=== PATIENT | male | born 1950 | race Hispanic/Latino ===

== ENCOUNTER 2018-07-25 07:42 | Emergency (ER) | payer OTHER ==
[2018-07-25 08:33] LABS: Absolute Lymphocytes (CBC) 1.2 K/uL (0.7-4.9); Absolute Monocytes 0.4 K/uL (0.1-1.3); Absolute Neutrophil 3.1 K/uL (1.8-8.0); Basophils % 0.5 % (0-1.3); Eosinophils % 3.6 % (0-4.4); Lymphocytes % 23.5 % (15.3-44.8); MCH 30.1 pg (27.0-35.0); MCV 87.8 fL (80-100); Monocytes % 8.3 % (3.3-12.3); RBC Red Blood Cell Count 4.32 M/uL (4.33-5.43)
[2018-07-25] MEDS ORDERED: PANTOPRAZOLE 40 MG INJ ONE (08:42)
[2018-07-25 08:51] LABS: Albumin 3.9 g/dL (3.4-5.0); Bilirubin Total 0.4 mg/dL (0.2-1.0); Potassium 4.1 mmol/L (3.5-5.1); Protein, Total 7.5 g/dL (6.4-8.2)
--- NOTE | 2018-07-25 09:10 | RAD REPORT ---
EXAM DESCRIPTION: US - Extrem Venous W Compress Jorge - 07/25/2018 8:57 am CLINICAL HISTORY: Leg pain and swelling COMPARISON: Right leg DVT study November 2017 TECHNIQUE: Real-time sonographic evaluation of the bilateral lower extremity common femoral, superfi cial femoral, popliteal and posterior tibial veins was performed. FINDINGS: Normal compressibility, flow augmentation, phasic flow and spontaneous flow are identified in the left and right lower extremity common femoral, superficial femoral, popliteal and posterior t ibial veins. No intraluminal filling defects seen. IMPRESSION: No DVT in either lower extremity.
--- NOTE | 2018-07-25 09:35 | RAD REPORT ---
EXAM DESCRIPTION: CT - Abdomen Pelvis W/Wo Contrast - 07/25/2018 9:11 am CLINICAL HISTORY: Abdominal pain, GI bleed, left leg pain COMPARISON: None. TECHNIQUE: Biphasic, helical CT imaging of the abdomen and pelvis was performed following 100 ml non -ionic IV contrast. Precontrast images of the abdomen were obtained. No oral contrast administered. All CT scans are performed using dose optimization technique as appropriate and may include automated exposure control or mA/KV adjustment according to patient size. FINDINGS: Patchy alveolar opacities are present in the medial right lung base. Patient has some comp onent of lung base scarring and prominent fatty tissues secondary to Bochdalek's type hernias in each medial hemidiaphragm. A small hiatal hernia is present with approximately 15% of the stomach intrath oracic. No pericardial thickening or effusion. No pleural effusion. Liver shows a diffuse fatty infiltration pattern. Left lobe is prominent. No capsular nodularity or f ocal liver parenchymal lesions seen. No splenomegaly or suspicious splenic finding. Pancreas and beto pancreatic tissues without significant finding. Gallbladder and biliary tree are also without suspici ous finding. Symmetric renal function is seen with no hydronephrosis or suspicious renal mass. No pyelonephritis o r acute renal parenchymal mass. Contracted urinary bladder shows no suspicious finding. Prostate glan d and seminal vesicles within normal limits. No gastric wall thickening or suspicious gastric mass identifiable. Only a small amount of content pr esent within the lumen. No dilated small bowel or bowel wall thickening present. No appendicitis find ings. There is a moderate volume of stool throughout the colon. Sigmoid is tortuous with minimal dive rticulosis. No diverticulitis. No colon wall thickening or mass identifiable. No abnormality on this examination to explain GI bleed. No appendicitis findings. No free air, free fluid or inflammatory st randing. No mass or bulky lymphadenopathy. Patient has a very small umbilical hernia. Small bilatera l fat filled inguinal hernias are present. No adrenal abnormality. No suspicious bony findings. Bony degenerative changes are present. L5 pars interarticularis defects are present with grade 1 spondylolisthesis. Prominent L5-S1 degenerative disc disease present. IMPRESSION: Redundant sigmoid colon with mild diverticulosis. No diverticulitis. There is moderate stool volume throughout the colon. No acute colon finding identifiable. No acute GI process seen and no abnormality to explain GI bleed. Hiatal hernia with approximately 15% of the stomach intrathoracic. No specific finding for gastritis or gastric mass. Fatty infiltration of the liver. Hiatal hernia and bilateral Bochdalek's type hernias in each medial hemidiaphragm. Patient has very m inimal umbilical fat hernia and small bilateral inguinal hernias. No acute components. Minimal medial right base lung parenchymal opacification that is probably atelectasis rather than ear ly pneumonia.
--- NOTE | 2018-07-25 10:25 | EDPHYS ---
Physician Documentation [facility] Name: Anthony Rooney Age: 67 yrs Sex: Male : 1950 Arrival Date: 07/25/2018 Time: 07:46 Bed 19 Private MD: KVNG LUZ ED Physician Timothy Albert HPI: 07/25 08:12 This 67 yrs old Male presents to ER via Ambulatory with complaints of ps1 Abdominal Pain, Leg Pain, Bloody Stools. 08:12 patient describing epigastric pain and associated hematochezia. Streaking on toilet ps1 paper. Onset was 3 days ago. Remote history of the same in which he had cauterization of epigastric ulcer. Pain rated as mild. 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 No remitting or exacerbating factors. Additionally patient has left leg pain extending from the groin to the calf. No hx of DVT. . Historical: - Allergies: 07:59 NKA; tw2 - PMHx: 07:59 Hypertension; Diabetes - IDDM; tw2 - PSHx: 07:59 None; tw2 - Immunization history:: Adult Immunizations. - Social history:: Patient uses alcohol, on a daily basis. Smoking status: Patient/guardian denies using tobacco. - Ebola Screening: : Patient denies travel to an Ebola-affected area in the 21 days before illness onset. ROS: 08:12 Constitutional: Negative for fever, chills, and weight loss, Eyes: Negative for injury, ps1 pain, redness, and discharge, Cardiovascular: Negative for chest pain, palpitations, and edema, Respiratory: Negative for shortness of breath, cough, wheezing, and pleuritic chest pain, Back: Negative for injury and pain, Skin: Negative for injury, rash, and discoloration, Neuro: Negative for headache, weakness, numbness, tingling, and seizure. 08:12 Abdomen/GI: Positive for abdominal pain, black/tarry stool, rectal bleeding. 08:12 MS/extremity: Positive for pain. Exam: 08:12 Constitutional: This is a well developed, well nourished patient who is awake, alert, ps1 and in no acute distress. Head/Face: Normocephalic, atraumatic. Chest/axilla: Normal chest wall appearance and motion. Nontender with no deformity. No lesions are appreciated. Cardiovascular: Regular rate and rhythm. No gallops, murmurs, or rubs. Normal PMI, no JVD. No pulse deficits. Respiratory: Lungs have equal breath sounds bilaterally, clear to auscultation and percussion. No rales, rhonchi or wheezes noted. No increased work of breathing, no retractions or nasal flaring. Abdomen/GI: Soft, non-tender, with normal bowel sounds. No distension or tympany. No guarding or rebound. No evidence of tenderness throughout. Neuro: Awake and alert, GCS 15, oriented to person, place, time, and situation. Cranial nerves II-XII grossly intact. Sensory grossly intact. Psych: Awake, alert, with orientation to person, place and time. Behavior, mood, and affect are within normal limits. 08:12 Musculoskeletal/extremity: Extremities: grossly normal except: noted in the left leg: tenderness. Vital Signs: 07:59 BP 200 / 99; Pulse 93; Resp 16; Temp 97.9(TE); Pulse Ox 99% on R/A; Weight 99.79 kg; ss Height 5 ft. 9 in. (175.26 cm); Pain 2/10; 08:56 BP 165 / 88; Pulse 74; Resp 17; Pulse Ox 97% on R/A; tw2 09:52 BP 179 / 83; Pulse 80; Resp 17; Pulse Ox 100% on R/A; tw2 10:35 BP 181 / 98; Pulse 75; Resp 17; Pulse Ox 97% on R/A; tw2 07:59 Body Mass Index 32.49 (99.79 kg, 175.26 cm) MDM: 08:07 Patient medically screened. ps1 10:22 Data reviewed: vital signs, nurses notes, lab test result(s), radiologic studies, CT ps1 scan, and as a result, I will discharge patient. 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 ED course: hgb stable. No new episodes of christo blood. Protonix given. Home with the same. Precautions given. Stable for discharge. 07/25 08:05 Order name: CBC with Diff; Complete Time: 08:38 ps1 07/25 08:05 Order name: Creatinine for Radiology; Complete Time: 08:52 ps1 07/25 08:05 Order name: Lipase; Complete Time: 08:52 ps1 07/25 08:05 Order name: CMP; Complete Time: 08:52 ps1 07/25 08:05 Order name: CT Abd/Pelvis- W/WO Contrast; Complete Time: 10:18 ps1 07/25 10:01 Order name: Urine Dipstick--Ancillary (enter results) bd 07/25 08:05 Order name: IV Saline Lock; Complete Time: 08:28 ps1 07/25 08:05 Order name: Labs collected and sent; Complete Time: 08:28 ps1 07/25 08:05 Order name: Urine Dipstick-Ancillary (obtain specimen); Complete Time: 10:05 [facility] 07/25 08:17 Order name: Extrem Venous W Compression Jorge US; Complete Time: 09:18 ps1 Administered Medications: 08:38 Drug: ProTONIX 80 mg Route: IVP; Site: left antecubital; tw2 09:39 Follow up: Response: No adverse reaction tw2 Disposition: 07/25/18 10:25 Discharged to Home. Impression: GI bleed, Uncontrolled Hypertension, Fatty liver. - Condition is Stable. - Discharge Instructions: Rectal Bleeding. - Prescriptions for Protonix 40 mg Oral Tablet - take 1 tablet by ORAL route once daily; 30 tablet. - Medication Reconciliation Form, Thank You Letter, Antibiotic Education, Prescription Opioid Use form. - Follow up: KVNG LUZ; When: As needed; Reason: Further diagnostic work-up, Recheck today's complaints, Continuance of care, Re-evaluation by your physician. Follow up: Thiago Velasquez MD; When: 48 Hours; Reason: Further diagnostic work-up, Recheck today's complaints, Continuance of care, Re-evaluation by your physician. - Problem is new. - Symptoms have improved. Signatures: Dispatcher [employer] Nicole Gomez, RN RN tw2 Timothy Albert MD MD ps1 Corrections: (The following items were deleted from the chart) 10:36 10:25 07/25/2018 10:25 Discharged to Home. Impression: GI bleed; Uncontrolled tw2 Hypertension; Fatty liver. Condition is Stable. Forms are Medication Reconciliation Form, Thank You Letter, Antibiotic Education, Prescription Opioid Use. Follow up: KVNG LUZ; When: As needed; Reason: Further diagnostic work-up, Recheck today's complaints, Continuance of care, Re-evaluation by your physician. Follow up: Thiago Velasquez; When: 48 Hours; Reason: Further diagnostic work-up, Recheck today's complaints, Continuance of care, Re-evaluation by your physician. Problem is new. Symptoms have improved. ps1
--- NOTE | 2018-07-25 10:25 | ER ---
Nurse's Notes [facility] Name: Anthony Rooney Age: 67 yrs Sex: Male : 1950 Arrival Date: 07/25/2018 Time: 07:46 Bed 19 Private MD: KVNG LUZ Diagnosis: GI bleed;Uncontrolled Hypertension;Fatty liver Presentation: 07/25 07:59 Presenting complaint: Patient states: dark red blood in stool that began 3 days ago ss with epigastric burning and nausea. Pt also c/o pain to L leg and is concerned because he believes he has poor circulation. Transition of care: patient was not received from another setting of care. Onset of symptoms was July 22, 2018. Risk Assessment: Do you want to hurt yourself or someone else? Patient reports no desire to harm self or others. Initial Sepsis Screen: Does the patient meet any 2 criteria? No. Patient's initial sepsis screen is negative. Does the patient have a suspected source of infection? No. Patient's initial sepsis screen is negative. Care prior to arrival: None. 07:59 Method Of Arrival: Ambulatory ss 07:59 Acuity: NAE 3 ss 08:00 Onset of symptoms was July 22, 2018. Risk Assessment: Do you want to hurt yourself tw2 or someone else? Patient reports no desire to harm self or others. Initial Sepsis Screen: Does the patient meet any 2 criteria? No. Patient's initial sepsis screen is negative. Does the patient have a suspected source of infection? No. Patient's initial sepsis screen is negative. Care prior to arrival: None. Historical: - Allergies: 07:59 NKA; tw2 - PMHx: 07:59 Hypertension; Diabetes - IDDM; tw2 - PSHx: 07:59 None; tw2 - Immunization history:: Adult Immunizations. - Social history:: Patient uses alcohol, on a daily basis. Smoking status: Patient/guardian denies using tobacco. - Ebola Screening: : Patient denies travel to an Ebola-affected area in the 21 days before illness onset. Screenin:58 Abuse screen: Denies threats or abuse. Nutritional screening: No deficits noted. tw2 Tuberculosis screening: No symptoms or risk factors identified. Fall Risk None identified. Assessment: 07:57 General: Appears in no apparent distress. well groomed, Behavior is calm, cooperative, tw2 appropriate for age. Pain: Complains of pain in epigastric area. Neuro: Level of Consciousness is awake, alert, obeys commands, Oriented to person, place, time, situation. Cardiovascular: Denies chest pain, shortness of breath, Heart tones S1 S2 Patient's skin is warm and dry. Respiratory: Airway is patent Respiratory effort is even, unlabored, Respiratory pattern is regular, symmetrical, Breath sounds are clear bilaterally. GI: Abdomen is round non-distended, Bowel sounds present X 4 quads. Abd is soft X 4 quads Reports bloody stool, nausea, since 3days. : No signs and/or symptoms were reported regarding the genitourinary system. EENT: No signs and/or symptoms were reported regarding the EENT system. Derm: No signs and/or symptoms reported regarding the dermatologic system. Musculoskeletal: Range of motion: intact in all extremities. 08:56 Reassessment: Patient appears in no apparent distress at this time. No changes from tw2 previously documented assessment. Patient and/or family updated on plan of care and expected duration. Pain level reassessed. Patient is alert, oriented x 3, equal unlabored respirations, skin warm/dry/pink. 10:00 Reassessment: Patient appears in no apparent distress at this time. No changes from tw2 previously documented assessment. Patient and/or family updated on plan of care and expected duration. Pain level reassessed. Patient is alert, oriented x 3, equal unlabored respirations, skin warm/dry/pink. 10:35 Reassessment: Patient appears in no apparent distress at this time. No changes from tw2 previously documented assessment. Patient and/or family updated on plan of care and expected duration. Pain level reassessed. Patient is alert, oriented x 3, equal unlabored respirations, skin warm/dry/pink. Vital Signs: 07:59 BP 200 / 99; Pulse 93; Resp 16; Temp 97.9(TE); Pulse Ox 99% on R/A; Weight 99.79 kg; ss Height 5 ft. 9 in. (175.26 cm); Pain 10/23; 08:56 BP 165 / 88; Pulse 74; Resp 17; Pulse Ox 97% on R/A; tw2 09:52 BP 179 / 83; Pulse 80; Resp 17; Pulse Ox 100% on R/A; tw2 10:35 BP 181 / 98; Pulse 75; Resp 17; Pulse Ox 97% on R/A; tw2 07:59 Body Mass Index 32.49 (99.79 kg, 175.26 cm) ED Course: 07:46 Patient arrived in ED. sb2 07:47 KVNG LUZ is Private Physician. sb2 07:52 Timothy Albert MD is Attending Physician. ps1 07:54 Nicole Perez RN is Primary Nurse. tw2 07:54 Arm band placed on. tw2 07:54 Placed in gown. Bed in low position. Adult w/ patient. Pulse ox on. NIBP on. Warm tw2 blanket given. 08:01 Triage completed. ss 08:10 Inserted saline lock: 22 gauge in left antecubital area, using aseptic technique. Blood tw2 collected. Missed attempt(s): 22 gauge in left forearm. Bleeding controlled, band aid applied, catheter tip intact. 08:56 Extrem Venous W Compression Jorge US In Process Unspecified. EDMS 09:11 CT Abd/Pelvis- W/WO Contrast In Process Unspecified. EDMS 10:24 KVNG LUZ is Referral Physician. ps1 10:24 Thiago Velasquez MD is Referral Physician. ps1 10:35 No provider procedures requiring assistance completed. IV discontinued, intact, tw2 bleeding controlled, No redness/swelling at site. Pressure dressing applied. Administered Medications: 08:38 Drug: ProTONIX 80 mg Route: IVP; Site: left antecubital; tw2 09:39 Follow up: Response: No adverse reaction tw2 Outcome: 10:25 Discharge ordered by . ps1 10:36 Discharged to home ambulatory. tw2 10:36 Condition: stable 10:36 Discharge instructions given to patient, Instructed on discharge instructions, follow up and referral plans. medication usage, Demonstrated understanding of instructions, follow-up care, medications, Prescriptions given X 1. 10:36 Patient left the ED. tw2 Signatures: Dispatcher [employer] EDLisbeth Lowe RN RN Nicole Perez RN RN tw2 Timothy Albert MD MD ps1 Shazia Mcmanus sb2
[2018-07-25 10:40] LABS: Urine Blood NEGATIVE (NEG); Urine Glucose 2+ (NEG); Urine Protein 1+ (NEG); Urine Specific Gravity 1.015 (1.005-1.030); Urine pH 7.5 (5.0-7.0)
[2018-07-25 10:49] VITALS: TEMP 97.9
[2018-07-25 10:53] VITALS: BP 181/98; O2SAT 97
== END 2018-07-25 10:36 | disposition home or self-care (01) ==
LOC: ER 07:42
DX: I10 Essential (primary) hypertension (principal); K76.0 Fatty (change of) liver, not elsewhere classified
CPT/HCPCS: 36415; 74178; 80053; 81003; 83690; 85025; 93970; 96374; 99284; C9113; Q9967

== ENCOUNTER 2018-08-03 08:58 | Emergency (ER) | payer OTHER ==
[2018-08-03] MEDS ORDERED: NA CHLORIDE 0.9% 1,000 ML ONE (09:31)
[2018-08-03 09:38] LABS: Absolute Lymphocytes (CBC) 1.4 K/uL (0.7-4.9); Absolute Monocytes 0.4 K/uL (0.1-1.3); Absolute Neutrophil 3.2 K/uL (1.8-8.0); Eosinophils % 2.5 % (0-4.4); Hematocrit 30.6 % (39.6-49.0); Lymphocytes % 26.9 % (15.3-44.8); MCH 30.8 pg (27.0-35.0); MPV 6.7 fL (7.6-11.3); Monocytes % 7.7 % (3.3-12.3); RBC Red Blood Cell Count 3.48 M/uL (4.33-5.43)
[2018-08-03 09:51] LABS: Protime INR 1.2
[2018-08-03 09:55] LABS: ALT/SGPT 35 U/L (12-78); AST/SGOT 22 U/L (15-37); Albumin 3.8 g/dL (3.4-5.0); Alkaline Phosphatase 79 U/L (45-117); BUN Blood Urea Nitrogen 24 mg/dL (7-18); Bicarbonate 29 mmol/L (21-32); Bilirubin Direct 0.1 mg/dL (0-0.2); Bilirubin Total 0.4 mg/dL (0.2-1.0); Glucose Level 211 mg/dL (74-106); Lipase 119 U/L (73-393); Magnesium 3.1 mg/dL (1.8-2.4); NT PRO-BNP 206 pg/mL (<125); Potassium 3.5 mmol/L (3.5-5.1); Sodium Level 140 mmol/L (136-145); Troponin (Emerg Dept Use Only) < 0.02 ng/mL (0.0-0.045)
--- NOTE | 2018-08-03 10:27 | EKG ---
Test Date: 2018-08-03 Test Time: 10:02:02 Brick Catcher: MARION MEASUREMENT RESULTS: Intervals: Rate: 65 IA: 172 QRSD: 98 QT: 448 QTc: 465 [place]: P: 3 IA: 172 QRS: 0 T: 74 INTERPRETIVE STATEMENTS: Normal sinus rhythm Minimal voltage criteria for LVH, may be normal variant Prolonged QT Abnormal ECG Compared to ECG 02/08/2017 06:43:50 Left ventricular hypertrophy now present Prolonged QT interval now present Electronically Signed On 08-03-18 10:26:43 RECEPTION AGENT by Chay Contreras
--- NOTE | 2018-08-03 10:55 | RAD REPORT ---
EXAM DESCRIPTION: RAD - Chest Single View - 08/03/2018 10:37 am CLINICAL HISTORY: COUGH Chest pain. COMPARISON: Chest Single View dated 02/07/2017 FINDINGS: Portable technique limits examination quality. The lungs are grossly clear. The heart is normal in size. No displaced fractures. IMPRESSION: No acute intrathoracic process suspected.
[2018-08-03 10:59] LABS: Urine Blood NEGATIVE (NEG); Urine Glucose NEGATIVE (NEG); Urine Protein 1+ (NEG); Urine Specific Gravity >1.030 (1.005-1.030)
--- NOTE | 2018-08-03 14:17 | RAD REPORT ---
EXAM DESCRIPTION: NM - GI Blood Loss Imaging - 08/03/2018 2:09 pm CLINICAL HISTORY: rectal bleed Abdominal pain COMPARISON: Abdomen Pelvis W/Wo Contrast dated 07/25/2018 FINDINGS: The patient was administered 26 millicuries technetium RBCs. Increased radiopharmaceutical accumulation is seen in the region of the hepatic flexure of the colon demonstrating some movement with time. This is most compatible with active GI bleeding. IMPRESSION: Active GI bleeding is suspected in the hepatic flexure of the colon.
[2018-08-03] MEDS ORDERED: CIPROFLOXACIN 400mg IV 400 MG/200 ML BAG IV ONE (14:43)
[2018-08-03] MEDS ORDERED: FAMOTIDINE 20 MG/2 ML VIAL IV ONE (14:43)
[2018-08-03] MEDS ORDERED: LABETALOL 20 MG/4ML SYRINGE IV ONE ×3 (14:43→22:22)
[2018-08-03] MEDS ORDERED: METRONIDAZOLE 500mg IVPB 500 MG/100 ML BAG IV ONE (14:43)
--- NOTE | 2018-08-03 14:49 | EDPHYS ---
Physician Documentation [facility] Name: Anthony Rooney Age: 67 yrs Sex: Male : 1950 Arrival Date: 08/03/2018 Time: 09:02 Bed 16 Private MD: Justice Moulton H ED Physician Eduar Smith HPI: 08/03 13:06 This 67 yrs old Male presents to ER via Ambulatory with complaints of Rectal fabrice Bleeding. 13:06 The patient presents to the emergency department with bleeding from the rectum/anus, fabrice that is moderate. Onset: The symptoms/episode began/occurred 2 day(s) ago. Context: the patient has no known special context relating to the rectal area complaint(s). Modifying factors: The symptoms are alleviated by nothing, The symptoms are aggravated by nothing. Associate signs and symptoms: The patient has no apparent associated signs or symptoms. The patient has not experienced similar symptoms in the past. Historical: - Allergies: 09:15 NKA; ss - Home Meds: 09:15 unknown cholesterol medicaiton [Active]; Victoza 1.8 units BID [Active]; metformin ss 1,000 mg Oral tab 1 tab 2 times per day [Active]; Lisinopril 20 mg BID [Active]; 09:30 diclofenac sodium 75 mg tablet, delayed release PRN [Active]; omeprazole 20 mg Oral ss cpDR 1 cap once daily [Active]; Reglan 10 mg Oral tab 3 tabs "use as directed by your colonoscopy packet instructions" [Active]; - PMHx: 09:15 Diabetes - IDDM; Hypertension; High Cholesterol; ss - Immunization history:: Adult Immunizations unknown, Flu vaccine is not up to date. - Social history:: Smoking status: Patient/guardian denies using tobacco. - Ebola Screening: : Patient denies exposure to infectious person Patient denies travel to an Ebola-affected area in the 21 days before illness onset. - Family history:: not pertinent. ROS: 13:06 Constitutional: Negative for fever, chills, and weight loss, Eyes: Negative for injury, fabrice pain, redness, and discharge, ENT: Negative for injury, pain, and discharge, Neck: Negative for injury, pain, and swelling, Cardiovascular: Negative for chest pain, palpitations, and edema, Respiratory: Negative for shortness of breath, cough, wheezing, and pleuritic chest pain, Back: Negative for injury and pain, : Negative for injury, bleeding, discharge, and swelling, MS/Extremity: Negative for injury and deformity, Skin: Negative for injury, rash, and discoloration, Neuro: Negative for headache, weakness, numbness, tingling, and seizure, Psych: Negative for depression, anxiety, suicide ideation, homicidal ideation, and hallucinations, Allergy/Immunology: Negative for hives, rash, and allergies, Endocrine: Negative for neck swelling, polydipsia, polyuria, polyphagia, and marked weight changes, Hematologic/Lymphatic: Negative for swollen nodes, abnormal bleeding, and unusual bruising. 13:06 Abdomen/GI: Positive for abdominal pain, of the right lower quadrant and left lower quadrant. Exam: 13:06 Constitutional: This is a well developed, well nourished patient who is awake, alert, fabrice and in no acute distress. Head/Face: Normocephalic, atraumatic. Eyes: Pupils equal round and reactive to light, extra-ocular motions intact. Lids and lashes normal. Conjunctiva and sclera are non-icteric and not injected. Cornea within normal limits. Periorbital areas with no swelling, redness, or edema. ENT: Nares patent. No nasal discharge, no septal abnormalities noted. Tympanic membranes are normal and external auditory canals are clear. Oropharynx with no redness, swelling, or masses, exudates, or evidence of obstruction, uvula midline. Mucous membranes moist. Neck: Trachea midline, no thyromegaly or masses palpated, and no cervical lymphadenopathy. Supple, full range of motion without nuchal rigidity, or vertebral point tenderness. No Meningismus. Chest/axilla: Normal chest wall appearance and motion. Nontender with no deformity. No lesions are appreciated. Cardiovascular: Regular rate and rhythm with a normal S1 and S2. No gallops, murmurs, or rubs. Normal PMI, no JVD. No pulse deficits. Respiratory: Lungs have equal breath sounds bilaterally, clear to auscultation and percussion. No rales, rhonchi or wheezes noted. No increased work of breathing, no retractions or nasal flaring. Abdomen/GI: Soft, non-tender, with normal bowel sounds. No distension or tympany. No guarding or rebound. No evidence of tenderness throughout. Back: No spinal tenderness. No costovertebral tenderness. Full range of motion. Male : Normal genitalia with no discharge or lesions. Skin: Warm, dry with normal turgor. Normal color with no rashes, no lesions, and no evidence of cellulitis. MS/ Extremity: Pulses equal, no cyanosis. Neurovascular intact. Full, normal range of motion. Neuro: Awake and alert, GCS 15, oriented to person, place, time, and situation. Cranial nerves II-XII grossly intact. Motor strength 5/5 in all extremities. Sensory grossly intact. Cerebellar exam normal. Normal gait. Psych: Awake, alert, with orientation to person, place and time. Behavior, mood, and affect are within normal limits. Vital Signs: 09:15 Resp 16; Weight 99.79 kg; Height 5 ft. 9 in. (175.26 cm); Pain 6/10; ss 09:32 BP 165 / 78; Pulse 67; Resp 16; Pulse Ox 98% on R/A; la1 10:36 BP 170 / 70; Pulse 65; Resp 18; Pulse Ox 100% on R/A; la1 10:44 Temp 97.3(TE); ss 11:55 BP 177 / 77; Pulse 63; Resp 16; Pulse Ox 97% on R/A; ss 12:13 BP 188 / 64; Pulse 64; Resp 16; Pulse Ox 98% on R/A; la1 14:28 Pulse 64; Resp 16; Temp 97.5; Pulse Ox 98% on R/A; la1 15:18 BP 187 / 74; Pulse 74; Resp 16; Pulse Ox 98% on R/A; la1 15:50 BP 169 / 76; Pulse 62; Resp 16; Pulse Ox 98% on R/A; la1 16:58 BP 165 / 81; Pulse 61; Resp 16; Pulse Ox 98% on R/A; la1 18:16 BP 180 / 70; Pulse 65; Resp 16; Pulse Ox 98% on R/A; la1 18:44 BP 189 / 89; Pulse 62; Resp 16; Pulse Ox 97% on R/A; la1 19:54 BP 176 / 70; Pulse 60; Resp 16; Pulse Ox 96% on R/A; jb4 20:54 BP 165 / 72; Pulse 64; Resp 16; Pulse Ox 98% on R/A; jb4 21:30 BP 154 / 87; Pulse 67; Resp 16; Pulse Ox 100% on R/A; jb4 09:15 Body Mass Index 32.49 (99.79 kg, 175.26 cm) ss MDM: 09:12 Patient medically screened. [facility] 13:07 Data reviewed: vital signs, nurses notes, lab test result(s), EKG, radiologic studies, [facility] plain films, nuclear scan,rbc. 08/03 09:12 Order name: Basic Metabolic Panel [facility] 08/03 09:12 Order name: CBC with Diff [facility] 08/03 09:12 Order name: LFT's [facility] 08/03 09:12 Order name: Magnesium [facility] 08/03 09:12 Order name: NT PRO-BNP; Complete Time: 12:16 [facility] 08/03 09:12 Order name: PT-INR; Complete Time: 12:16 [facility] 08/03 09:12 Order name: Troponin (emerg Dept Use Only); Complete Time: 12:16 [facility] 08/03 09:12 Order name: Lipase; Complete Time: 12:16 [facility] 08/03 09:12 Order name: Type And Screen; Complete Time: 12:16 [facility] 08/03 09:12 Order name: Urine Culture [facility] 08/03 09:13 Order name: Basic Metabolic Panel; Complete Time: 12:16 EDCT 08/03 09:13 Order name: CBC with Automated Diff; Complete Time: 12:16 [facility] 08/03 09:13 Order name: Liver (Hepatic) Function; Complete Time: 12:16 [facility] 08/03 09:13 Order name: Magnesium; Complete Time: 12:16 [facility] 08/03 09:12 Order name: XRAY Chest (1 view); Complete Time: 12:16 [facility] 08/03 09:12 Order name: EKG; Complete Time: 09:15 [facility] 08/03 09:15 Order name: GI Blood Loss Imaging; Complete Time: 14:23 EDCT 08/03 10:09 Order name: ABO/RH no charge; Complete Time: 12:16 [facility] 08/03 10:55 Order name: Urine Dipstick--Ancillary (enter results) 08/03 13:56 Order name: Glucose, Ancillary Testing; Complete Time: 14:23 EDCT 08/03 14:29 Order name: CBC with Diff; Complete Time: 19:50 [facility] 08/03 09:12 Order name: Cardiac monitoring; Complete Time: : [facility] 08/03 09:12 Order name: EKG - Nurse/Tech; Complete Time: : [facility] 08/03 09:12 Order name: IV Saline Lock; Complete Time: : [facility] 08/03 09:12 Order name: Labs collected and sent; Complete Time: : [facility] 08/03 09:12 Order name: O2 Per Protocol; Complete Time: : [facility] 08/03 09:12 Order name: O2 Sat Monitoring; Complete Time: : [facility] 08/03 09:12 Order name: Urine Dipstick-Ancillary (obtain specimen); Complete Time: 10:44 [facility] 08/03 14:24 Order name: NPO; Complete Time: 14:27 [facility] Administered Medications: 09:27 Drug: NS 0.9% 1000 ml Route: IV; Rate: 125 ml/hr; Site: right antecubital; la1 18:17 Follow up: IV Status: Completed infusion la1 14:54 Drug: Cipro 400 mg Volume: 200 ml; Route: IVPB; Infused Over: 60 mins; Site: right la1 antecubital; 16:19 Follow up: IV Status: Completed infusion la1 14:54 Drug: Trandate 20 mg Route: IVP; Site: right antecubital; la1 16:18 Follow up: Response: No adverse reaction; Blood pressure is lowered la1 15:00 Drug: Pepcid 20 mg Route: IVP; Site: right antecubital; la1 16:19 Follow up: Response: No adverse reaction la1 15:18 Drug: Flagyl 500 mg Volume: 100 ml; Route: IVPB; Rate: 200 ml/hr; Infused Over: 30 la1 mins; Site: right antecubital; 16:19 Follow up: IV Status: Completed infusion la1 18:52 Drug: Labetalol 10 mg Route: IVP; Infused Over: 2 mins; Site: right antecubital; la1 20:56 Follow up: Response: No adverse reaction; Blood pressure is lowered jb4 19:00 Drug: Zofran 4 mg Route: IVP; Site: right antecubital; la1 19:53 Follow up: Response: No adverse reaction; Nausea is decreased jb4 19:01 Drug: fentaNYL (PF) 50 mcg Route: IVP; Site: right antecubital; la1 19:53 Follow up: Response: No adverse reaction; Pain is decreased jb4 22:21 Drug: Labetalol 10 mg Route: IVP; Infused Over: 2 mins; Site: right antecubital; jb4 22:25 Follow up: Response: No adverse reaction jb4 Point of Care Testing: Blood Glucose: 09:32 Blood Glucose: 198 mg/dL; la1 Ranges: Critical Glucose Levels:Adult <50 mg/dl or >400 mg/dl <40 mg/dl or >180 mg/dl Disposition: 08/03/18 14:49 Transfer ordered to [facility]. Diagnosis are Gastrointestinal hemorrhage, unspecified - lower gi, hepatic flexure, Essential (primary) hypertension, Anemia, unspecified. - Reason for transfer: Higher level of care. - Accepting physician is to [facility]. - Condition is Fair. - Problem is new. - Symptoms have improved. Signatures: Dispatcher [employer] EDMS Eduar Smith MD MD cha Smirch, Shelby, RN RN Hilario Alonzo RN RN la1 Ty Scott RN RN jb4 Corrections: (The following items were deleted from the chart) 22: 14:49 08/03/2018 14:49 Transfer ordered to [facility]. Diagnosis is jb4 Gastrointestinal hemorrhage, unspecified - lower gi, hepatic flexure; Essential (primary) hypertension; Anemia, unspecified. Reason for transfer: Higher level of care. Accepting physician is to [facility]. Condition is Fair. Problem is new. Symptoms have improved. fabrice
--- NOTE | 2018-08-03 14:49 | ER ---
Nurse's Notes [facility] Name: Anthony Rooney Age: 67 yrs Sex: Male : 1950 Arrival Date: 08/03/2018 Time: 09:02 Bed 16 Private MD: Justice Moulton H Diagnosis: Gastrointestinal hemorrhage, unspecified-lower gi, hepatic flexure;Essential (primary) hypertension;Anemia, unspecified Presentation: 08/03 09:10 Presenting complaint: Patient states: small amount of bright red bleeding from rectum ss after colonoscopy this AM. Dr. Rivers sent patient over for abd CT. Transition of care: GI center/ Dr. Moulton. Onset of symptoms was August 03, 2018. Risk Assessment: Do you want to hurt yourself or someone else? Patient reports no desire to harm self or others. Initial Sepsis Screen: Does the patient have a suspected source of infection? No. Patient's initial sepsis screen is negative. Care prior to arrival: IV initiated. 22 GA, in the right antecubital area. 09:10 Method Of Arrival: Ambulatory ss 09:10 Acuity: NAE 3 ss 09:30 Initial Sepsis Screen: Does the patient meet any 2 criteria? No. Patient's initial la1 sepsis screen is negative. Historical: - Allergies: 09:15 NKA; ss - Home Meds: 09:15 unknown cholesterol medicaiton [Active]; Victoza 1.8 units BID [Active]; metformin ss 1,000 mg Oral tab 1 tab 2 times per day [Active]; Lisinopril 20 mg BID [Active]; 09:30 diclofenac sodium 75 mg tablet, delayed release PRN [Active]; omeprazole 20 mg Oral ss cpDR 1 cap once daily [Active]; Reglan 10 mg Oral tab 3 tabs "use as directed by your colonoscopy packet instructions" [Active]; - PMHx: 09:15 Diabetes - IDDM; Hypertension; High Cholesterol; ss - Immunization history:: Adult Immunizations unknown, Flu vaccine is not up to date. - Social history:: Smoking status: Patient/guardian denies using tobacco. - Ebola Screening: : Patient denies exposure to infectious person Patient denies travel to an Ebola-affected area in the 21 days before illness onset. - Family history:: not pertinent. Screenin:28 Abuse screen: Denies threats or abuse. Nutritional screening: No deficits noted. la1 Tuberculosis screening: No symptoms or risk factors identified. Fall Risk None identified. Assessment: 09:29 General: Appears comfortable, Behavior is calm, cooperative. Pain: Denies pain. Neuro: la1 Level of Consciousness is awake, alert, obeys commands, Oriented to person, place, time, situation. Cardiovascular: Heart tones S1 S2 present Capillary refill < 3 seconds Patient's skin is warm and dry. Respiratory: Airway is patent Respiratory effort is even, unlabored, Respiratory pattern is regular, symmetrical, Breath sounds are clear bilaterally. GI: Abdomen is non-distended, Bowel sounds present X 4 quads. Abd is soft and non tender X 4 quads. Reports small amount of bright red blood in stool. : No signs and/or symptoms were reported regarding the genitourinary system. 10:35 Reassessment: Patient appears in no apparent distress at this time. No changes from la1 previously documented assessment. Patient and/or family updated on plan of care and expected duration. Pain level reassessed. Patient is alert, oriented x 3, equal unlabored respirations, skin warm/dry/pink. 12:04 Reassessment: Patient appears in no apparent distress at this time. No changes from la1 previously documented assessment. Patient and/or family updated on plan of care and expected duration. Pain level reassessed. Patient is alert, oriented x 3, equal unlabored respirations, skin warm/dry/pink. 12:22 Reassessment: nuclear med at bedside collecting specimen for test. la1 13:50 Reassessment: pt in nuclear med for exam since 1240. la1 14:13 Reassessment: Pt back from nuclear medicine. la1 14:14 Reassessment: Patient appears in no apparent distress at this time. No changes from la1 previously documented assessment. Patient and/or family updated on plan of care and expected duration. Pain level reassessed. Patient is alert, oriented x 3, equal unlabored respirations, skin warm/dry/pink. 15:19 GI: Abdomen is round non-distended, Bowel sounds present X 4 quads. Abd is soft and non la1 tender X 4 quads. Reports upper abdominal pain, nausea. 16:57 Reassessment: Patient appears in no apparent distress at this time. No changes from la1 previously documented assessment. Patient and/or family updated on plan of care and expected duration. Pain level reassessed. Patient is alert, oriented x 3, equal unlabored respirations, skin warm/dry/pink. awaiting transport to [facility]. No ambulances currently available. 18:16 Reassessment: Patient appears in no apparent distress at this time. No changes from la1 previously documented assessment. Patient and/or family updated on plan of care and expected duration. Pain level reassessed. Patient is alert, oriented x 3, equal unlabored respirations, skin warm/dry/pink. still awaiting ground EMS transport to [facility]. 19:54 Reassessment: Patient appears in no apparent distress at this time. Patient and/or jb4 family updated on plan of care and expected duration. Pain level reassessed. Patient is alert, oriented x 3, equal unlabored respirations, skin warm/dry/pink. Pt reports that after having the fentanyl his pain is now 0/10 Patient denies pain at this time. Patient states feeling better. Cardiovascular: Patient's skin is warm and dry. Respiratory: Airway is patent Respiratory effort is even, unlabored, Respiratory pattern is regular, symmetrical. 20:54 Reassessment: Patient appears in no apparent distress at this time. Patient and/or jb4 family updated on plan of care and expected duration. Pain level reassessed. Patient is alert, oriented x 3, equal unlabored respirations, skin warm/dry/pink. Patient denies pain at this time. Patient states feeling better. 22:15 Reassessment: Patient appears in no apparent distress at this time. Patient and/or jb4 family updated on plan of care and expected duration. Pain level reassessed. Patient is alert, oriented x 3, equal unlabored respirations, skin warm/dry/pink. EMS at the bedside. EMS BP reading 202/95. Administered Labetalol as ordered. Vital Signs: 09:15 Resp 16; Weight 99.79 kg; Height 5 ft. 9 in. (175.26 cm); Pain 6/10; ss 09:32 BP 165 / 78; Pulse 67; Resp 16; Pulse Ox 98% on R/A; la1 10:36 BP 170 / 70; Pulse 65; Resp 18; Pulse Ox 100% on R/A; la1 10:44 Temp 97.3(TE); ss 11:55 BP 177 / 77; Pulse 63; Resp 16; Pulse Ox 97% on R/A; ss 12:13 BP 188 / 64; Pulse 64; Resp 16; Pulse Ox 98% on R/A; la1 14:28 Pulse 64; Resp 16; Temp 97.5; Pulse Ox 98% on R/A; la1 15:18 BP 187 / 74; Pulse 74; Resp 16; Pulse Ox 98% on R/A; la1 15:50 BP 169 / 76; Pulse 62; Resp 16; Pulse Ox 98% on R/A; la1 16:58 BP 165 / 81; Pulse 61; Resp 16; Pulse Ox 98% on R/A; la1 18:16 BP 180 / 70; Pulse 65; Resp 16; Pulse Ox 98% on R/A; la1 18:44 BP 189 / 89; Pulse 62; Resp 16; Pulse Ox 97% on R/A; la1 19:54 BP 176 / 70; Pulse 60; Resp 16; Pulse Ox 96% on R/A; jb4 20:54 BP 165 / 72; Pulse 64; Resp 16; Pulse Ox 98% on R/A; jb4 21:30 BP 154 / 87; Pulse 67; Resp 16; Pulse Ox 100% on R/A; jb4 09:15 Body Mass Index 32.49 (99.79 kg, 175.26 cm) ED Course: 09:02 Patient arrived in ED. sb2 09:03 Justice Moulton MD is Private Physician. sb2 09:05 Eduar Smith MD is Attending Physician. fabrice 09:13 Triage completed. ss 09:15 Arm band placed on right wrist. ss 09:21 Hilario Alonzo, MONIKA is Primary Nurse. la1 09:28 Placed in gown. Bed in low position. Call light in reach. criminal justice professor on. Pulse ox la1 on. NIBP on. 09:28 Inserted saline lock: 22 gauge in right antecubital area, using aseptic technique. la1 Blood collected. 10:05 EKG done, by [employer]vac residential service technician. reviewed by Eduar Smith MD. at1 10:36 X-ray completed. Portable x-ray completed in exam room. Patient tolerated procedure mh1 well. 10:37 XRAY Chest (1 view) In Process Unspecified. EDMS 14:10 GI Blood Loss Imaging In Process Unspecified. EDMS 14:10 Note: GI BLEED COMPLETE, NO CHANGE IN PT STATUS. PT RETURNED TO ED. NURSE NOTIFIED. jb2 REJI RT(N), HOME CHILD CARE PROVIDER. 22:21 Primary Nurse role handed off by Hilario Alonzo, RN jb4 22:21 Ty Scott, RN is Primary Nurse. jb4 22:21 No provider procedures requiring assistance completed. jb4 22:21 Patient transferred, IV remains in place. jb4 Administered Medications: 09:27 Drug: NS 0.9% 1000 ml Route: IV; Rate: 125 ml/hr; Site: right antecubital; la1 18:17 Follow up: IV Status: Completed infusion la1 14:54 Drug: Cipro 400 mg Volume: 200 ml; Route: IVPB; Infused Over: 60 mins; Site: right la1 antecubital; 16:19 Follow up: IV Status: Completed infusion la1 14:54 Drug: Trandate 20 mg Route: IVP; Site: right antecubital; la1 16:18 Follow up: Response: No adverse reaction; Blood pressure is lowered la1 15:00 Drug: Pepcid 20 mg Route: IVP; Site: right antecubital; la1 16:19 Follow up: Response: No adverse reaction la1 15:18 Drug: Flagyl 500 mg Volume: 100 ml; Route: IVPB; Rate: 200 ml/hr; Infused Over: 30 la1 mins; Site: right antecubital; 16:19 Follow up: IV Status: Completed infusion la1 18:52 Drug: Labetalol 10 mg Route: IVP; Infused Over: 2 mins; Site: right antecubital; la1 20:56 Follow up: Response: No adverse reaction; Blood pressure is lowered jb4 19:00 Drug: Zofran 4 mg Route: IVP; Site: right antecubital; la1 19:53 Follow up: Response: No adverse reaction; Nausea is decreased jb4 19:01 Drug: fentaNYL (PF) 50 mcg Route: IVP; Site: right antecubital; la1 19:53 Follow up: Response: No adverse reaction; Pain is decreased jb4 22:21 Drug: Labetalol 10 mg Route: IVP; Infused Over: 2 mins; Site: right antecubital; jb4 22:25 Follow up: Response: No adverse reaction jb4 Point of Care Testing: Blood Glucose: 09:32 Blood Glucose: 198 mg/dL; la1 Ranges: Outcome: 14:49 ER care complete, transfer ordered by . fabrice 22:21 Patient left the ED. sherlyn 22:21 Transferred to [facility]. jb4 22:21 Condition: stable 22:21 Discharge instructions given to patient, Instructed on the need for transfer, Demonstrated understanding of instructions. Signatures: Dispatcher [employer] EDMS Eduar Smith MD MD cha Buechter, Jesse jb2 Irina Ortiz mh1 Lisbeth Eng, MONIKA RN ss Jud Dodd, platen press feeder EKG Tat1 Hilario Alonzo RN RN la1 Ty Scott RN RN jb4 Shazia Mcmanus 2
[2018-08-03 18:34] LABS: Absolute Lymphocytes (CBC) 1.2 K/uL (0.7-4.9); Absolute Monocytes 0.4 K/uL (0.1-1.3); Absolute Neutrophil 2.3 K/uL (1.8-8.0); Basophils % 0.9 % (0-1.3); Eosinophils % 2.8 % (0-4.4); Hematocrit 28.3 % (39.6-49.0); Lymphocytes % 30.8 % (15.3-44.8); MCH 30.3 pg (27.0-35.0); MCV 89.8 fL (80-100); MPV 6.4 fL (7.6-11.3); RBC Red Blood Cell Count 3.15 M/uL (4.33-5.43)
[2018-08-03 23:37] VITALS: TEMP 97.5
[2018-08-03 23:45] VITALS: BP 165/72; O2SAT 98
== END 2018-08-03 22:21 | disposition short-term general hospital (02) ==
LOC: ER 08:58
DX: D64.9 Anemia, unspecified (principal); I10 Essential (primary) hypertension; E78.00 Pure hypercholesterolemia, unspecified; E11.9 Type 2 diabetes mellitus without complications
CPT/HCPCS: 36415; 71045; 78278; 80048; 80076; 81003; 82962; 83690; 83735; 83880; 84484; 85025 ×2; 85610; 86850; 86900; 86901; 87086; 87088; 93005; 96361; 96365; 96375; 99285; A9560; J0744; J7030

== ENCOUNTER 2019-02-26 08:07 | Emergency (ER) | payer OTHER ==
--- OUTSIDE RECORDS SUMMARY | 2019-02-26 08:10 | XMS REPORT ---
:1950 [facility] Address [address] [place] [address] Dr. Brown [address] [place] [id number] Care Team Providers Name Role Phone RORO BETTENCOURT Unavailable Unavailable Problems This patient has no known problems. Allergies, Adverse Reactions, Alerts This patient has no known allergies or adverse reactions. Medications This patient has no known medications. Results Test Description Test Time Test Comments Text Results Atomic Results Result Comments TISSUE EXAM 2018-08-08 15:51:00 Surgical Pathology Report Case: [id number] Authorizing Provider: Paulina Simpson MD Collected: 08/05/2018 1009 Ordering Location: [address] Received: 08/05/2018 1409 Service Pathologist: Claude Chacon MD Specimens: A) - Biopsy, Gastric, Random B) - Polyp, Colon - Cecum, Polyp A. STOMACH, RANDOM, BIOPSY: - CHRONIC INACTIVE GASTRITIS - NEGATIVE FOR H. PYLORI BY WARTHIN STARRY STAINB. COLON, CECUM, POLYPECTOMY: - TUBULAR ADENOMA Signing Pathologist Direct Phone Line: [phone] signed by Claude Chacon MD on 08/08/2018 at 3:51 [id number] X 2 , [id number] bleedA. Random gastric biopsy; B. Cecum colon polypThe specimen is received in two containers of formalin both labeled with the patient's information. Part A labeled "random gastric biopsy" consists of five fragments of peguero tissue ranging from 0.1 to 0.5 cm, submitted entirely A1. Part B labeled "cecum colon polyp" consists of a peguero polyp measuring 0.6 cm. Resection margin is inked blue. The specimen is bisected, submitted entirely B1. CG/pl A-B. Performed.The interpretation of this case included the use of immunohistochemistry or special stains. Immunohistochemistry technical testing was performed at [facility]ology Laboratory where it was developed and its performance characteristics were determined. It has not been cleared or approved by the U.S. Food and Drug Administration. The FDA has determined that such clearance or approval is not necessary. The test is used for clinical purposes. It should not be regarded as investigational or for research. This laboratory is certified under the Clinical Laboratory Improvement Amendments of 1988 (CLIA-88) as qualified to perform high complexity clinical laboratory testing. POCT-GLUCOSE METER 2018-08-05 12:49:00 Test Item Value Reference Range Comments POC-GLUCOSE METER (BEAKER) (test 190 mg/dL 70-110 TESTED AT [facility] [address] [facility] yhvv=6403) [facility] [address] POCT-GLUCOSE [id number] 10:55:00 Test Item Value Reference Range Comments POC-GLUCOSE METER (BEAKER) 196 mg/dL 70-110 TESTED AT [address] (test ylmh=8495) [place] [address] U/S, ABDOMINAL, [id number] 08:36:00Abdomen limited area? Add comment if clarification is needed.->Right upper quadrantReason for exam:->eval for cirrhosisFINAL REPORT TECHNIQUE: Grayscale ultrasound of the right abdomen. INDICATION: Evaluate for cirrhosis. COMPARISON: None. FINDINGS: MIDLINE VASCULATURE: The visualized inferior vena cava is patent. Portal vein is patent. The maximum visualized aortic diameter is 2.5 cm. LIVER: The liver is diffusely hyperechoic with sparing around the gallbladder. The main portal vein measures 1.1 cm. BILIARY:Gallbladder: No gallstones or sludge. No gallbladder wall thickening, pericholecysticfluid, or distention. Negative sonographic Lopez sign.Common bile duct measures 0.5 cm, within normal limits. No intrahepatic biliary ductal dilatation. PANCREAS: Incompletely visualized due to overlying bowel gas. The partially visualized pancreatic neck and body are normal. PERITONEUM: No free fluid. RIGHT KIDNEY: Normal in size. No hydronephrosis. No sonographically evident solid mass lesion. IMPRESSION: Diffuse fatty infiltration of the liver. Signed: Hayden Sahu Verified Date/Time: 08/05/2018 08:36:42 Reading Location: [address] Ultrasound Reading Room 08 :36 [id number] 07:05:00 Test Item Value Reference Range Comments PHOSPHORUS (BEAKER) (test ohks=804) 2.1 mg/dL 2.3-4.7 [id number] 07:05:00 Test Item Value Reference Range Comments MAGNESIUM (BEAKER) (test zkfh=754) 2.2 mg/dL 1.6-2.6 BASIC METABOLIC [id number] 07:05:00 Test Item Value Reference Range Comments SODIUM (BEAKER) (test 138 meq/L 136-145 auuv=094) POTASSIUM (BEAKER) (test 4.5 meq/L 3.5-5.1 axdf=216) CHLORIDE (BEAKER) (test 111 meq/L 98-107 kuem=449) CO2 (BEAKER) (test 20 meq/L 22-29 slen=873) BLOOD UREA NITROGEN 8 mg/dL 7-21 (BEAKER) (test mmwr=381) CREATININE (BEAKER) (test 0.74 mg/dL 0.57-1.25 vshi=662) GLUCOSE RANDOM (BEAKER) 207 mg/dL 70-105 (test phal=781) CALCIUM (BEAKER) (test 8.8 mg/dL 8.4-10.2 oral=423) EGFR (BEAKER) (test 106 mL/min/1.73 sq m ESTIMATED GFR IS NOT stdz=9314) ACCURATE CREATININE CLEARANCE IN PREDICTING GLOMERULAR FILTRATION RATE. ESTIMATED GFR IS NOT APPLICABLE FOR DIALYSIS PATIENTS. HEPATIC FUNCTION [id number] 07:05:00 Test Item Value Reference Range Comments TOTAL PROTEIN (BEAKER) (test shen=034) 5.9 gm/dL 6.0-8.3 ALBUMIN (BEAKER) (test tnxz=0809) 3.5 g/dL 3.5-5.0 BILIRUBIN TOTAL (BEAKER) (test kiio=392) 0.5 mg/dL 0.2-1.2 BILIRUBIN DIRECT (BEAKER) (test ywqt=330) 0.2 mg/dL 0.1-0.5 ALKALINE PHOSPHATASE (BEAKER) (test yggi=977) 55 U/L 40-150 AST (SGOT) (BEAKER) (test dwdl=751) 18 U/L 5-34 ALT (SGPT) (BEAKER) (test narv=222) 17 U/L 6-55 TROPONIN [id number] 07:03:00 Test Item Value Reference Range Comments TROPONIN I (BEAKER) (test fbuc=535) < ng/mL 0.00-0.03 HEMOGLOBIN AND [id number] 06:11:00 Test Item Value Reference Range Comments HEMOGLOBIN (BEAKER) (test tufx=030) 10.1 GM/DL 13.7-17.5 HEMATOCRIT (BEAKER) (test qvvo=780) 31.4 % 40.1-51.0 CBC W/PLT COUNT & AUTO [id number] 06:11:00 Test Item Value Reference Range Comments WHITE BLOOD CELL COUNT (BEAKER) (test skof=238) 5.0 K/ L 3.5-10.5 RED BLOOD CELL COUNT (BEAKER) (test svof=207) 3.47 M/ L 4.63-6.08 HEMOGLOBIN (BEAKER) (test seau=311) 10.1 GM/DL 13.7-17.5 HEMATOCRIT (BEAKER) (test rylf=181) 31.4 % 40.1-51.0 MEAN CORPUSCULAR VOLUME (BEAKER) (test ewwf=139) 90.5 fL 79.0-92.2 MEAN CORPUSCULAR HEMOGLOBIN (BEAKER) (test 29.1 pg 25.7-32.2 nzge=540) MEAN CORPUSCULAR HEMOGLOBIN CONC (BEAKER) (test 32.2 GM/DL 32.3-36.5 gkpj=204) RED CELL DISTRIBUTION WIDTH (BEAKER) (test 14.2 % 11.6-14.4 izic=744) PLATELET COUNT (BEAKER) (test wbco=931) 317 K/CU MM 150-450 MEAN PLATELET VOLUME (BEAKER) (test kwvp=018) 8.5 fL 9.4-12.4 NUCLEATED RED BLOOD CELLS (BEAKER) (test 0 /100 WBC 0-0 luuv=735) NEUTROPHILS RELATIVE PERCENT (BEAKER) (test 67 % gxxy=086) LYMPHOCYTES RELATIVE PERCENT (BEAKER) (test 23 % cwpv=808) MONOCYTES RELATIVE PERCENT (BEAKER) (test 8 % sxkb=114) EOSINOPHILS RELATIVE PERCENT (BEAKER) (test 2 % yqfo=200) BASOPHILS RELATIVE PERCENT (BEAKER) (test 0 % hhwk=898) NEUTROPHILS ABSOLUTE COUNT (BEAKER) (test 3.33 K/ L 1.78-5.38 avwp=851) LYMPHOCYTES ABSOLUTE COUNT (BEAKER) (test 1.14 K/ L 1.32-3.57 yauc=762) MONOCYTES ABSOLUTE COUNT (BEAKER) (test 0.38 K/ L 0.30-0.82 mwjg=398) EOSINOPHILS ABSOLUTE COUNT (BEAKER) (test 0.10 K/ L 0.04-0.54 uvjm=253) BASOPHILS ABSOLUTE COUNT (BEAKER) (test 0.02 K/ L 0.01-0.08 jjsz=689) IMMATURE GRANULOCYTES-RELATIVE PERCENT (BEAKER) 0 % 0-1 (test cpwo=0552) POCT-GLUCOSE [id number] 20:44:00 Test Item Value Reference Range Comments POC-GLUCOSE METER (BEAKER) 149 mg/dL 70-110 TESTED AT [address] (test rhgd=1676) [place] [address] RAD, CHEST, 1 VIEW, NON [id number] 20:38:00Reason for exam:->SOBShould this be performed at the bedside?->YesFINAL REPORT History: Shortness of breath. Comparison: None. Findings: A single view of the chest is submitted. The cardiomediastinal contours are unremarkable. Retrocardiac opacity in the left lung may reflect atelectasis but pneumonitis should be excluded clinically. Thereis no pneumothorax, large pleural effusion , evidence of overt pulmonary edema or acute bony abnormality. Signed: Bubba Juarez MDReport Verified Date/Time: 08/04/2018 20:38:15 Reading Location: [address] Reading Room TROPONIN [id number] 20:02:00 Test Item Value Reference Range Comments TROPONIN I (BEAKER) (test tqjz=882) < ng/mL 0.00-0.03 POCT-GLUCOSE [id number] 19:55:00 Test Item Value Reference Range Comments POC-GLUCOSE METER (BEAKER) 99 mg/dL 70-110 TESTED AT [address] (test ftkg=1429) [place] [address] POCT-GLUCOSE [id number] 19:15:00 Test Item Value Reference Range Comments POC-GLUCOSE METER (BEAKER) 129 mg/dL 70-110 TESTED AT [facility] [address] (test vhbi=3164) [facility] [address] [id number] 18:38:00 Test Item Value Reference Range Comments MAGNESIUM (BEAKER) (test 2.2 mg/dL 1.6-2.6 Specimen slightly hemolyzed lbsm=706) BASIC METABOLIC [id number] 18:38:00 Test Item Value Reference Range Comments SODIUM (BEAKER) (test 139 meq/L 136-145 mzuq=151) POTASSIUM (BEAKER) (test 3.2 meq/L 3.5-5.1 Specimen slightly jddv=566) hemolyzed CHLORIDE (BEAKER) (test 108 meq/L 98-107 nyzb=179) CO2 (BEAKER) (test 24 meq/L 22-29 hwsl=910) BLOOD UREA NITROGEN 14 mg/dL 7-21 (BEAKER) (test wsuq=405) CREATININE (BEAKER) (test 0.79 mg/dL 0.57-1.25 Specimen slightly ooxf=382) hemolyzed GLUCOSE RANDOM (BEAKER) 94 mg/dL 70-105 (test ptea=677) CALCIUM (BEAKER) (test 8.8 mg/dL 8.4-10.2 fptd=347) EGFR (BEAKER) (test 98 mL/min/1.73 sq m ESTIMATED GFR IS NOT shhf=6402) ACCURATE CREATININE CLEARANCE IN PREDICTING GLOMERULAR FILTRATION RATE. ESTIMATED GFR IS NOT APPLICABLE FOR DIALYSIS PATIENTS. PROTHROMBIN [id number] 18:12:00 Test Item Value Reference Range Comments PROTIME (BEAKER) (test dtvc=010) 16.1 seconds 11.7-14.7 INR (BEAKER) (test dkob=020) 1.3 <=5.9 RECOMMENDED COUMADIN/WARFARIN INR THERAPY RANGESSTANDARD DOSE: 2.0 - 3.0 Includes: PROPHYLAXIS forvenous thrombosis, systemic embolization; TREATMENT for venous thrombosis and/or pulmonary embolus.HIGH RISK: Target INR is 2.5-3.5 for patients with mechanical heart valves.HEMOGLOBIN AND [id number] 18 :05:00 Test Item Value Reference Range Comments HEMOGLOBIN (BEAKER) (test majq=686) 9.1 GM/DL 13.7-17.5 HEMATOCRIT (BEAKER) (test hqth=666) 28.1 % 40.1-51.0 POCT-LACTIC ACID, [id number] 17:59:00 Test Item Value Reference Range Comments POC-LACTIC ACID, VENOUS 2.0 mmol/L 0.9-1.7 TESTED AT [place] [address] [facility] (test jcnv=9132) [facility] [address] POCT-GLUCOSE [id number] 17:06:00 Test Item Value Reference Range Comments POC-GLUCOSE METER (BEAKER) 85 mg/dL 70-110 TESTED AT [address] (test tbrh=3087) [facility] [address] CBC W/PLT COUNT & AUTO [id number] 16:06:00 Test Item Value Reference Range Comments WHITE BLOOD CELL COUNT (BEAKER) (test cfmi=709) 3.7 K/ L 3.5-10.5 RED BLOOD CELL COUNT (BEAKER) (test qavw=647) 2.81 M/ L 4.63-6.08 HEMOGLOBIN (BEAKER) (test fzcc=443) 8.2 GM/DL 13.7-17.5 HEMATOCRIT (BEAKER) (test dply=124) 25.5 % 40.1-51.0 MEAN CORPUSCULAR VOLUME (BEAKER) (test gtof=607) 90.7 fL 79.0-92.2 MEAN CORPUSCULAR HEMOGLOBIN (BEAKER) (test 29.2 pg 25.7-32.2 cvac=495) MEAN CORPUSCULAR HEMOGLOBIN CONC (BEAKER) (test 32.2 GM/DL 32.3-36.5 ncwu=559) RED CELL DISTRIBUTION WIDTH (BEAKER) (test 13.3 % 11.6-14.4 hrqg=593) PLATELET COUNT (BEAKER) (test qsnp=958) 263 K/CU MM 150-450 MEAN PLATELET VOLUME (BEAKER) (test rzyw=888) 8.1 fL 9.4-12.4 NUCLEATED RED BLOOD CELLS (BEAKER) (test 0 /100 WBC 0-0 eilb=552) NEUTROPHILS RELATIVE PERCENT (BEAKER) (test 53 % cgnw=027) LYMPHOCYTES RELATIVE PERCENT (BEAKER) (test 32 % duoh=506) MONOCYTES RELATIVE PERCENT (BEAKER) (test 11 % xlqt=812) EOSINOPHILS RELATIVE PERCENT (BEAKER) (test 3 % zsyq=848) BASOPHILS RELATIVE PERCENT (BEAKER) (test 1 % bfqh=588) NEUTROPHILS ABSOLUTE COUNT (BEAKER) (test 1.96 K/ L 1.78-5.38 jptn=147) LYMPHOCYTES ABSOLUTE COUNT (BEAKER) (test 1.20 K/ L 1.32-3.57 bzmv=431) MONOCYTES ABSOLUTE COUNT (BEAKER) (test 0.41 K/ L 0.30-0.82 yfbi=137) EOSINOPHILS ABSOLUTE COUNT (BEAKER) (test 0.12 K/ L 0.04-0.54 phnx=146) BASOPHILS ABSOLUTE COUNT (BEAKER) (test 0.03 K/ L 0.01-0.08 jyzv=366) IMMATURE GRANULOCYTES-RELATIVE PERCENT (BEAKER) 0 % 0-1 (test vxoz=9633) POCT-GLUCOSE [id number] 11:55:00 Test Item Value Reference Range Comments POC-GLUCOSE METER (BEAKER) 350 mg/dL 70-110 Notified MONIKA BELL/TESTED AT [facility] (test rfxv=6760) [facility] [address] [facility] [address] POCT-GLUCOSE [id number] 07:38:00 Test Item Value Reference Range Comments POC-GLUCOSE METER (BEAKER) 221 mg/dL 70-110 TESTED AT [address] (test iqti=8974) [place] [id number] 07:01:00 Test Item Value Reference Range Comments MAGNESIUM (BEAKER) (test 2.2 mg/dL 1.6-2.6 Specimen slightly hemolyzed opmk=475) [id number] 07:01:00 Test Item Value Reference Range Comments PHOSPHORUS (BEAKER) (test 3.4 mg/dL 2.3-4.7 Specimen slightly hemolyzed cwad=774) BASIC METABOLIC [id number] 07:01:00 Test Item Value Reference Range Comments SODIUM (BEAKER) (test 138 meq/L 136-145 pnhj=229) POTASSIUM (BEAKER) (test 4.0 meq/L 3.5-5.1 Specimen slightly zyfl=741) hemolyzed CHLORIDE (BEAKER) (test 106 meq/L 98-107 foeg=448) CO2 (BEAKER) (test 24 meq/L 22-29 okjj=339) BLOOD UREA NITROGEN 20 mg/dL 7-21 (BEAKER) (test nbhw=775) CREATININE (BEAKER) (test 0.83 mg/dL 0.57-1.25 Specimen slightly nxxp=932) hemolyzed GLUCOSE RANDOM (BEAKER) 197 mg/dL 70-105 (test whlg=471) CALCIUM (BEAKER) (test 8.6 mg/dL 8.4-10.2 twsj=447) EGFR (BEAKER) (test 93 mL/min/1.73 sq m ESTIMATED GFR IS NOT leus=9902) ACCURATE CREATININE CLEARANCE IN PREDICTING GLOMERULAR FILTRATION RATE. ESTIMATED GFR IS NOT APPLICABLE FOR DIALYSIS PATIENTS. HEPATIC FUNCTION [id number] 07:01:00 Test Item Value Reference Range Comments TOTAL PROTEIN (BEAKER) (test 6.3 gm/dL 6.0-8.3 Specimen slightly hemolyzed molm=953) ALBUMIN (BEAKER) (test 3.7 g/dL 3.5-5.0 Specimen slightly hemolyzed ehfx=7963) BILIRUBIN TOTAL (BEAKER) (test 0.5 mg/dL 0.2-1.2 Specimen slightly hemolyzed qxby=088) BILIRUBIN DIRECT (BEAKER) (test 0.2 mg/dL 0.1-0.5 Specimen slightly hemolyzed hegd=015) ALKALINE PHOSPHATASE (BEAKER) 61 U/L 40-150 (test pziy=989) AST (SGOT) (BEAKER) (test 23 U/L 5-34 Specimen slightly hemolyzed xdns=881) ALT (SGPT) (BEAKER) (test 21 U/L 6-55 Specimen slightly hemolyzed wzxq=381) HEMOGLOBIN AND [id number] 06:32:00 Test Item Value Reference Range Comments HEMOGLOBIN (BEAKER) (test gbyd=803) 9.2 GM/DL 13.7-17.5 HEMATOCRIT (BEAKER) (test owxh=571) 28.1 % 40.1-51.0 [id number] 02:43:00 Test Item Value Reference Range Comments FERRITIN (BEAKER) (test dlmd=634) 164 ng/mL 5-275 VITAMIN B12 AND [id number] 02:43:00 Test Item Value Reference Range Comments VITAMIN B12 (BEAKER) (test mawh=153) 659 pg/mL 213-816 FOLATE (BEAKER) (test yctr=774) 11.1 ng/mL >=7.0 IRON, TIBC, % SAT. (WITHOUT FERRITIN)2018-08-04 02:08:00 Test Item Value Reference Range Comments IRON (BEAKER) (test turu=525) 56 ug/dL 40-160 TOTAL IRON BINDING CAPACITY (BEAKER) (test 319 ug/dL 250-450 tuxm=164) IRON % SATURATION (2) (BEAKER) (test kuht=8559) 18 % 20-55 COMPREHENSIVE METABOLIC [id number] 00:56:00 Test Item Value Reference Range Comments TOTAL PROTEIN (BEAKER) 6.7 gm/dL 6.0-8.3 (test tgxd=773) ALBUMIN (BEAKER) (test 4.1 g/dL 3.5-5.0 tiew=2976) ALKALINE PHOSPHATASE 67 U/L 40-150 (BEAKER) (test euys=070) BILIRUBIN TOTAL (BEAKER) 0.6 mg/dL 0.2-1.2 (test eize=446) SODIUM (BEAKER) (test 138 meq/L 136-145 kujv=707) POTASSIUM (BEAKER) (test 3.3 meq/L 3.5-5.1 rlqj=736) CHLORIDE (BEAKER) (test 104 meq/L 98-107 cgit=557) CO2 (BEAKER) (test 25 meq/L 22-29 qlum=596) BLOOD UREA NITROGEN 23 mg/dL 7-21 (BEAKER) (test dduj=436) CREATININE (BEAKER) (test 0.92 mg/dL 0.57-1.25 nyvg=629) GLUCOSE RANDOM (BEAKER) 196 mg/dL 70-105 (test hunt=784) CALCIUM (BEAKER) (test 8.8 mg/dL 8.4-10.2 mnxq=906) AST (SGOT) (BEAKER) (test 19 U/L 5-34 xrjh=893) ALT (SGPT) (BEAKER) (test 23 U/L 6-55 ucqy=407) EGFR (BEAKER) (test 82 mL/min/1.73 sq m ESTIMATED GFR IS NOT esry=5773) ACCURATE CREATININE CLEARANCE IN PREDICTING GLOMERULAR FILTRATION RATE. ESTIMATED GFR IS NOT APPLICABLE FOR DIALYSIS PATIENTS. PROTHROMBIN [id number] 00:50:00 Test Item Value Reference Range Comments PROTIME (BEAKER) (test uxkh=879) 15.6 seconds 11.7-14.7 INR (BEAKER) (test jkuv=382) 1.2 <=5.9 RECOMMENDED COUMADIN/WARFARIN INR THERAPY RANGESSTANDARD DOSE: 2.0 - 3.0 Includes: PROPHYLAXIS forvenous thrombosis, systemic embolization; TREATMENT for venous thrombosis and/or pulmonary embolus.HIGH RISK: Target INR is 2.5-3.5 for patients with mechanical heart valves.CBC W/PLT COUNT & AUTO [id number] 00:35:00 Test Item Value Reference Range Comments WHITE BLOOD CELL COUNT (BEAKER) (test pokq=323) 6.1 K/ L 3.5-10.5 RED BLOOD CELL COUNT (BEAKER) (test rnev=685) 3.24 M/ L 4.63-6.08 HEMOGLOBIN (BEAKER) (test ronr=319) 9.3 GM/DL 13.7-17.5 HEMATOCRIT (BEAKER) (test jzbn=242) 29.6 % 40.1-51.0 MEAN CORPUSCULAR VOLUME (BEAKER) (test opiq=582) 91.4 fL 79.0-92.2 MEAN CORPUSCULAR HEMOGLOBIN (BEAKER) (test 28.7 pg 25.7-32.2 csgo=256) MEAN CORPUSCULAR HEMOGLOBIN CONC (BEAKER) (test 31.4 GM/DL 32.3-36.5 cenm=155) RED CELL DISTRIBUTION WIDTH (BEAKER) (test 13.6 % 11.6-14.4 xicq=535) PLATELET COUNT (BEAKER) (test eljm=112) 313 K/CU MM 150-450 MEAN PLATELET VOLUME (BEAKER) (test omrg=521) 8.0 fL 9.4-12.4 NUCLEATED RED BLOOD CELLS (BEAKER) (test 0 /100 WBC 0-0 dkgc=352) NEUTROPHILS RELATIVE PERCENT (BEAKER) (test 69 % rlwi=880) LYMPHOCYTES RELATIVE PERCENT (BEAKER) (test 21 % zypk=215) MONOCYTES RELATIVE PERCENT (BEAKER) (test 7 % anpm=742) EOSINOPHILS RELATIVE PERCENT (BEAKER) (test 3 % eywv=648) BASOPHILS RELATIVE PERCENT (BEAKER) (test 1 % sqan=477) NEUTROPHILS ABSOLUTE COUNT (BEAKER) (test 4.21 K/ L 1.78-5.38 pwca=276) LYMPHOCYTES ABSOLUTE COUNT (BEAKER) (test 1.26 K/ L 1.32-3.57 bfmx=525) MONOCYTES ABSOLUTE COUNT (BEAKER) (test 0.42 K/ L 0.30-0.82 tapp=536) EOSINOPHILS ABSOLUTE COUNT (BEAKER) (test 0.15 K/ L 0.04-0.54 qqam=218) BASOPHILS ABSOLUTE COUNT (BEAKER) (test 0.03 K/ L 0.01-0.08 xsyg=310) IMMATURE GRANULOCYTES-RELATIVE PERCENT (BEAKER) 0 % 0-1 (test fhsd=2287) POCT-GLUCOSE [id number] 23:55:00 Test Item Value Reference Range Comments POC-GLUCOSE METER (BEAKER) 245 mg/dL 70-110 TESTED AT [facility] [address] [facility] (test urfc=9002) [facility] [address]
--- OUTSIDE RECORDS SUMMARY | 2019-02-26 08:10 | XMS REPORT | Clinical Summary ---
:1950 Author Organization [facility] Address [address] [place] [address] Care Team Providers Name Role Phone Justice Moulton Primary Care Provider Allergies No Known Allergies Medications Medication Sig Dispensed Refills Start Date End Date Status VICTOZA 2-YAQUELIN 0.6 Inject 1.2 mg 1 07/05/2018 Active mg/0.1 mL (18 subcutaneously mg/3 mL) PnIj daily. lisinopril Take 20 mg by mouth 1 06/20/2018 Active (PRINIVIL,ZESTRIL every 12 (twelve) ) 20 MG tablet hours. metFORMIN Take 500 mg by 0 Active (GLUCOPHAGE) 500 mouth 2 (two) times MG tablet daily with breakfast and dinner. simvastatin Take 40 mg by mouth 0 Active (ZOCOR) 40 MG nightly. tablet omeprazole Take 20 mg by mouth 3 07/29/2018 08/05/20 Discontinued (PRILOSEC) 20 MG every morning. 18 capsule diclofenac Take 75 mg by mouth 0 08/05/20 Discontinued (VOLTAREN) 75 MG 2 (two) times 18 EC tablet daily. pantoprazole Take 1 tablet (40 60 tablet 2 08/05/2018 09/04/20 (PROTONIX) 40 MG mg total) by mouth 18 tablet 2 (two) times daily for 30 days. Active Problems Problem Noted Date Gastric ulcer 08/05/2018 Sigmoid diverticulosis 08/05/2018 Type 2 diabetes mellitus without complication, without long-term current 08/04 use of insulin Resolved Problems Problem Noted Date Resolved Date Lower GI bleed 08/04/2018 08/05/2018 Encounters Date Type Specialty Care Team Description 08/05/2018 Anesthesia Event Gastroenterology Ken Reynoso MD 08/05/2018 Surgery Gastroenterology Tatiana, COLONOSCOPY,POLYPECTO MD HERIBERTO Smith 08/04/2018 Orders Only General Internal Medicine 08/04/2018 Travel 08/03/2018 Hospital Cardiology [facility], Lower GI bleed (Primary Dx); - Encounter MD Lazaro Type 2 diabetes mellitus without complication, without long-term current use of insulin (HCC); 08/05/2018 Sakina Schofield Gastric ulcer, unspecified chronicity, unspecified whether gastric ulcer hemorrhage or perforation present; Marisol Sigmoid diverticulosis MD Christina Cramer, Alma Rosa Veronica MD after 02/25/2018 Social History Tobacco Use Types Packs/Day Years Used Date Never Smoker Smokeless Tobacco: Never Used Alcohol Use Drinks/Week oz/Week Comments Yes Patient stated he quit drinking a week ago Alcohol Habits Answer Date Recorded How often do you have a drink containing 4 or more times a week 08/04/2018 alcohol? How many drinks containing alcohol do you have 5 or 6 08/04/2018 on a typical day when you are drinking? How often do you have six or more drinks on one Daily or almost daily 2017 occasion? Sex Assigned at Date Recorded Not on file Job Start Date Occupation Industry Not on file Not on file Not on file Travel History Travel Start Travel End No recent travel history available. Last Filed Vital Signs Vital Sign Reading Time Taken Blood Pressure 176/74 08/05/2018 2:32 PM RECORDS MANAGEMENT ASSOCIATE Pulse 104 08/05/2018 2:32 PM RECORDS MANAGEMENT ASSOCIATE Temperature 36.2 C (97.1 F) 08/05/2018 2:32 PM RECORDS MANAGEMENT ASSOCIATE Respiratory Rate 16 08/05/2018 2:32 PM RECORDS MANAGEMENT ASSOCIATE Oxygen Saturation 97% 08/05/2018 2:32 PM RECORDS MANAGEMENT ASSOCIATE Inhaled Oxygen Concentration - - Weight 84.1 kg (185 lb 8 oz) 08/05/2018 5:49 AM RECORDS MANAGEMENT ASSOCIATE Height 175.3 cm (5' 9") 08/03/2018 11:50 PM RECORDS MANAGEMENT ASSOCIATE Body Mass Index 27.39 08/05/2018 5:49 AM RECORDS MANAGEMENT ASSOCIATE Plan of Treatment Not on file Procedures Procedure Name Priority Date/Time Associated Diagnosis Comments REPORT OF PROCEDURE 08/09/2018 10:06 - ENDOSCOPY SCAN AM RECORDS MANAGEMENT ASSOCIATE RHYTHM STRIP - SCAN 08/09/2018 10:05 AM RECORDS MANAGEMENT ASSOCIATE TRANSFUSION SERVICE 08/06/2018 6:01 REPORT - SCAN PM RECORDS MANAGEMENT ASSOCIATE PREPARE Routine 08/05/2018 11:54 Results for this LEUKO-REDUCED RBC PM RECORDS MANAGEMENT ASSOCIATE procedure are in the results section. TRANSFUSION SERVICE 08/05/2018 6:00 REPORT - SCAN PM RECORDS MANAGEMENT ASSOCIATE POCT-GLUCOSE METER Routine 08/05/2018 12:48 Results for this PM RECORDS MANAGEMENT ASSOCIATE procedure are in the results section. REPORT OF PROCEDURE 08/05/2018 11:18 - ENDOSCOPY URL AM RECORDS MANAGEMENT ASSOCIATE POCT-GLUCOSE METER Routine 08/05/2018 10:53 Results for this AM RECORDS MANAGEMENT ASSOCIATE procedure are in the results section. REPORT OF PROCEDURE 08/05/2018 10:26 - ENDOSCOPY URL AM RECORDS MANAGEMENT ASSOCIATE TISSUE EXAM AP Routine 08/05/2018 10:09 Results for this AM RECORDS MANAGEMENT ASSOCIATE procedure are in the results section. UPPER 08/05/2018 9:33 Gastrointestinal ENDOSCOPY,BIOPSY AM RECORDS MANAGEMENT ASSOCIATE hemorrhage, unspecified gastrointestinal hemorrhage type COLONOSCOPY,POLYPEC 08/05/2018 9:33 Gastrointestinal URBAN AM RECORDS MANAGEMENT ASSOCIATE hemorrhage, unspecified gastrointestinal hemorrhage type US ABDOMEN LIMITED Routine 08/05/2018 8:02 Results for this AM RECORDS MANAGEMENT ASSOCIATE procedure are in the results section. CBC W/PLT COUNT & Routine 08/05/2018 5:10 Results for this AUTO DIFFERENTIAL AM RECORDS MANAGEMENT ASSOCIATE procedure are in the results section. CBC W/PLT COUNT & Routine 08/05/2018 5:10 Results for this AUTO DIFFERENTIAL AM RECORDS MANAGEMENT ASSOCIATE procedure are in the results section. PHOSPHORUS Routine 08/05/2018 5:10 Results for this AM RECORDS MANAGEMENT ASSOCIATE procedure are in the results section. HEPATIC FUNCTION Routine 08/05/2018 5:10 Results for this PANEL AM RECORDS MANAGEMENT ASSOCIATE procedure are in the results section. HEMOGLOBIN AND Routine 08/05/2018 5:10 Results for this HEMATOCRIT AM RECORDS MANAGEMENT ASSOCIATE procedure are in the results section. TROPONIN I Routine 08/05/2018 5:10 Results for this AM RECORDS MANAGEMENT ASSOCIATE procedure are in the results section. MAGNESIUM Routine 08/05/2018 5:10 Results for this AM RECORDS MANAGEMENT ASSOCIATE procedure are in the results section. BASIC METABOLIC Routine 08/05/2018 5:10 Results for this PANEL (7) AM RECORDS MANAGEMENT ASSOCIATE procedure are in the results section. TRANSFUSE Routine 08/05/2018 12:12 LEUKO-REDUCED RED AM RECORDS MANAGEMENT ASSOCIATE BLOOD CELLS POCT-GLUCOSE METER Routine 08/04/2018 8:43 Results for this PM RECORDS MANAGEMENT ASSOCIATE procedure are in the results section. XR CHEST 1 VIEW Routine 08/04/2018 8:13 Results for this PORTABLE/BEDSIDE PM RECORDS MANAGEMENT ASSOCIATE procedure are in the results section. POCT-GLUCOSE METER Routine 08/04/2018 7:14 Results for this PM RECORDS MANAGEMENT ASSOCIATE procedure are in the results section. ECG 12-LEAD STAT 08/04/2018 5:58 Results for this PM RECORDS MANAGEMENT ASSOCIATE procedure are in the results section. PROTHROMBIN Routine 08/04/2018 5:58 Results for this TIME/INR PM RECORDS MANAGEMENT ASSOCIATE procedure are in the results section. HEMOGLOBIN AND Routine 08/04/2018 5:58 Results for this HEMATOCRIT PM RECORDS MANAGEMENT ASSOCIATE procedure are in the results section. TROPONIN I STAT 08/04/2018 5:58 Results for this PM RECORDS MANAGEMENT ASSOCIATE procedure are in the results section. MAGNESIUM STAT 08/04/2018 5:58 Results for this PM RECORDS MANAGEMENT ASSOCIATE procedure are in the results section. BASIC METABOLIC STAT 08/04/2018 5:58 Results for this PANEL (7) PM RECORDS MANAGEMENT ASSOCIATE procedure are in the results section. POCT-LACTIC ACID, Routine 08/04/2018 5:53 Results for this VENOUS PM RECORDS MANAGEMENT ASSOCIATE procedure are in the results section. ECG 12-LEAD Routine 08/04/2018 5:39 PM RECORDS MANAGEMENT ASSOCIATE Procedure Note - Interface, External Ris In - 08/04/2018 11:01 PM RECORDS MANAGEMENT ASSOCIATE Ventricular Rate 63 BPM Atrial Rate 48 BPM QRS Duration 98 ms Q-T Interval 398 ms QTC Calculation(Bazett) 407 ms R Vanderpool 12 degrees T Vanderpool 62 degrees Poor data quality, interpretation may be adversely affected Junctional rhythm with occasional Premature ventricular complexes Nonspecific ST and T wave abnormality Abnormal ECG No previous ECGs available POCT-GLUCOSE METER Routine 08/04/2018 5:30 PM RECORDS MANAGEMENT ASSOCIATE POCT-GLUCOSE METER Routine 08/04/2018 5:03 PM RECORDS MANAGEMENT ASSOCIATE CBC W/PLT COUNT & AUTO Routine 08/04/2018 3:52 PM RECORDS MANAGEMENT ASSOCIATE Results for this DIFFERENTIAL procedure are in the results section. CBC W/PLT COUNT & AUTO Routine 08/04/2018 3:52 PM RECORDS MANAGEMENT ASSOCIATE Results for this DIFFERENTIAL procedure are in the results section. POCT-GLUCOSE METER Routine 08/04/2018 11:45 AM RECORDS MANAGEMENT ASSOCIATE POCT-GLUCOSE METER Routine 08/04/2018 7:34 AM RECORDS MANAGEMENT ASSOCIATE HEMOGLOBIN AND HEMATOCRIT STAT 08/04/2018 5:49 AM RECORDS MANAGEMENT ASSOCIATE MAGNESIUM Routine 08/04/2018 5:49 AM RECORDS MANAGEMENT ASSOCIATE PHOSPHORUS Routine 08/04/2018 5:49 AM RECORDS MANAGEMENT ASSOCIATE HEPATIC FUNCTION PANEL Routine 08/04/2018 5:49 AM RECORDS MANAGEMENT ASSOCIATE BASIC METABOLIC PANEL (7) Routine 08/04/2018 5:49 AM RECORDS MANAGEMENT ASSOCIATE TYPE AND SCREEN, AUTOMATED Routine 08/04/2018 12:48 AM RECORDS MANAGEMENT ASSOCIATE CBC W/PLT COUNT & AUTO Routine 08/04/2018 12:21 AM RECORDS MANAGEMENT ASSOCIATE Results for this DIFFERENTIAL procedure are in the results section. PROTHROMBIN TIME/INR Routine 08/04/2018 12:21 AM RECORDS MANAGEMENT ASSOCIATE VITAMIN B12 AND FOLATE Routine 08/04/2018 12:21 AM RECORDS MANAGEMENT ASSOCIATE COMPREHENSIVE METABOLIC Routine 08/04/2018 12:21 AM RECORDS MANAGEMENT ASSOCIATE Results for this PANEL procedure are in the results section. CBC W/PLT COUNT & AUTO Routine 08/04/2018 12:21 AM RECORDS MANAGEMENT ASSOCIATE Results for this DIFFERENTIAL procedure are in the results section. FERRITIN Routine 08/04/2018 12:21 AM RECORDS MANAGEMENT ASSOCIATE IRON, TIBC, % SAT. (WITHOUT Routine 08/04/2018 12:21 AM RECORDS MANAGEMENT ASSOCIATE Results for this FERRITIN) procedure are in the results section. POCT-GLUCOSE METER Routine 08/03/2018 11:53 PM RECORDS MANAGEMENT ASSOCIATE after 02/25/2018 Results EKG-SCANNED (08/09/2018 10:06 AM RECORDS MANAGEMENT ASSOCIATE) Narrative Performed At RHYTHM STRIP - SCAN (08/09/2018 10:05 AM RECORDS MANAGEMENT ASSOCIATE) Narrative Performed At TRANSFUSION SERVICE REPORT - SCAN (08/06/2018 6:01 PM RECORDS MANAGEMENT ASSOCIATE)Only the most recent of2 resultswithin the time period is included. Narrative Performed At Prepare Leuko-Red RBC (08/05/2018 11:54 PM RECORDS MANAGEMENT ASSOCIATE) CROSSMATCH COMPATIBLE SAFETRACE TX Unit ABO O Pos SAFETRACE TX UNIT NUMBER [id number] [facility]AFET[employer]ACE TX Status TRANSFUSED [facility]AFET[employer]ACE TX Blood Bank Product RED BLOOD CELLS [employer]AFET[employer]ACE [place] PRODUCT CODE [id number] [employer] [place] Specimen Other Performing Organization Address City/State/Zipcode Phone Number [employer] [place] POC-Glucose meter (08/05/2018 12:48 PM RECORDS MANAGEMENT ASSOCIATE)Only the most recent of9 resultswithin the time period is included. POC-Glucose Meter 190 (H)Comment: TESTED AT 70 - 110 mg/dL [facility] [address] [facility] [id number] Specimen Blood Performing Organization Address City/State/Zipcode Phone Number [place] [phone] [place], [place] [phone] CENTER REPORT OF PROCEDURE - ENDOSCOPY URL (08/05/2018 11:18 AM RECORDS MANAGEMENT ASSOCIATE) Narrative Performed At REPORT OF PROCEDURE - ENDOSCOPY URL (08/05/2018 10:26 AM RECORDS MANAGEMENT ASSOCIATE) Narrative Performed At Tissue Exam (08/05/2018 10:09 AM RECORDS MANAGEMENT ASSOCIATE) Case Report Surgical Pathology Report Case: [id number] [facility] Authorizing Provider:Paulina Simpson MD Collected: 08/05/2018 1009 [facility] Ordering Location: [address] Received: 08/05/2018 1409 Service Pathologist: Claude Chacon MD Specimens: A) - Biopsy, Gastric, Random B) - Polyp, Colon - Cecum, Polyp DIAGNOSIS A. STOMACH, RANDOM, BIOPSY: [facility] - CHRONIC INACTIVE GASTRITIS [facility] - NEGATIVE FOR H. PYLORI BY WARTHIN STARRY STAIN B. COLON, CECUM, POLYPECTOMY: - TUBULAR ADENOMA Signing Pathologist Direct Phone Line: [phone] CPT Code(s) 28612 X 2 , 29937 [facility] CLINICAL HISTORY GI bleed [facility] SPECIMEN SOURCE A. Random gastric biopsy; B. [facility] Cecum colon polyp [facility] GROSS DESCRIPTION The specimen is received in two containers of formalin both labeled with the patient's information. [facility] Part A labeled "random gastric biopsy" consists of five fragments of peguero tissue ranging from 0.1 to 0.5 cm, submitted entirely A1. Part B labeled "cecum colon polyp" consists of a peguero polyp measuring 0.6 cm. Resection margin is inked blue. The specimen is bisected, submitted entirely B1. CG/pl MICROSCOPIC DESCRIPTION A-B. Performed. [facility] SPECIAL STUDIES The interpretation of this case included the use of immunohistochemistry or special stains. [facility] Immunohistochemistry technical testing was performed at [facility], Pathology Laboratory where it was developed and its performance characteristics were determined. It has not be en cleared or approved by the U.S. Food and Drug Administration. The FDA has determined that such clearance or approval is not necessary. The test is used for clinical purposes. It should not be regarde d as investigational or for research. This laboratory is certified under the Clinical Laboratory Improvement Amendments of 1988 (CLIA-88) as qualified to perform high complexity clinical laboratory testing. Specimen Tissue Tissue - Polyp, Colon - Cecum Performing Organization Address City/State/Zipcode Phone Number [facility] [address] [place] [address] [phone] CENTER abdomen limited (08/05/2018 8:02 AM RECORDS MANAGEMENT ASSOCIATE) Specimen Narrative Performed At FINAL REPORT [employer] TECHNIQUE: Grayscale ultrasound of the right abdomen. INDICATION: Evaluate for cirrhosis. COMPARISON: None. FINDINGS: MIDLINE VASCULATURE: The visualized inferior vena cava is patent. Portal vein is patent. The maximum visualized aortic diameter is 2.5 cm. LIVER: The liver is diffusely hyperechoic with sparing around the gallbladder. The main portal vein measures 1.1 cm. BILIARY: Gallbladder: No gallstones or sludge. No gallbladder wall thickening, pericholecystic fluid, or distention. Negative sonographic Lopez sign. Common bile duct measures 0.5 cm, within normal limits. No intrahepatic biliary ductal dilatation. PANCREAS: Incompletely visualized due to overlying bowel gas. The partially visualized pancreatic neck and body are normal. PERITONEUM: No free fluid. RIGHT KIDNEY: Normal in size. No hydronephrosis. No sonographically evident solid mass lesion. IMPRESSION: Diffuse fatty infiltration of the liver. Signed: Hayden Sahu MD Report Verified Date/Time:08/05/2018 08:36:42 Reading Location: [address] Ultrasound Reading Room Procedure Note Interface, External Ris In - 08/05/2018 8:38 AM RECORDS MANAGEMENT ASSOCIATE FINAL REPORT TECHNIQUE: Grayscale ultrasound of the right abdomen. INDICATION: Evaluate for cirrhosis. COMPARISON: None. FINDINGS: MIDLINE VASCULATURE: The visualized inferior vena cava is patent. Portal vein is patent. The maximum visualized aortic diameter is 2.5 cm. LIVER: The liver is diffusely hyperechoic with sparing around the gallbladder. The main portal vein measures 1.1 cm. BILIARY: Gallbladder: No gallstones or sludge. No gallbladder wall thickening, pericholecystic fluid, or distention. Negative sonographic Lopez sign. Common bile duct measures 0.5 cm, within normal limits. No intrahepatic biliary ductal dilatation. PANCREAS: Incompletely visualized due to overlying bowel gas. The partially visualized pancreatic neck and body are normal. PERITONEUM: No free fluid. RIGHT KIDNEY: Normal in size. No hydronephrosis. No sonographically evident solid mass lesion. IMPRESSION: Diffuse fatty infiltration of the liver. Signed: Hayden Sahu MD Report Verified Date/Time: 08/05/2018 08:36:42 Reading Location: [address] Ultrasound Reading Room Performing Organization Address City/State/Zipcode Phone Number [employer] CBC with platelet count + automated diff (08/05/2018 5:10 AM RECORDS MANAGEMENT ASSOCIATE)Only the most recent of3 resultswithin the time period is included. WBC 5.0 3.5 - 10.5 K/L [facility] RBC 3.47 (L) 4.63 - 6.08 M/L [facility] Hemoglobin 10.1 (L) 13.7 - 17.5 GM/DL [facility] Hematocrit 31.4 (L) 40.1 - 51.0 % [facility] MCV 90.5 79.0 - 92.2 fL [facility] MCH 29.1 25.7 - 32.2 pg [facility] MCHC 32.2 (L) 32.3 - 36.5 GM/DL [facility] RDW 14.2 11.6 - 14.4 % [facility] Platelets 317 150 - 450 K/CU MM [facility] MPV 8.5 (L) 9.4 - 12.4 fL [facility] nRBC 0 0 - 0 /100 WBC [facility] % Neutros 67 % [facility] % Lymphs 23 % [facility] % Monos 8 % [facility] % Eos 2 % [facility] % Baso 0 % [facility] # Neutros 3.33 1.78 - 5.38 K/L [facility] # Lymphs 1.14 (L) 1.32 - 3.57 K/L [facility] # Monos 0.38 0.30 - 0.82 K/L [facility] # Eos 0.10 0.04 - 0.54 K/L [facility] # Baso 0.02 0.01 - 0.08 K/L [facility] Immature Granulocytes-Relative 0 0 - 1 % [facility] Specimen Blood Performing Organization Address City/[facility]/Zipcode Phone Number [address] [address] CENTER Hemoglobin and hematocrit (08/05/2018 5:10 AM RECORDS MANAGEMENT ASSOCIATE)Only the most recent of3 resultswithin the time period is included. Hemoglobin 10.1 (L) 13.7 - 17.5 GM/DL [facility] Hematocrit 31.4 (L) 40.1 - 51.0 % [facility] Specimen Blood Performing Organization Address City/[facility]/Zipcode Phone Number [address] [address] [phone] CENTER Troponin I (08/05/2018 5:10 AM RECORDS MANAGEMENT ASSOCIATE)Only the most recent of2 resultswithin the time period is included. Troponin I <0.01 0.00 - 0.03 ng/mL [facility] Specimen Blood Performing Organization Address City/[facility]/Zipcode Phone Number [address] [address] CENTER Phosphorus (08/05/2018 5:10 AM RECORDS MANAGEMENT ASSOCIATE)Only the most recent of2 resultswithin the time period is included. Phosphorus 2.1 (L) 2.3 - 4.7 mg/dL [facility] Specimen Blood Performing Organization Address [facility] Phone Number [address] [address] CENTER Magnesium (08/05/2018 5:10 AM RECORDS MANAGEMENT ASSOCIATE)Only the most recent of3 resultswithin the time period is included. Magnesium 2.2 1.6 - 2.6 mg/dL [facility] Specimen Blood Performing Organization Address [facility] Phone Number [address] [address] [place] Hepatic function panel (08/05/2018 5:10 AM RECORDS MANAGEMENT ASSOCIATE)Only the most recent of2 resultswithin the time period is included. Protein, Total 5.9 (L) 6.0 - 8.3 gm/dL [facility] Albumin 3.5 3.5 - 5.0 g/dL [facility] Total Bilirubin 0.5 0.2 - 1.2 mg/dL [facility] Bilirubin, Direct 0.2 0.1 - 0.5 mg/dL [facility] Alkaline Phosphatase 55 40 - 150 U/L [facility] AST 18 5 - 34 U/L [facility] ALT 17 6 - 55 U/L [facility] Specimen Blood Performing Organization Address City/[facility]/Zipcode Phone Number [facility] [address] [place] [address] [phone] CENTER Basic Metabolic Panel (08/05/2018 5:10 AM RECORDS MANAGEMENT ASSOCIATE)Only the most recent of3 resultswithin the time period is included. Sodium 138 136 - 145 meq/L [facility] Potassium 4.5 3.5 - 5.1 meq/L [facility] Chloride 111 (H) 98 - 107 meq/L [facility] CO2 20 (L) 22 - 29 meq/L [facility] BUN 8 7 - 21 mg/dL [facility] Creatinine 0.74 0.57 - 1.25 mg/dL [facility] Glucose 207 (H) 70 - 105 mg/dL [facility] Calcium 8.8 8.4 - 10.2 mg/dL [facility] EGFR 106Comment: ESTIMATED GFR IS mL/min/1.73 sq m [facility] NOT ACCURATE CREATININE [facility] CENTER CLEARANCE IN PREDICTING GLOMERULAR FILTRATION RATE. ESTIMATED GFR IS NOT APPLICABLE FOR DIALYSIS PATIENTS. Specimen Blood Performing Organization Address [facility]/Zipcode Phone Number [facility] [address] [place] [address] CENTER Transfuse Leuko-Red RBC (08/05/2018 12:12 AM RECORDS MANAGEMENT ASSOCIATE)Only the most recent of2 resultswithin the time period is included.XR chest 1 view portable / bedside ( 8:13 PM RECORDS MANAGEMENT ASSOCIATE) Specimen Narrative Performed At FINAL REPORT [facility] History: Shortness of breath. Comparison: None. Findings: A single view of the chest is submitted. The cardiomediastinal contours are unremarkable. Retrocardiac opacity in the left lung may reflect atelectasis but pneumonitis should be excluded clinically. There is no pneumothorax, large pleural effusion, evidence of overt pulmonary edema or acute bony abnormality. Signed: Fede Juarez MD Report Verified Date/Time:08/04/2018 20:38:15 Reading Location: [address] Reading Room Procedure Note Interface, External Ris In - 08/04/2018 8:40 PM RECORDS MANAGEMENT ASSOCIATE FINAL REPORT History: Shortness of breath. Comparison: None. Findings: A single view of the chest is submitted. The cardiomediastinal contours are unremarkable. Retrocardiac opacity in the left lung may reflect atelectasis but pneumonitis should be excluded clinically. There is no pneumothorax, large pleural effusion, evidence of overt pulmonary edema or acute bony abnormality. Signed: Fede Juarez MD Report Verified Date/Time: 08/04/2018 20:38:15 Reading Location: [address] Reading Room Performing Organization Address City/State/Zipcode Phone Number GE RIS ECG 12 lead (08/04/2018 5:58 PM RECORDS MANAGEMENT ASSOCIATE) Specimen Narrative Performed At Ventricular Rate 56 BPM GE MUSE Atrial Rate 56 BPM P-R Interval 178 ms QRS Duration 100 ms Q-T Interval 472 ms QTC Calculation(Bazett) 455 ms P Vanderpool 4 degrees R Vanderpool 11 degrees T Vanderpool 64 degrees Sinus bradycardia with occasional Premature ventricular complexes Minimal voltage criteria for LVH, may be normal variant Nonspecific T wave abnormality Abnormal ECG No previous ECGs available Confirmed by MD Edmondson Roberto ([id number]) on 08/06/2018 5:29:18 PM Procedure Note Interface, External Ris In - 08/06/2018 5:29 PM RECORDS MANAGEMENT ASSOCIATE Ventricular Rate 56 BPM Atrial Rate 56 BPM P-R Interval 178 ms QRS Duration 100 ms Q-T Interval 472 ms QTC Calculation(Bazett) 455 ms P Vanderpool 4 degrees R Vanderpool 11 degrees T Vanderpool 64 degrees Sinus bradycardia with occasional Premature ventricular complexes Minimal voltage criteria for LVH, may be normal variant Nonspecific T wave abnormality Abnormal ECG No previous ECGs available Confirmed by MD Edmondson Roberto ([id number]) on 08/06/2018 5:29:18 PM Performing Organization Address City/State/Zipcode Phone Number GE MUSE Prothrombin time/INR (08/04/2018 5:58 PM RECORDS MANAGEMENT ASSOCIATE)Only the most recent of2 resultswithin the time period is included. Protime 16.1 (H) 11.7 - 14.7 seconds [facility] INR 1.3 <=5.9 [facility] Specimen Blood Narrative Performed At RECOMMENDED COUMADIN/WARFARIN INR THERAPY [facility] RANGES STANDARD DOSE: 2.0 - 3.0 Includes: PROPHYLAXIS for venous thrombosis, systemic embolization; TREATMENT for venous thrombosis and/or pulmonary embolus. HIGH RISK: Target INR is 2.5-3.5 for patients with mechanical heart valves. Performing Organization Address [facility] Phone Number [address] [address] CENTER POC-Lactic Acid, Venous (08/04/2018 5:53 PM RECORDS MANAGEMENT ASSOCIATE) POC-Lactic Acid, Venous 2.0 (H)Comment: 0.9 - 1.7 mmol/L [facility] TESTED AT [facility] [address] [place] [id number] Specimen Blood Performing Organization Address [facility] Hospitalcova Phone Number [address] [address] CENTER Type and screen, automated (08/04/2018 12:48 AM RECORDS MANAGEMENT ASSOCIATE) ABO/RH AUTOMATED (BEAKER) O POSITIVE [facility] Ab Scrn NEGATIVE [facility] Specimen Blood Performing Organization Address City/[facility] Hospitalcode Phone Number [address] [address] Vitamin B12 and Folate (08/04/2018 12:21 AM RECORDS MANAGEMENT ASSOCIATE) Vitamin B12 659 213 - 816 pg/mL [facility] Folate 11.1 >=7.0 ng/mL [facility] Specimen Blood Performing Organization Address [facility] Hospitalcode Phone Number [address] [address] CENTER Iron, TIBC, % sat. (without ferritin) (08/04/2018 12:21 AM RECORDS MANAGEMENT ASSOCIATE) Iron 56 40 - 160 ug/dL [facility] TIBC 319 250 - 450 ug/dL [facility] Iron % Saturation 18 (L) 20 - 55 % [facility] Specimen Blood Performing Organization Address City/[facility]/Zipcode Phone Number [address] [address] [place] Ferritin (08/04/2018 12:21 AM RECORDS MANAGEMENT ASSOCIATE) Ferritin 164 5 - 275 ng/mL [facility] Specimen Blood Performing Organization Address City/[facility] Hospitalcode Phone Number [address] [address] [place] Comprehensive metabolic panel (08/04/2018 12:21 AM RECORDS MANAGEMENT ASSOCIATE) Protein, Total 6.7 6.0 - 8.3 gm/dL [facility] Albumin 4.1 3.5 - 5.0 g/dL [facility] Alkaline Phosphatase 67 40 - 150 U/L [facility] Total Bilirubin 0.6 0.2 - 1.2 mg/dL [facility] Sodium 138 136 - 145 meq/L [facility] Potassium 3.3 (L) 3.5 - 5.1 meq/L [facility] Chloride 104 98 - 107 meq/L [facility] CO2 25 22 - 29 meq/L [facility] BUN 23 (H) 7 - 21 mg/dL [facility] Creatinine 0.92 0.57 - 1.25 mg/dL [facility] Glucose 196 (H) 70 - 105 mg/dL [facility] Calcium 8.8 8.4 - 10.2 mg/dL [facility] AST 19 5 - 34 U/L [facility] ALT 23 6 - 55 U/L [facility] EGFR 82Comment: ESTIMATED GFR mL/min/1.[address] [facility] IS NOT ACCURATE [facility] CREATININE CLEARANCE IN PREDICTING GLOMERULAR FILTRATION RATE. ESTIMATED GFR IS NOT APPLICABLE FOR DIALYSIS PATIENTS. Specimen Blood Performing Organization Address City/State/Zipcode Phone Number [facility] [address] [place] [address] CENTER after 02/25/2018 Insurance Payer Benefit Plan / Group Subscriber ID Type Phone Address MEDICARE MEDICARE A B xxxxxxxxxxx Medicare MEDICAID [place]ICAID [place] xxxxxxxxx Medicaid Advance Directives For more information, please contact:[facility] [place] [address] [phone] Code Status Date Activated Date Inactivated Comments Full Code 08/04/2018 12:14 AM This code status was determined by: Patient
[2019-02-26] MEDS ORDERED: ENALAPRILAT 1.25 MG/ML VIAL IV ONE (08:55)
[2019-02-26 09:06] LABS: Potassium 4.2 mmol/L (3.5-5.1)
[2019-02-26 09:16] LABS: Absolute Lymphocytes (CBC) 1.2 K/uL (0.7-4.9); Absolute Monocytes 0.5 K/uL (0.1-1.3); Absolute Neutrophil 2.9 K/uL (1.8-8.0); Basophils % 0.6 % (0-1.3); Eosinophils % 3.7 % (0-4.4); Hematocrit 43.9 % (39.6-49.0); MPV 6.9 fL (7.6-11.3); Monocytes % 9.8 % (3.3-12.3); RBC Red Blood Cell Count 4.91 M/uL (4.33-5.43)
--- NOTE | 2019-02-26 09:23 | EDPHYS ---
Physician Documentation [facility] Name: Anthony Rooney Age: 68 yrs Sex: Male : 1950 Arrival Date: 02/26/2019 Time: 08:11 Bed 7 Private MD: ED Physician Cristi Kang HPI: 02/26 09:18 This 68 yrs old Male presents to ER via Ambulatory with complaints of High gs Blood Sugar, High Blood Pressure. 09:18 Onset: The symptoms/episode began/occurred 1 week(s) ago. Associated signs and gs symptoms: Pertinent negatives: nausea. Current symptoms: In the emergency department the patient's symptoms are unchanged from the initial presentation. The patient has experienced similar episodes in the past, a few times. Historical: - Allergies: : NKA; iw - Home Meds: : Victoza 3-Dieudonne 0.6 mg/0.1 mL (18 mg/3 mL) subcutaneous pnij once daily [Active]; iw pantoprazole 40 mg oral TbEC 1 tab once daily [Active]; lisinopril 20 mg Oral tab 1 tab twice a day [Active]; simvastatin 40 mg Oral tab 1 tab once daily [Active]; - PMHx: 08:29 Diabetes - IDDM; High Cholesterol; Hypertension; Ulcers; iw - PSHx: : None; iw - Immunization history:: Adult Immunizations up to date. - Social history:: Smoking status: Patient/guardian denies using tobacco. - Ebola Screening: : Patient negative for fever greater than or equal to 101.5 degrees Fahrenheit, and additional compatible Ebola Virus Disease symptoms Patient denies exposure to infectious person Patient denies travel to an Ebola-affected area in the 21 days before illness onset No symptoms or risks identified at this time. ROS: 09:18 All other systems are negative. gs Exam: 09:18 Head/Face: Normocephalic, atraumatic. Eyes: Pupils equal round and reactive to light, gs extra-ocular motions intact. Lids and lashes normal. Conjunctiva and sclera are non-icteric and not injected. Cornea within normal limits. Periorbital areas with no swelling, redness, or edema. ENT: Nares patent. No nasal discharge, no septal abnormalities noted. Tympanic membranes are normal and external auditory canals are clear. Oropharynx with no redness, swelling, or masses, exudates, or evidence of obstruction, uvula midline. Mucous membranes moist. Neck: Trachea midline, no thyromegaly or masses palpated, and no cervical lymphadenopathy. Supple, full range of motion without nuchal rigidity, or vertebral point tenderness. No Meningismus. Chest/axilla: Normal chest wall appearance and motion. Nontender with no deformity. No lesions are appreciated. Cardiovascular: Regular rate and rhythm with a normal S1 and S2. No gallops, murmurs, or rubs. Normal PMI, no JVD. No pulse deficits. Respiratory: Lungs have equal breath sounds bilaterally, clear to auscultation and percussion. No rales, rhonchi or wheezes noted. No increased work of breathing, no retractions or nasal flaring. Abdomen/GI: Soft, non-tender, with normal bowel sounds. No distension or tympany. No guarding or rebound. No evidence of tenderness throughout. Back: No spinal tenderness. No costovertebral tenderness. Full range of motion. Skin: Warm, dry with normal turgor. Normal color with no rashes, no lesions, and no evidence of cellulitis. MS/ Extremity: Pulses equal, no cyanosis. Neurovascular intact. Full, normal range of motion. Neuro: Awake and alert, GCS 15, oriented to person, place, time, and situation. Cranial nerves II-XII grossly intact. Motor strength 5/5 in all extremities. Sensory grossly intact. Cerebellar exam normal. Normal gait. 09:18 Constitutional: The patient appears alert, awake. 09:18 ECG was reviewed by the Attending Physician. Vital Signs: 08:30 BP 213 / 98; Pulse 75; Resp 16; Temp 97.8; Pulse Ox 97% on R/A; Weight 86.18 kg; Height iw 5 ft. 9 in. (175.26 cm); Pain 0/10; 09:30 BP 148 / 84; Pulse 75; Resp 15; Pulse Ox 100% on R/A; Pain 0/10; hb 08:30 Body Mass Index 28.06 (86.18 kg, 175.26 cm) iw MDM: 08:33 Patient medically screened. gs 09:18 Differential diagnosis: hyperglycemia. Data reviewed: vital signs, nurses notes, lab gs test result(s), EKG. Counseling: I had a detailed discussion with the patient and/or guardian regarding: the historical points, exam findings, and any diagnostic results supporting the discharge/admit diagnosis, the need for outpatient follow up. Response to treatment: the patient's symptoms have markedly improved after treatment, and as a result, I will discharge patient. 02/26 08:25 Order name: Glucose, Ancillary Testing; Complete Time: 08:34 EDNJ 02/26 08:34 Order name: Basic Metabolic Panel; Complete Time: 09:20 02/26 08:34 Order name: CBC with Diff; Complete Time: 09:20 02/26 08:34 Order name: EKG; Complete Time: 08:37 02/26 08:34 Order name: Cardiac monitoring; Complete Time: 08:54 02/26 08:34 Order name: EKG - Nurse/Tech; Complete Time: 08:55 02/26 08:34 Order name: IV Saline Lock; Complete Time: 08:55 02/26 08:34 Order name: Labs collected and sent; Complete Time: 08:55 02/26 08:34 Order name: O2 Per Protocol; Complete Time: 08:55 02/26 08:34 Order name: O2 Sat Monitoring; Complete Time: 08:55 gs Administered Medications: 08:50 Drug: Enalaprilat 1.25 mg Route: IV; Rate: calculated rate; Site: right antecubital; hb 08:55 Follow up: IV Status: Completed infusion hb 09:22 Follow up: Response: No adverse reaction hb Disposition: 02/26/19 09:22 Discharged to Home. Impression: Hyperglycemia, unspecified, Essential (primary) hypertension. - Condition is Stable. - Discharge Instructions: Hyperglycemia, Hypertension. - Medication Reconciliation Form, Thank You Letter, Antibiotic Education, Prescription Opioid Use form. - Follow up: Private Physician; When: 1 - 2 days; Reason: Re-evaluation by your physician. - Notes: may increase lisinopril to 30mg daily Signatures: Dispatcher [employer] Jessica Heath, MONIKA FRANK Janet Castelan RN RN Cristi Ponce MD MD Corrections: (The following items were deleted from the chart) 09:50 09:22 02/26/2019 09:22 Discharged to Home. Impression: Hyperglycemia, unspecified; hb Essential (primary) hypertension. Condition is Stable. Forms are Medication Reconciliation Form, Thank You Letter, Antibiotic Education, Prescription Opioid Use. Follow up: Private Physician; When: 1 - 2 days; Reason: Re-evaluation by your physician. gs
--- NOTE | 2019-02-26 09:23 | ER ---
Nurse's Notes [facility] Name: Anthony Rooney Age: 68 yrs Sex: Male : 1950 Arrival Date: 02/26/2019 Time: 08:11 Bed 7 Private MD: Diagnosis: Hyperglycemia, unspecified;Essential (primary) hypertension Presentation: 02/26 08:26 Presenting complaint: Patient states: BP and blood sugar has been running high for past iw 4-5 days, BP 189 systolic, BS 300 at home. Transition of care: patient was not received from another setting of care. Onset of symptoms was February 26, 2019. Risk Assessment: Do you want to hurt yourself or someone else? Patient reports no desire to harm self or others. Initial Sepsis Screen: Does the patient meet any 2 criteria? No. Patient's initial sepsis screen is negative. Does the patient have a suspected source of infection? No. Patient's initial sepsis screen is negative. Care prior to arrival: None. 08:26 Method Of Arrival: Ambulatory iw 08:26 Acuity: NAE 3 iw Historical: - Allergies: 08:29 NKA; iw - Home Meds: 08:29 Victoza 3-Dieudonne 0.6 mg/0.1 mL (18 mg/3 mL) subcutaneous pnij once daily [Active]; iw pantoprazole 40 mg oral TbEC 1 tab once daily [Active]; lisinopril 20 mg Oral tab 1 tab twice a day [Active]; simvastatin 40 mg Oral tab 1 tab once daily [Active]; - PMHx: 08:29 Diabetes - IDDM; High Cholesterol; Hypertension; Ulcers; iw - PSHx: 08:29 None; iw - Immunization history:: Adult Immunizations up to date. - Social history:: Smoking status: Patient/guardian denies using tobacco. - Ebola Screening: : Patient negative for fever greater than or equal to 101.5 degrees Fahrenheit, and additional compatible Ebola Virus Disease symptoms Patient denies exposure to infectious person Patient denies travel to an Ebola-affected area in the 21 days before illness onset No symptoms or risks identified at this time. Screenin:51 Abuse screen: Denies threats or abuse. Denies injuries from another. Nutritional hb screening: No deficits noted. Tuberculosis screening: No symptoms or risk factors identified. Fall Risk None identified. Assessment: 08:52 General: Appears in no apparent distress. Behavior is calm, cooperative. Pain: Denies hb pain. Neuro: Level of Consciousness is awake, alert, obeys commands, Oriented to person, place, time, situation, Reports dizziness, x 5 days. Cardiovascular: Capillary refill < 3 seconds Patient's skin is warm and dry. Respiratory: Airway is patent Respiratory effort is even, unlabored, Respiratory pattern is regular, symmetrical. GI: No signs and/or symptoms were reported involving the gastrointestinal system. : No signs and/or symptoms were reported regarding the genitourinary system. EENT: No signs and/or symptoms were reported regarding the EENT system. Derm: Skin is intact, is healthy with good turgor, Skin is pink, warm \T\ dry. Musculoskeletal: No signs and/or symptoms reported regarding the musculoskeletal system. 09:49 Reassessment: Patient appears in no apparent distress at this time. Patient and/or hb family updated on plan of care and expected duration. Pain level reassessed. Patient is alert, oriented x 3, equal unlabored respirations, skin warm/dry/pink. Vital Signs: 08:30 BP 213 / 98; Pulse 75; Resp 16; Temp 97.8; Pulse Ox 97% on R/A; Weight 86.18 kg; Height iw 5 ft. 9 in. (175.26 cm); Pain 0/10; 09:30 BP 148 / 84; Pulse 75; Resp 15; Pulse Ox 100% on R/A; Pain 0/10; hb 08:30 Body Mass Index 28.06 (86.18 kg, 175.26 cm) iw ED Course: 08:11 Patient arrived in ED. as 08:24 Cristi Kang MD is Attending Physician. gs 08:28 Triage completed. iw 08:30 Arm band placed on. iw 08:37 Janet Castelan, RN is Primary Nurse. hb 08:48 Patient has correct armband on for positive identification. Bed in low position. Call hb light in reach. Side rails up X 1. 08:48 Inserted saline lock: 20 gauge in right antecubital area, using aseptic technique. hb Blood collected. 09:39 EKG done, by ED staff, reviewed by Cristi Kang MD. em1 09:50 No provider procedures requiring assistance completed. IV discontinued, intact, hb bleeding controlled, No redness/swelling at site. Pressure dressing applied. Administered Medications: 08:50 Drug: Enalaprilat 1.25 mg Route: IV; Rate: calculated rate; Site: right antecubital; hb 08:55 Follow up: IV Status: Completed infusion hb 09:22 Follow up: Response: No adverse reaction hb Outcome: 09:22 Discharge ordered by . 09:50 Discharged to home ambulatory. hb 09:50 Condition: stable 09:50 Discharge instructions given to patient, Instructed on discharge instructions, follow up and referral plans. medication usage, Demonstrated understanding of instructions, follow-up care, medications. 09:50 Patient left the ED. Signatures: Maria C Medina Irene, MONIKA FRANK Stevie Medina em1 Janet Castelan, MONIKA RN Cristi Kang MD MD
[2019-02-26 10:01] VITALS: TEMP 97.8
[2019-02-26 10:03] VITALS: BP 148/84; O2SAT 100
--- NOTE | 2019-02-26 20:50 | EKG ---
Test Date: 2019-02-26 Test Time: 09:25:11 [employer]: JOSH MEASUREMENT RESULTS: Intervals: Rate: 72 CO: 178 QRSD: 100 QT: 400 QTc: 438 [place]: P: 7 CO: 178 QRS: -4 T: 128 INTERPRETIVE STATEMENTS: Normal sinus rhythm T wave abnormality, consider lateral ischemia Abnormal ECG Compared to ECG 08/03/2018 10:02:02 T-wave abnormality now present Possible ischemia now present Left ventricular hypertrophy no longer present Prolonged QT interval no longer present Electronically Signed On 02-26-19 20:49:07 CDT by Chay Contreras
== END 2019-02-26 09:50 | disposition home or self-care (01) ==
LOC: ER 08:07
DX: E11.65 Type 2 diabetes mellitus with hyperglycemia (principal); I10 Essential (primary) hypertension; E78.00 Pure hypercholesterolemia, unspecified; Z79.4 Long term (current) use of insulin
CPT/HCPCS: 36415; 80048; 82962; 85025; 93005; 96374; 99284

== ENCOUNTER 2019-06-12 11:05 | Emergency (ER) | payer OTHER ==
--- NOTE | 2019-06-12 15:58 | EDPHYS ---
Physician Documentation [facility] Name: Anthony Rooney Age: 68 yrs Sex: Male : 1950 Arrival Date: 06/12/2019 Time: 11:07 Bed External Waiting Private MD: ED Physician Yogesh Pacheco HPI: 06/12 12:35 This 68 yrs old Male presents to ER via Ambulatory with complaints of Head kb Injury-Adult. 12:35 The patient or guardian reports injury, a laceration. The complaints affect the right kb side of the back of head. Context of injury: The problem was sustained at home, resulted from a direct blow, a heavy object. Onset: The symptoms/episode began/occurred just prior to arrival. Associated signs and symptoms: Loss of consciousness: This patient did not experience any loss of consciousness. Pertinent positives: dazed, injury. Severity of symptoms: At their worst the symptoms were mild, in the emergency department the symptoms are unchanged. The patient has not experienced similar symptoms in the past. The patient has not recently seen a physician. Pt reports laceration to back of head after a lawnmower seat hit him. States he had some dizziness afterwards, but that has now resolved. Reports he only came to see if he needed antibiotics because he is diabetic.. Historical: - Allergies: 19:12 NKA; iw - Immunization history:: Adult Immunizations unknown. - Social history:: Smoking status: unknown. - Ebola Screening: : Patient negative for fever greater than or equal to 101.5 degrees Fahrenheit, and additional compatible Ebola Virus Disease symptoms Patient denies exposure to infectious person Patient denies travel to an Ebola-affected area in the 21 days before illness onset No symptoms or risks identified at this time. ROS: 12:34 Constitutional: Negative for fever, chills, and weight loss, ENT: Negative for injury, kb pain, and discharge, Neck: Negative for injury, pain, and swelling, Cardiovascular: Negative for chest pain, palpitations, and edema, Respiratory: Negative for shortness of breath, cough, wheezing, and pleuritic chest pain, Abdomen/GI: Negative for abdominal pain, nausea, vomiting, diarrhea, and constipation, Back: Negative for injury and pain, MS/Extremity: Negative for injury and deformity, Neuro: Negative for headache, weakness, numbness, tingling, and seizure. 12:34 Skin: Positive for laceration(s), of the scalp. Exam: 12:34 Constitutional: This is a well developed, well nourished patient who is awake, alert, kb and in no acute distress. Eyes: Pupils equal round and reactive to light, extra-ocular motions intact. Lids and lashes normal. Conjunctiva and sclera are non-icteric and not injected. Cornea within normal limits. Periorbital areas with no swelling, redness, or edema. ENT: Nares patent. No nasal discharge, no septal abnormalities noted. Tympanic membranes are normal and external auditory canals are clear. Oropharynx with no redness, swelling, or masses, exudates, or evidence of obstruction, uvula midline. Mucous membranes moist. Neck: Trachea midline, no thyromegaly or masses palpated, and no cervical lymphadenopathy. Supple, full range of motion without nuchal rigidity, or vertebral point tenderness. No Meningismus. Chest/axilla: Normal chest wall appearance and motion. Nontender with no deformity. No lesions are appreciated. Cardiovascular: Regular rate and rhythm with a normal S1 and S2. No gallops, murmurs, or rubs. Normal PMI, no JVD. No pulse deficits. Respiratory: Lungs have equal breath sounds bilaterally, clear to auscultation and percussion. No rales, rhonchi or wheezes noted. No increased work of breathing, no retractions or nasal flaring. Abdomen/GI: Soft, non-tender, with normal bowel sounds. No distension or tympany. No guarding or rebound. No evidence of tenderness throughout. Back: No spinal tenderness. No costovertebral tenderness. Full range of motion. Skin: Warm, dry with normal turgor. Normal color with no rashes, no lesions, and no evidence of cellulitis. MS/ Extremity: Pulses equal, no cyanosis. Neurovascular intact. Full, normal range of motion. Neuro: Awake and alert, GCS 15, oriented to person, place, time, and situation. Cranial nerves II-XII grossly intact. Motor strength 5/5 in all extremities. Sensory grossly intact. Cerebellar exam normal. Normal gait. 12:34 Head/face: Noted is no obvious of injury or deformity except a laceration(s), that is superficial, 1 cm(s), of the scalp. Vital Signs: 11:22 BP 217 / 99; Pulse 82; Resp 16; Temp 97.4; Pulse Ox 100% on R/A; Weight 82.55 kg; la1 Height 5 ft. 9 in. (175.26 cm); 11:22 Body Mass Index 26.88 (82.55 kg, 175.26 cm) la1 Dante Coma Score: 11:20 Eye Response: spontaneous(4). Verbal Response: oriented(5). Motor Response: obeys la1 commands(6). Total: 15. 11:53 Eye Response: spontaneous(4). Verbal Response: oriented(5). Motor Response: obeys kb commands(6). Total: 15. 12:35 Eye Response: spontaneous(4). Verbal Response: oriented(5). Motor Response: obeys kb commands(6). Total: 15. MDM: 11:33 Patient medically screened. kb 11:53 Data reviewed: vital signs, nurses notes. Data interpreted: Pulse oximetry: on room air kb is 100 %. Interpretation: normal. Counseling: I had a detailed discussion with the patient and/or guardian regarding: the historical points, exam findings, and any diagnostic results supporting the discharge/admit diagnosis, radiology results, the need for outpatient follow up, a family practitioner, to return to the emergency department if symptoms worsen or persist or if there are any questions or concerns that arise at home. Administered Medications: No medications were administered Disposition: 18:42 Co-signature as Attending Physician, Yogesh Pacheco MD. rn Disposition: 06/12/19 12:33 Discharged to Home. Impression: Superficial injury of head, Laceration without foreign body of scalp. - Condition is Stable. - Discharge Instructions: Laceration Care, Adult, [id number], Head Injury, Adult, [id number]. - Medication Reconciliation Form, Thank You Letter, Antibiotic Education, Prescription Opioid Use form. - Follow up: Emergency Department; When: As needed; Reason: Worsening of condition. Follow up: Private Physician; When: 2 - 3 days; Reason: Recheck today's complaints, Continuance of care, Re-evaluation by your physician. Signatures: Kavya Marie, COIL BINDER-C COIL BINDER-Ckb Jessica Mora RN RN Yogesh Washington MD MD rn cardiology: (The following items were deleted from the chart) 13:35 12:33 06/12/2019 12:33 Discharged to Home. Impression: Superficial injury of head; iw Laceration without foreign body of scalp. Condition is Stable. Forms are Medication Reconciliation Form, Thank You Letter, Antibiotic Education, Prescription Opioid Use. Follow up: Emergency Department; When: As needed; Reason: Worsening of condition. Follow up: Private Physician; When: 2 - 3 days; Reason: Recheck today's complaints, Continuance of care, Re-evaluation by your physician. kb
--- NOTE | 2019-06-12 15:59 | ER ---
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 Pt denies LOC, reports some dizziness but has steady gait and no focal neurological deficits. Reports he is concerned because he has a small cut on his scalp and is diabetic. Transition of care: patient was not received from another setting of care. Mechanism of Injury: resulted from object falling on head. Onset of symptoms was June 12, 2019. Risk Assessment: Do you want to hurt yourself or someone else? Patient reports no desire to harm self or others. Initial Sepsis Screen: Does the patient meet any 2 criteria? No. Patient's initial sepsis screen is negative. Does the patient have a suspected source of infection? No. Patient's initial sepsis screen is negative. Care prior to arrival: None. 11:20 Method Of Arrival: Ambulatory la1 11:20 Acuity: NAE 4 la1 Triage Assessment: 13:00 Neuro: Level of Consciousness is awake, alert, obeys commands, Reports. iw 13:34 General: Appears in no apparent distress. Behavior is calm, cooperative. iw Historical: - Allergies: 19:12 NKA; iw - Immunization history:: Adult Immunizations unknown. - Social history:: Smoking status: unknown. - Ebola Screening: : Patient negative for fever greater than or equal to 101.5 degrees Fahrenheit, and additional compatible Ebola Virus Disease symptoms Patient denies exposure to infectious person Patient denies travel to an Ebola-affected area in the 21 days before illness onset No symptoms or risks identified at this time. Screenin:30 Abuse screen: Denies threats or abuse. Denies injuries from another. Nutritional iw screening: No deficits noted. Tuberculosis screening: No symptoms or risk factors identified. Fall Risk None identified. Assessment: 12:00 General: Appears in no apparent distress. Behavior is calm, cooperative. Pain: iw Complains of pain in right side of the back of head. Neuro: Level of Consciousness is awake, alert, obeys commands, Oriented to person, place, time, situation, Moves all extremities. Full function. Cardiovascular: Patient's skin is warm and dry. Respiratory: Respiratory effort is even, unlabored, Respiratory pattern is regular. Musculoskeletal: Range of motion: intact in all extremities. Injury Description: Laceration sustained to right side of the back of head is jagged, 0.5 to 2.5 cm long, a small amount of bleeding noted at this time. 12:32 Reassessment: wound has been cleaned by MANUEL Menendez, not bleeding at this time. iw 13:30 Reassessment: Patient appears in no apparent distress at this time. Patient and/or iw family updated on plan of care and expected duration. Pain level reassessed. Patient is alert, oriented x 3, equal unlabored respirations, skin warm/dry/pink. Vital Signs: 11:22 BP 217 / 99; Pulse 82; Resp 16; Temp 97.4; Pulse Ox 100% on R/A; Weight 82.55 kg; la1 Height 5 ft. 9 in. (175.26 cm); 11:22 Body Mass Index 26.88 (82.55 kg, 175.26 cm) la1 [place] Coma Score: 11:20 Eye Response: spontaneous(4). Verbal Response: oriented(5). Motor Response: obeys la1 commands(6). Total: 15. 11:53 Eye Response: spontaneous(4). Verbal Response: oriented(5). Motor Response: obeys kb commands(6). Total: 15. 12:35 Eye Response: spontaneous(4). Verbal Response: oriented(5). Motor Response: obeys kb commands(6). Total: 15. ED Course: 11:07 Patient arrived in ED. as 11:22 Triage completed. la1 11:22 Arm band placed on left wrist. la1 11:33 Kavya Marie FNP-C is PHCP. kb 11:33 Yogesh Pacheco MD is Attending Physician. kb 12:00 Patient has correct armband on for positive identification. iw 12:35 No provider procedures requiring assistance completed. Patient did not have IV access iw during this emergency room visit. 13:14 Jessica Mora, RN is Primary Nurse. iw Administered Medications: No medications were administered Outcome: 12:33 Discharge ordered by . juan a 13:34 Discharged to home ambulatory, with family. iw 13:34 Condition: good 13:34 Discharge instructions given to patient, family, Instructed on discharge instructions, follow up and referral plans. Demonstrated understanding of instructions, follow-up care. 13:35 Patient left the ED. iw Signatures: Kavya Marie, [employer] SUPERVISOR-C VICKY-Maria C Tapia Irene RN Hilario Tejada RN RN la1
[2019-06-12 18:38] VITALS: BP 217/99; TEMP 97.4; O2SAT 100
--- NOTE | 2019-06-13 12:18 | RAD REPORT ---
EXAM DESCRIPTION: CT HEAD/BRAIN WITHOUT CONTRAST CLINICAL HISTORY: Head trauma, fall, head injury. COMPARISON: None. TECHNIQUE: Axial computed tomography of the head/brain without intravenous contrast. Sagittal and coronal reformatted images were created and reviewed. This exam was performed according to our departmental dose-optimization program, which includes automated exposure control, adjustment of the mA and/or kV according to patient size and/or use of iterative reconstruction technique. FINDINGS: Mild generalized brain atrophy is seen. No acute hemorrhage, hydrocephalus or midline shift. No pathologic areas of brain edema. The calvarium is intact. The paranasal sinuses and mastoids are clear. IMPRESSION: 1. No acute intracranial abnormality is seen. 2. Mild generalized brain atrophy.
== END 2019-06-12 13:35 | disposition home or self-care (01) ==
LOC: ER 11:05
DX: S01.01XA Laceration without foreign body of scalp, initial encounter (principal); W20.8XXA Other cause of strike by thrown, projected or falling object, initial encounter; Y93.89 Activity, other specified; Y92.9 Unspecified place or not applicable
CPT/HCPCS: 70450; 99281

== ENCOUNTER 2020-05-29 15:31 | Observation (INO) | payer OTHER ==
--- OUTSIDE RECORDS SUMMARY | 2020-05-29 15:33 | XMS REPORT | Continuity of Care Document ---
:1950 Author Organization [facility] t Address [address] [place] [address] Care Team Providers Name Role Phone Torsten Moulton Primary Care Physician SG Attending Clinician Unavailable SG Admitting Clinician Unavailable Problems Condition Condition Condition Status Onset Resolution Last Treating Co mments Source Name Details Category Date Date Treatment Clinician Date Gastric Gastric Disease Active 2017-[address] [facility] ulcer ulcer 10[facility]05 [facility] Sigmoid Sigmoid Disease Active 2017-[address] [facility] diverticul diverticul 10-05 Candida kes - osis osis 00:00: Medical 00 Center Type 2 Type 2 Disease Active 2017-[address] [facility] diabetes diabetes 10-04 [facility] - mellitus mellitus 00:00: Medica l without without 00 Center complicati complicati on, on, without without long-term long-term current current use of use of insulin insulin Essential Essential Problem Active [facility] hypertensi hypertensi Candida kes - on on Memoria l Outpati ent Clinics Asymptomat Asymptomat Problem Active [facility] ic ic [facility] - hypertensi hypertensi Me moria ve urgency ve urgency l Outpati ent Clinics Type 2 Type [address] [facility] diabetes diabetes [facility] - mellitus mellitus Memori a with with l hyperglyce hyperglyce Ou tpati gaviota, gaviota, ent without without Clinics long-term long-term current current use of use of insulin insulin Excessive Excessive Diagnosis Active [facility] use of use of [facility] - nonsteroid nonsteroid Me moria al al l anti-infla anti-infla Ou tpati mmatory mmatory ent drug drug Clinics (NSAID) (NSAID) Osteoarthr Osteoarthr Problem Active [facility] itis of itis of [facility] - multiple multiple Memori a joints, joints, l unspecifie unspecifie Ou tpati d d ent osteoarthr osteoarthr Cl inics itis type itis type GERD GERD Problem Active [facility] without without [facility] - esophagiti esophagiti Me moria s s [facility] Mixed Mixed Problem Active [facility] hyperlipid hyperlipid [facility] emia emia [facility] Allergies, Adverse Reactions, Alerts This patient has no known allergies or adverse reactions. Social History Social Habit Start Date Stop Date Quantity Comments Source Sex Assigned At [facility] History [facility] 2018-08-04 2018-08-[address] [facility] - Alcohol Frequency 00:00:00 00:00:00 [facility] History [facility] 2018-08-04 2018-08-04 3 [facility] Std Drinks 00:00:00 00:00:00 [facility] History [facility] 2018-08-04 2018-08-[address] [facility] - Alcohol Binge 00:00:00 00:00:[address] [facility] [address] Alcohol Comment 2018-08-04 2018-08-04 [facility] - [facility]00 00:00:00 he quit drinking [facility] a week ago Smoking Status Start Date Stop Date Source Never smoker [facility] Medications Ordered Filled Start Stop Current Ordering Indication Dosage Frequency Signature Comments Components Source Medication Medication Date Date Medication? Clinician (SIG) Name Name MetFORMIN MetFORMIN Yes [facility] [address] [facility] HCl ER HCl ER 05-14 Mueller with meal [facility] - 00:00: Memoria 00 [facility] Lisinopril- Lisinopril- Yes [facility] [address] [facility] Hydrochloro Hydrochloro 05-14 [facility] - thiazide thiazide 00:00: Memor ia 00 [facility] simvastatin 2017-09 Yes 40mg QD Take [address] (ZOCOR) 40 1-22 by mouth [facility] - MG tablet 00:26: nightly. [address] metFORMIN 2017-09 Yes 500mg Take [address] [facility] (GLUCOPHAGE 1-22 mg by [facility] - ) 500 MG 00:26: mouth 2 Medica l tablet 52 (two) Center times daily with breakfast and dinner. VICTOZA 2017-09 Yes 1.2mg QD Inject 1.[address] 2-YAQUELIN 0.6 0-23 mg [facility] - mg/0.1 mL 00:00: subcutaneo Me dical (18 mg/3 00 usly Center mL) PnIj daily. lisinopril 2018 Yes 20mg Take [address] (PRINIVIL,Z 0-08 by mouth Luke s - ESTRIL) 20 00:00: every 12 Med ical MG tablet 00 (twelve) Center hours. Diclofenac Diclofenac Yes [facility] [address] Sodium Sodium Mueller [facility] ent [facility] Victoza Victoza Yes [facility] as [facility] Mueller directed [facility] Metformin Metformin Yes [facility] [address] [address] HCl HCl Mueller with a [facility] - meal [facility] Pantoprazol Pantoprazol Yes [facility] [address] [facility] e Sodium e Sodium Mueller [facility] Simvastatin Simvastatin Yes [facility] [address] [facility] Mueller in the [facility] - evening [facility] Lisinopril Lisinopril Yes [facility] [address] [facility] Mueller [facility] Procedures This patient has no known procedures. Encounters Start End Encounter Admission Attending Care Care Encounter Source Date/Time Date/Time Type Type Clinicians Facility Department ID 2020-05-14 2020-05-14 [facility] [address] 09:40:00 09:40:00 [facility] - Drive Family [facility] Family Medicine Medicine [facility] Results Test Description Test Time Test Comments Results Result Sour e Comments TISSUE EXAM 2018-08-08 Surgical Pathology Report 15:51:00 Case: [id number] Authorizing Provider: Paulina Simpson MD Collected: 08/05/2018 1009 Ordering Location: [address] Received: 08/05/2018 1409 Service Pathologist: Claude Chacon MD Specimens: A) - Biopsy, Gastric, Random B) - Polyp, Colon - Cecum, Polyp A. STOMACH, RANDOM, BIOPSY: - CHRONIC INACTIVE GASTRITIS - NEGATIVE FOR H. PYLORI BY WARTHIN STARRY STAINB. COLON, CECUM, POLYPECTOMY: - TUBULAR ADENOMA Signing Pathologist Direct Phone Line: [phone] y signed by Claude Chacon MD on 08/08/2018 at 3:51 [id number] X 2 , [id number] bleedA. Random gastric biopsy; B. Cecum colon [...] stains. Immunohistochemistry technical testing was performed at [facility], Pathology Laboratory where it was developed and [...] 2018-08-05 12:49:00 Test Item Value Reference Range Interpretation Comme nts POC-GLUCOSE METER ([employer] Software) (test 190 mg/dL 70-110 H TESTED AT [facility] [address] [facility] code = 1538) [facility] 7703 0 POCT-GLUCOSE [id number] 10:55:00 Test Item Value Reference Range Interpretation Comments POC-GLUCOSE METER 196 mg/dL 70-110 H TESTED AT [facility] 67[address] ([employer]) (test code = RAFIQ R [facility] 1538) [address] U/S, ABDOMINAL, [id number] 08:36:00Abdomen limited area? Add comment if clarification [...] infiltration of the liver. Signed: Hayden Sahu MDReport Verified Date/Time: 08/05/2018 08:36:42 Reading Location: [facility] [id number] Ultrasound Reading Room [id number] 07:05:00 Test Item Value Reference Range Interpretation Comments PHOSPHORUS (BEAKER) (test code = 2.1 mg/dL 2.3-4.7 L 604) [id number] 07:05:00 Test Item Value Reference Range Interpretation Comments MAGNESIUM (BEAKER) (test code = 2.2 mg/dL 1.6-2.6 627) BASIC METABOLIC [id number] 07:05:00 Test Item Value Reference Range Interpretation Comments SODIUM (BEAKER) 138 meq/L 136-145 (test code = 381) POTASSIUM (BEAKER) 4.5 meq/L 3.5-5.1 (test code = 379) CHLORIDE (BEAKER) 111 meq/L 98-107 H (test code = 382) CO2 (BEAKER) (test 20 meq/L 22-29 L code = 355) BLOOD UREA NITROGEN 8 mg/dL 7-21 (BEAKER) (test code = 354) CREATININE (BEAKER) 0.74 mg/dL 0.57-1.25 (test code = 358) GLUCOSE RANDOM 207 mg/dL 70-105 H (BEAKER) (test code = 652) CALCIUM (BEAKER) 8.8 mg/dL 8.4-10.2 (test code = 697) EGFR (BEAKER) (test 106 mL/min/1.73 ESTIM ATED GFR IS code = 1092) sq m NOT ACCURATE CREATININE CLEARANCE IN PREDICTING GLOMERULAR FILTRATION RATE . ESTIMATED GFR I S NOT APPLICABLE FOR DIALYSIS PATIEN TS. HEPATIC FUNCTION [id number] 07:05:00 Test Item Value Reference Range Interpretation Comments TOTAL PROTEIN (BEAKER) (test code = 5.9 gm/dL 6.0-8.3 L 770) ALBUMIN (BEAKER) (test code = 1145) 3.5 g/dL 3.5-5.0 BILIRUBIN TOTAL (BEAKER) (test code 0.5 mg/dL 0.2-1.2 = 377) BILIRUBIN DIRECT (BEAKER) (test 0.2 mg/dL 0.1-0.5 code = 706) ALKALINE PHOSPHATASE (BEAKER) (test 55 U/L 40-150 code = 346) AST (SGOT) (BEAKER) (test code = 18 U/L 5-34 353) ALT (SGPT) (BEAKER) (test code = 17 U/L 6-55 347) TROPONIN [id number] 07:03:00 Test Item Value Reference Range Interpretation Comments TROPONIN I (BEAKER) (test code = 397) < ng/mL 0.00-0.03 HEMOGLOBIN AND [id number] 06:11:00 Test Item Value Reference Range Interpretation Comments HEMOGLOBIN (BEAKER) (test code = 10.1 GM/DL 13.7-17.5 L 410) HEMATOCRIT (BEAKER) (test code = 31.4 % 40.1-51.0 L 411) CBC W/PLT COUNT & AUTO [id number] 06:11:00 Test Item Value Reference Range Interpretation Comments WHITE BLOOD CELL COUNT (BEAKER) 5.0 K/ L 3.5-10.5 (test code = 775) RED BLOOD CELL COUNT (BEAKER) 3.47 M/ L 4.63-6.08 L (test code = 761) HEMOGLOBIN (BEAKER) (test code = 10.1 GM/DL 13.7-17.5 L 410) HEMATOCRIT (BEAKER) (test code = 31.4 % 40.1-51.0 L 411) MEAN CORPUSCULAR VOLUME (BEAKER) 90.5 fL 79.0-92.2 (test code = 753) MEAN CORPUSCULAR HEMOGLOBIN 29.1 pg 25.7-32.2 (BEAKER) (test code = 751) MEAN CORPUSCULAR HEMOGLOBIN CONC 32.2 GM/DL 32.3-36.5 L (BEAKER) (test code = 752) RED CELL DISTRIBUTION WIDTH 14.2 % 11.6-14.4 (BEAKER) (test code = 412) PLATELET COUNT (BEAKER) (test 317 K/CU MM 150-450 code = 756) MEAN PLATELET VOLUME (BEAKER) 8.5 fL 9.4-12.4 L (test code = 754) NUCLEATED RED BLOOD CELLS 0 /100 WBC 0-0 (BEAKER) (test code = 413) NEUTROPHILS RELATIVE PERCENT 67 % (BEAKER) (test code = 429) LYMPHOCYTES RELATIVE PERCENT 23 % (BEAKER) (test code = 430) MONOCYTES RELATIVE PERCENT 8 % (BEAKER) (test code = 431) EOSINOPHILS RELATIVE PERCENT 2 % (BEAKER) (test code = 432) BASOPHILS RELATIVE PERCENT 0 % (BEAKER) (test code = 437) NEUTROPHILS ABSOLUTE COUNT 3.33 K/ L 1.78-5.38 (BEAKER) (test code = 670) LYMPHOCYTES ABSOLUTE COUNT 1.14 K/ L 1.32-3.57 L (BEAKER) (test code = 414) MONOCYTES ABSOLUTE COUNT (BEAKER) 0.38 K/ L 0.30-0.82 (test code = 415) EOSINOPHILS ABSOLUTE COUNT 0.10 K/ L 0.04-0.54 (BEAKER) (test code = 416) BASOPHILS ABSOLUTE COUNT (BEAKER) 0.02 K/ L 0.01-0.08 (test code = 417) IMMATURE GRANULOCYTES-RELATIVE 0 % 0-1 PERCENT (BEAKER) (test code = 2801) POCT-GLUCOSE [id number] 20:44:00 Test Item Value Reference Range Interpretation Comments POC-GLUCOSE METER 149 mg/dL 70-110 H TESTED AT [facility] [address] (BEAKER) (test code = RAFIQ Russo [facility] 1538) [address] RAD, CHEST, 1 VIEW, NON [id number] 20:38:00Reason for exam:->SOBShould this be performed at the bedside?->YesFINAL REPORT History: Shortness of breath. Comparison: None. Findings: A single view of the chest is submitted. The cardiomediastinal contours are unremarkable. Retrocardiac opacity in the left lung may reflect atelectasis but pneumonitis should be excluded clinically. Thereis no pneumothorax, large pleural effusion, evidence of overt pulmonary edema or acute bony abnormality. Signed: Fede Juarez MDReport Verified Date/Time: 08/04/2018 20:38:15 Reading Location: [address] Reading Room TROPONIN [id number] 20:02:00 Test Item Value Reference Range Interpretation Comments TROPONIN I (BEAKER) (test code = 397) < ng/mL 0.00-0.03 POCT-GLUCOSE [id number] 19:55:00 Test Item Value Reference Range Interpretation Comments POC-GLUCOSE METER 99 mg/dL 70-110 TESTED AT [place] [address] ([facility]) (test code = [facility] [address] 1538) POCT-GLUCOSE [id number] 19:15:00 Test Item Value Reference Range Interpretation Comments POC-GLUCOSE METER 129 mg/dL 70-110 H TESTED AT [place] [address] ([facility]) (test code = [facility] 1538) [address] [id number] 18:38:00 Test Item Value Reference Range Interpretation Comments MAGNESIUM (BEAKER) 2.2 mg/dL 1.6-2.6 Specimen slightly (test code = 627) hemolyzed BASIC METABOLIC [id number] 18:38:00 Test Item Value Reference Range Interpretation Comments SODIUM (BEAKER) 139 meq/L 136-145 (test code = 381) POTASSIUM (BEAKER) 3.2 meq/L 3.5-5.1 L Specimen slightly (test code = 379) hemolyzed CHLORIDE (BEAKER) 108 meq/L 98-107 H (test code = 382) CO2 (BEAKER) (test 24 meq/L 22-29 code = 355) BLOOD UREA NITROGEN 14 mg/dL 7-21 (BEAKER) (test code = 354) CREATININE (BEAKER) 0.79 mg/dL 0.57-1.25 Specimen slightly (test code = 358) hemolyzed GLUCOSE RANDOM 94 mg/dL 70-105 (BEAKER) (test code = 652) CALCIUM (BEAKER) 8.8 mg/dL 8.4-10.2 (test code = 697) EGFR (BEAKER) (test 98 mL/min/1.73 ESTIMA GARLAND GFR IS code = 1092) sq m NOT ACCURATE CREATININE CLEARANCE IN PREDICTING GLOMERULAR FILTRATION RATE . ESTIMATED GFR I S NOT APPLICABLE FOR DIALYSIS PATIEN TS. PROTHROMBIN [id number] 18:12:00 Test Item Value Reference Range Interpretation Comments PROTIME (BEAKER) (test code = 16.1 seconds 11.7-14.7 H 759) INR (BEAKER) (test code = 370) 1.3 <=5.9 RECOMMENDED COUMADIN/WARFARIN INR THERAPY RANGESSTANDARD DOSE: 2.0 - 3.0 Includes: PROPHYLAXIS forvenous thrombosis, systemic embolization; TREATMENT for venous thrombosis and/or pulmonary embolus.HIGH RISK: Target INR is 2.5-3.5 for patients with mechanical heart valves.HEMOGLOBIN AND [id number] 18:05:00 Test Item Value Reference Range Interpretation Comments HEMOGLOBIN (BEAKER) (test code = 9.1 GM/DL 13.7-17.5 L 410) HEMATOCRIT (BEAKER) (test code = 28.1 % 40.1-51.0 L 411) POCT-LACTIC ACID, [id number] 17:59:00 Test Item Value Reference Range Interpretation Comments POC-LACTIC ACID, 2.0 mmol/L 0.9-1.7 H TESTED AT [facility] [address] (BEAKER) (test RAFIQ [place] code = 2805) [address] POCT-GLUCOSE [id number] 17:06:00 Test Item Value Reference Range Interpretation Comments POC-GLUCOSE METER 85 mg/dL 70-110 TESTED AT [facility] [address] (BEAKER) (test code = RAFIQ Russo [facility] [address] 1538) CBC W/PLT COUNT & AUTO [id number] 16:06:00 Test Item Value Reference Range Interpretation Comments WHITE BLOOD CELL COUNT (BEAKER) 3.7 K/ L 3.5-10.5 (test code = 775) RED BLOOD CELL COUNT (BEAKER) 2.81 M/ L 4.63-6.08 L (test code = 761) HEMOGLOBIN (BEAKER) (test code = 8.2 GM/DL 13.7-17.5 L 410) HEMATOCRIT (BEAKER) (test code = 25.5 % 40.1-51.0 L 411) MEAN CORPUSCULAR VOLUME (BEAKER) 90.7 fL 79.0-92.2 (test code = 753) MEAN CORPUSCULAR HEMOGLOBIN 29.2 pg 25.7-32.2 (BEAKER) (test code = 751) MEAN CORPUSCULAR HEMOGLOBIN CONC 32.2 GM/DL 32.3-36.5 L (BEAKER) (test code = 752) RED CELL DISTRIBUTION WIDTH 13.3 % 11.6-14.4 (BEAKER) (test code = 412) PLATELET COUNT (BEAKER) (test 263 K/CU MM 150-450 code = 756) MEAN PLATELET VOLUME (BEAKER) 8.1 fL 9.4-12.4 L (test code = 754) NUCLEATED RED BLOOD CELLS 0 /100 WBC 0-0 (BEAKER) (test code = 413) NEUTROPHILS RELATIVE PERCENT 53 % (BEAKER) (test code = 429) LYMPHOCYTES RELATIVE PERCENT 32 % (BEAKER) (test code = 430) MONOCYTES RELATIVE PERCENT 11 % (BEAKER) (test code = 431) EOSINOPHILS RELATIVE PERCENT 3 % (BEAKER) (test code = 432) BASOPHILS RELATIVE PERCENT 1 % (BEAKER) (test code = 437) NEUTROPHILS ABSOLUTE COUNT 1.96 K/ L 1.78-5.38 (BEAKER) (test code = 670) LYMPHOCYTES ABSOLUTE COUNT 1.20 K/ L 1.32-3.57 L (BEAKER) (test code = 414) MONOCYTES ABSOLUTE COUNT (BEAKER) 0.41 K/ L 0.30-0.82 (test code = 415) EOSINOPHILS ABSOLUTE COUNT 0.12 K/ L 0.04-0.54 (BEAKER) (test code = 416) BASOPHILS ABSOLUTE COUNT (BEAKER) 0.03 K/ L 0.01-0.08 (test code = 417) IMMATURE GRANULOCYTES-RELATIVE 0 % 0-1 PERCENT (BEAKER) (test code = 2801) POCT-GLUCOSE [id number] 11:55:00 Test Item Value Reference Range Interpretation Comments POC-GLUCOSE METER 350 mg/dL 70-110 H Notified R Bernie BELL/TESTED (BEAKER) (test code = AT [facility] [address]) [facility] 7[address] POCT-GLUCOSE [id number] 07:38:00 Test Item Value Reference Range Interpretation Comments POC-GLUCOSE METER 221 mg/dL 70-110 H TESTED AT [facility] [address] (BEAKER) (test code = RAFIQ [place] 1538) [address] [id number] 07:01:00 Test Item Value Reference Range Interpretation Comments MAGNESIUM (BEAKER) 2.2 mg/dL 1.6-2.6 Specimen slightly (test code = 627) hemolyzed [id number] 07:01:00 Test Item Value Reference Range Interpretation Comments PHOSPHORUS (BEAKER) 3.4 mg/dL 2.3-4.7 Specimen slightly (test code = 604) hemolyzed BASIC METABOLIC [id number] 07:01:00 Test Item Value Reference Range Interpretation Comments SODIUM (BEAKER) 138 meq/L 136-145 (test code = 381) POTASSIUM (BEAKER) 4.0 meq/L 3.5-5.1 Specimen slightly (test code = 379) hemolyzed CHLORIDE (BEAKER) 106 meq/L 98-107 (test code = 382) CO2 (BEAKER) (test 24 meq/L 22-29 code = 355) BLOOD UREA NITROGEN 20 mg/dL 7-21 (BEAKER) (test code = 354) CREATININE (BEAKER) 0.83 mg/dL 0.57-1.25 Specimen slightly (test code = 358) hemolyzed GLUCOSE RANDOM 197 mg/dL 70-105 H (BEAKER) (test code = 652) CALCIUM (BEAKER) 8.6 mg/dL 8.4-10.2 (test code = 697) EGFR (BEAKER) (test 93 mL/min/1.73 ESTIMA GARLAND GFR IS code = 1092) sq m NOT ACCURATE CREATININE CLEARANCE IN PREDICTING GLOMERULAR FILTRATION RATE . ESTIMATED GFR I S NOT APPLICABLE FOR DIALYSIS PATIEN TS. HEPATIC FUNCTION [id number] 07:01:00 Test Item Value Reference Range Interpretation Comments TOTAL PROTEIN (BEAKER) 6.3 gm/dL 6.0-8.3 Speci men slightly (test code = 770) hemolyzed ALBUMIN (BEAKER) (test 3.7 g/dL 3.5-5.0 Speci men slightly code = 1145) hemolyzed BILIRUBIN TOTAL 0.5 mg/dL 0.2-1.2 Specimen sli ghtly (BEAKER) (test code = hemoly zed 377) BILIRUBIN DIRECT 0.2 mg/dL 0.1-0.5 Specimen sl ightly (BEAKER) (test code = hemoly zed 706) ALKALINE PHOSPHATASE 61 U/L 40-150 (BEAKER) (test code = 346) AST (SGOT) (BEAKER) 23 U/L 5-34 Specimen slightly (test code = 353) hemolyzed ALT (SGPT) (BEAKER) 21 U/L 6-55 Specimen slightly (test code = 347) hemolyzed HEMOGLOBIN AND [id number] 06:32:00 Test Item Value Reference Range Interpretation Comments HEMOGLOBIN (BEAKER) (test code = 9.2 GM/DL 13.7-17.5 L 410) HEMATOCRIT (BEAKER) (test code = 28.1 % 40.1-51.0 L 411) [id number] 02:43:00 Test Item Value Reference Range Interpretation Comments FERRITIN (BEAKER) (test code = 361) 164 ng/mL 5-275 VITAMIN B12 AND [id number] 02:43:00 Test Item Value Reference Range Interpretation Comments VITAMIN B12 (BEAKER) (test code = 659 pg/mL 213-816 774) FOLATE (BEAKER) (test code = 362) 11.1 ng/mL >=7.0 IRON, TIBC, % SAT. (WITHOUT FERRITIN)2018-08-04 02:08:00 Test Item Value Reference Range Interpretation Comments IRON (BEAKER) (test code = 547) 56 ug/dL 40-160 TOTAL IRON BINDING CAPACITY 319 ug/dL 250-450 (BEAKER) (test code = 769) IRON % SATURATION (2) (BEAKER) 18 % 20-55 L (test code = 2590) COMPREHENSIVE METABOLIC [id number] 00:56:00 Test Item Value Reference Range Interpretation Comments TOTAL PROTEIN 6.7 gm/dL 6.0-8.3 (BEAKER) (test code = 770) ALBUMIN (BEAKER) 4.1 g/dL 3.5-5.0 (test code = 1145) ALKALINE PHOSPHATASE 67 U/L 40-150 (BEAKER) (test code = 346) BILIRUBIN TOTAL 0.6 mg/dL 0.2-1.2 (BEAKER) (test code = 377) SODIUM (BEAKER) (test 138 meq/L 136-145 code = 381) POTASSIUM (BEAKER) 3.3 meq/L 3.5-5.1 L (test code = 379) CHLORIDE (BEAKER) 104 meq/L 98-107 (test code = 382) CO2 (BEAKER) (test 25 meq/L 22-29 code = 355) BLOOD UREA NITROGEN 23 mg/dL 7-21 H (BEAKER) (test code = 354) CREATININE (BEAKER) 0.92 mg/dL 0.57-1.25 (test code = 358) GLUCOSE RANDOM 196 mg/dL 70-105 H (BEAKER) (test code = 652) CALCIUM (BEAKER) 8.8 mg/dL 8.4-10.2 (test code = 697) AST (SGOT) (BEAKER) 19 U/L 5-34 (test code = 353) ALT (SGPT) (BEAKER) 23 U/L 6-55 (test code = 347) EGFR (BEAKER) (test 82 mL/min/1.73 ESTIMA GARLAND GFR IS code = 1092) sq m NOT ACCURATE CREATININE CLEARANCE IN PREDICTING GLOMERULAR FILTRATION RATE . ESTIMATED GFR I S NOT APPLICABLE FOR DIALYSIS PATIEN TS. PROTHROMBIN [id number] 00:50:00 Test Item Value Reference Range Interpretation Comments PROTIME (BEAKER) (test code = 15.6 seconds 11.7-14.7 H 759) INR (BEAKER) (test code = 370) 1.2 <=5.9 RECOMMENDED COUMADIN/WARFARIN INR THERAPY RANGESSTANDARD DOSE: 2.0 - 3.0 Includes: PROPHYLAXIS forvenous thrombosis, systemic embolization; TREATMENT for venous thrombosis and/or pulmonary embolus.HIGH RISK: Target INR is 2.5-3.5 for patients with mechanical heart valves.CBC W/PLT COUNT & AUTO DIFFERENTIAL 2018-08-04 00:35:00 Test Item Value Reference Range Interpretation Comments WHITE BLOOD CELL COUNT (BEAKER) 6.1 K/ L 3.5-10.5 (test code = 775) RED BLOOD CELL COUNT (BEAKER) 3.24 M/ L 4.63-6.08 L (test code = 761) HEMOGLOBIN (BEAKER) (test code = 9.3 GM/DL 13.7-17.5 L 410) HEMATOCRIT (BEAKER) (test code = 29.6 % 40.1-51.0 L 411) MEAN CORPUSCULAR VOLUME (BEAKER) 91.4 fL 79.0-92.2 (test code = 753) MEAN CORPUSCULAR HEMOGLOBIN 28.7 pg 25.7-32.2 (BEAKER) (test code = 751) MEAN CORPUSCULAR HEMOGLOBIN CONC 31.4 GM/DL 32.3-36.5 L (BEAKER) (test code = 752) RED CELL DISTRIBUTION WIDTH 13.6 % 11.6-14.4 (BEAKER) (test code = 412) PLATELET COUNT (BEAKER) (test 313 K/CU MM 150-450 code = 756) MEAN PLATELET VOLUME (BEAKER) 8.0 fL 9.4-12.4 L (test code = 754) NUCLEATED RED BLOOD CELLS 0 /100 WBC 0-0 (BEAKER) (test code = 413) NEUTROPHILS RELATIVE PERCENT 69 % (BEAKER) (test code = 429) LYMPHOCYTES RELATIVE PERCENT 21 % (BEAKER) (test code = 430) MONOCYTES RELATIVE PERCENT 7 % (BEAKER) (test code = 431) EOSINOPHILS RELATIVE PERCENT 3 % (BEAKER) (test code = 432) BASOPHILS RELATIVE PERCENT 1 % (BEAKER) (test code = 437) NEUTROPHILS ABSOLUTE COUNT 4.21 K/ L 1.78-5.38 (BEAKER) (test code = 670) LYMPHOCYTES ABSOLUTE COUNT 1.26 K/ L 1.32-3.57 L (BEAKER) (test code = 414) MONOCYTES ABSOLUTE COUNT (BEAKER) 0.42 K/ L 0.30-0.82 (test code = 415) EOSINOPHILS ABSOLUTE COUNT 0.15 K/ L 0.04-0.54 (BEAKER) (test code = 416) BASOPHILS ABSOLUTE COUNT (BEAKER) 0.03 K/ L 0.01-0.08 (test code = 417) IMMATURE GRANULOCYTES-RELATIVE 0 % 0-1 PERCENT (BEAKER) (test code = 2801) POCT-GLUCOSE [id number] 23:55:00 Test Item Value Reference Range Interpretation Comments POC-GLUCOSE METER 245 mg/dL 70-110 H TESTED AT [facility] ([facility]) (test code = RAFIQ PADILLA 1538) [id number]
--- OUTSIDE RECORDS SUMMARY | 2020-05-29 15:33 | XMS REPORT ---
:1950 Author Organization eClinicalWorks Care Team Providers Name Role Phone [facility] Provider Role Unavailable Allergies, Adverse Reactions, Alerts Substance Reaction Event Type N.K.D.A. Info Not Available Non Drug Allergy Problems Problem Type Condition Code Onset Dates Condition Statu s Assessment Essential hypertension I10 Activ e Assessment Asymptomatic hypertensive urgency I16.0 Active Assessment Type 2 diabetes mellitus with E11.65 Active hyperglycemia, without long-term current use of insulin Assessment Excessive use of nonsteroidal F19.90 Active anti-inflammatory drug (NSAID) Assessment Osteoarthritis of multiple joints, M15.9 Active unspecified osteoarthritis type Assessment GERD without esophagitis K21.9 Act pauline Assessment Mixed hyperlipidemia E78.2 Active Problem Mixed hyperlipidemia E78.2 Active Problem GERD without esophagitis K21.9 Act pauline Problem Essential hypertension I10 Activ e Problem Asymptomatic hypertensive urgency I16.0 Active Problem Osteoarthritis of multiple joints, M15.9 Active unspecified osteoarthritis type Problem Type 2 diabetes mellitus with E11.65 Active hyperglycemia, without long-term current use of insulin Medications Medication Code Code Instructions Start End Status Dosage System Date Date MetFORMIN HCl ND 39021220255 500 MG Orally May 14, Active 2 tablets ER BID 2019 with meal Diclofenac ND 70262682142 75 MG Orally Active 1 ta blet Sodium Twice a day Victoza ND 19851283261 18 MG/3ML Active as Subcutaneous directed Metformin HCl ND 74196723634 500 MG Orally Inactive 1 tablet Once a day with a meal Pantoprazole ND 70316729309 40 MG Orally Active 1 tablet Sodium Once a day Simvastatin ND 72585534247 40 MG Orally Active 1 t ablet Once a day in the evening Lisinopril-Hydr ND 01128215008 20-25 MG Orally May 14, Act pauline 1 tablet ochlorothiazide Once a day 2019 Lisinopril ND 24024940818 20 MG Orally Inactive 1 t ablet Once a day Results No Known Results Summary Purpose eClinicalWorks Submission
--- OUTSIDE RECORDS SUMMARY | 2020-05-29 15:33 | XMS REPORT | Clinical Summary ---
:1950 Author Organization [facility] Address [address] [place] [address] Care Team Providers Name Role Phone Justice Moulton Primary Care Provider Allergies No Known Allergies Medications Medication Sig Dispensed Refills Start Date End Date Status VICTOZA 2-YAQUELIN 0.6 Inject 1.2 mg 1 07/05/2018 Active mg/0.1 mL (18 mg/3 subcutaneously daily. mL) PnIj lisinopril Take 20 mg by mouth 1 06/20/2018 Active (PRINIVIL,ZESTRIL) every 12 (twelve) 20 MG tablet hours. metFORMIN Take 500 mg by mouth 0 Active (GLUCOPHAGE) 500 MG 2 (two) times daily tablet with breakfast and dinner. simvastatin (ZOCOR) Take 40 mg by mouth 0 Active 40 MG tablet nightly. Active Problems Problem Noted Date Gastric ulcer 08/05/2018 Sigmoid diverticulosis 08/05/2018 Type 2 diabetes mellitus without complication, without long-term current 08/04/2018 use of insulin Social History Tobacco Use Types Packs/Day Years Used Date Never Smoker Smokeless Tobacco: Never Used Alcohol Use Drinks/Week oz/Week Comments Yes Patient stated h e quit drinking a week ago Alcohol Habits Answer Date Recorded How often do you have a drink containing 4 or more times a w [place] [employer] [place] 08/04/2018 alcohol? How many drinks containing alcohol do you have 5 or 6 08/04/2018 on a typical day when you are drinking? How often do you have six or more drinks on one Daily or dl ost daily 08/04/2018 occasion? Sex Assigned at Date Recorded Not on file Job Start Date Occupation Industry Not on file Not on file Not on file Travel History Travel Start Travel End No recent travel history available. Last Filed Vital Signs Not on file Plan of Treatment Not on file Results Not on fileafter 05/29/2019 Insurance Payer Benefit Plan / Group Subscriber ID Type Phone A ddress MEDICARE MEDICARE A B xxxxxxxxxxx Medicare MEDICAID MEDICAID [facility] xxxxxxxxx Medicaid Advance Directives For more information, please contact:[facility] [facility], [place] [phone] Code Status Date Activated Date Inactivated Comments Full Code 08/04/2018 12:14 AM This code status was determined by: Patient
[2020-05-29 16:41] LABS: Absolute Lymphocytes (CBC) 1.4 K/uL (0.7-4.9); Basophils % 0.5 % (0-1.3); Lymphocytes % 17.9 % (15.3-44.8); MPV 7.2 fL (7.6-11.3); RBC Red Blood Cell Count 4.59 M/uL (4.33-5.43)
[2020-05-29 16:46] LABS: Protime INR 1.06
[2020-05-29] MEDS ORDERED: NA CHLORIDE 0.9% 500 ML ONE (16:50)
--- NOTE | 2020-05-29 16:50 | RAD REPORT ---
EXAM DESCRIPTION: Akila Single View05/29/2020 4:27 pm CLINICAL HISTORY: Chest pain COMPARISON: 2017 FINDINGS: The lungs appear clear of acute infiltrate. The heart is normal size IMPRESSION: No acute abnormalities displayed
[2020-05-29 17:00] LABS: BUN Blood Urea Nitrogen 20 mg/dL (7-18); Bicarbonate 22 mmol/L (21-32); Creatine Phosphokinase 71 U/L (39-308); Glucose Level 227 mg/dL (74-106); NT PRO-BNP 1038 pg/mL (<125); Potassium 3.8 mmol/L (3.5-5.1); Sodium Level 134 mmol/L (136-145); Troponin (Emerg Dept Use Only) < 0.02 ng/mL (0.0-0.045)
--- NOTE | 2020-05-29 17:25 | ER ---
Nurse's Notes [facility] Name: Anthony Rooney Age: 69 yrs Sex: Male : 1950 Arrival Date: 05/29/2020 Time: 15:35 Bed 14 Private MD: Diagnosis: Dyspnea, unspecified;Chest pain, unspecified;Syncope and collapse Presentation: 05/29 15:39 Chief complaint: Patient states: Cough for 1 week. Started to have N/V, dizziness, and ll1 chest pain today after working in the yard. No fever. Left leg pain and decreased circulation for 1 week. States blood sugar has been in the 400-500's for 1 week. Taking his medications as prescribed. Coronavirus screen: Client denies travel out of the [place] in the last 14 days. cough unrelated to allergies, difficulty breathing, Client presents with at least one sign or symptom that may indicate coronavirus-19. Standard/surgical mask placed on the client. Ebola Screen: Patient denies travel to an Ebola-affected area in the 21 days before illness onset. Initial Sepsis Screen: Does the patient meet any 2 criteria? No. Patient's initial sepsis screen is negative. Risk Assessment: Do you want to hurt yourself or someone else? Patient reports no desire to harm self or others. Onset of symptoms was May 22, 2020. 15:39 Method Of Arrival: Ambulatory ll1 15:39 Acuity: NAE 2 ll1 16:09 Initial Sepsis Screen: Does the patient have a suspected source of infection? No. ls4 Patient's initial sepsis screen is negative. Triage Assessment: 16:46 General: Appears in no apparent distress. comfortable, Behavior is calm, cooperative. ls4 Pain: Complains of pain in mid-sternal area. Historical: - Allergies: 15:43 No Known Allergies; ll1 - PMHx: 15:43 Diabetes - IDDM; High Cholesterol; Hypertension; Ulcers; ll1 - PSHx: 15:43 colonscopy/EGD; ll1 - Immunization history:: Flu vaccine is not up to date. - Social history:: Smoking status: Patient denies any tobacco usage or history of. Patient uses alcohol, on a daily basis. Patient/guardian denies using street drugs, IV drugs. - Family history:: not pertinent. - Hospitalizations: : No recent hospitalization is reported. Screenin:07 Abuse screen: Denies threats or abuse. Denies injuries from another. Nutritional ls4 screening: No deficits noted. Tuberculosis screening: No symptoms or risk factors identified. Fall Risk None identified. Assessment: 16:06 Cardiovascular: Rhythm is sinus rhythm with unifocal PVCs. ls4 16:30 Pain:. ls4 18:52 Reassessment: Patient appears in no apparent distress at this time. Patient and/or ls4 family updated on plan of care and expected duration. Pain level reassessed. Patient is alert, oriented x 3, equal unlabored respirations, skin warm/dry/pink. CALLED TO GIVE REPORT. DONOVAN ANSWRED PHONE, ISA WILL BE NURSE AND WILL CALL BACK Patient states symptoms have improved. Pain: Pain does not radiate. Pain began LAST TWO WEEKS. 20:33 Reassessment: Patient appears in no apparent distress at this time. Patient and/or ls4 family updated on plan of care and expected duration. Pain level reassessed. Patient is alert, oriented x 3, equal unlabored respirations, skin warm/dry/pink. Vital Signs: 15:39 BP 188 / 94; Pulse 55; Resp 18; Temp 98.4; Pulse Ox 100% ; Pain 5/10; ll1 20:31 BP 171 / 90; Pulse 79; Resp 17; Pulse Ox 99% on R/A; ls4 ED Course: 15:35 Patient arrived in ED. ds1 15:41 Triage completed. ll1 15:43 Arm band placed on Patient placed in an exam room, on a stretcher. ll1 15:46 Yogesh Pacheco MD is Attending Physician. rn 15:50 Stanislaw Espinoza RN is Primary Nurse. jl7 16:05 No provider procedures requiring assistance completed. EKG done, by ED staff, reviewed ls4 by Yogesh Pacheco MD. Patient maintains SpO2 saturation greater than 95% on room air. 16:08 Patient has correct armband on for positive identification. Bed in low position. Call ls4 light in reach. Side rails up X 1. monitoring analyst on. Pulse ox on. NIBP on. Verbal reassurance given. 16:13 Warm blanket given. jp3 16:24 XRAY Chest (1 view) Sent. ls4 16:25 Initial lab(s) drawn, by me, sent to lab. Inserted saline lock: 18 gauge in right ls4 forearm, using aseptic technique. Blood collected. 16:27 XRAY Chest (1 view) In Process Unspecified. EDMS 17:23 Сергей Noonan DO is Hospitalizing Provider. rn 20:34 intact, bleeding controlled, No redness/swelling at site. Pressure dressing applied. ls4 Administered Medications: 16:46 Drug: NS 0.9% 500 ml Route: IV; Rate: bolus; Site: right forearm; ls4 19:48 Follow up: IV Status: Completed infusion; IV Intake: 500ml ls4 20:07 Drug: Metoprolol 5 mg Route: IVP; Site: right forearm; ls4 20:32 Follow up: Response: No adverse reaction; Marked relief of symptoms ls4 Intake: 19:48 IV: 500ml; Total: 500ml. ls4 Outcome: 17:24 Decision to Hospitalize by Provider. rn 20:33 Admitted to Tele accompanied by tech, via wheelchair, on monitor, with chart, Report ls4 called to Isa. RN 20:33 Condition: stable ls4 20:33 Discharge instructions given to patient, Instructed on the need for admit. 20:34 Patient left the ED. ls4 Signatures: Dispatcher [employer] EDFL Julio Mariela ds1 Yogesh Pacheco MD MD rn Leal, Jahala, RN RN jl7 Gonzalez Khan jp3 Jaz Siegel RN RN ls4 Cinthya Foley RN RN ll1
--- NOTE | 2020-05-29 17:25 | EDPHYS ---
Physician Documentation [facility] Name: Anthony Rooney Age: 69 yrs Sex: Male : 1950 Arrival Date: 05/29/2020 Time: 15:35 Bed 14 Private MD: ED Physician Yogesh Pacheco HPI: 05/29 17:16 This 69 yrs old Male presents to ER via Ambulatory with complaints of rn Dizziness,sob, chest pain, syncope. 17:16 The patient has shortness of breath with light activity. Onset: The symptoms/episode rn began/occurred 3 week(s) ago. Duration: The symptoms are intermittent. The patient's shortness of breath is aggravated by exertion, light activity, supine position. Severity of symptoms: At their worst the symptoms were moderate in the emergency department the symptoms are unchanged. The patient has not experienced similar symptoms in the past. Reports 3 weeks of progressive dyspnea, worse with exertion, sleeping upright lately, + intermittent chest pain, + 2 syncopal episodes while working outside. No fever/cough.. Historical: - Allergies: 15:43 No Known Allergies; ll1 - PMHx: 15:43 Diabetes - IDDM; High Cholesterol; Hypertension; Ulcers; ll1 - PSHx: 15:43 colonscopy/EGD; ll1 - Immunization history:: Flu vaccine is not up to date. - Social history:: Smoking status: Patient denies any tobacco usage or history of. Patient uses alcohol, on a daily basis. Patient/guardian denies using street drugs, IV drugs. - Family history:: not pertinent. - Hospitalizations: : No recent hospitalization is reported. ROS: 17:16 Constitutional: Negative for fever, chills, and weight loss, Eyes: Negative for injury, rn pain, redness, and discharge, Cardiovascular: Negative for palpitations, and edema, Respiratory: Negative for wheezing, and pleuritic chest pain, Abdomen/GI: Negative for abdominal pain, nausea, vomiting, diarrhea, and constipation, MS/Extremity: Negative for injury and deformity, Skin: Negative for injury, rash, and discoloration, Neuro: Negative for headache, numbness, tingling, and seizure. Exam: 17:16 Constitutional: This is a well developed, well nourished patient who is awake, alert, rn and in no acute distress. Head/Face: Normocephalic, atraumatic. ENT: dry MM Cardiovascular: Irregular, normal rate Respiratory: + mild tachypnea, no retractions Abdomen/GI: Soft, non-tender 17:29 ECG was reviewed by the Attending Physician. rn Vital Signs: 15:39 BP 188 / 94; Pulse 55; Resp 18; Temp 98.4; Pulse Ox 100% ; Pain 5/10; ll1 20:31 BP 171 / 90; Pulse 79; Resp 17; Pulse Ox 99% on R/A; ls4 MDM: 15:46 Patient medically screened. rn 17:19 Differential diagnosis: Anemia Bronchitis CHF exacerbation, pneumonia, Pneumothorax rn pulmonary edema. Data reviewed: vital signs, nurses notes, lab test result(s), EKG, radiologic studies, plain films, and as a result, I will admit patient. Counseling: I had a detailed discussion with the patient and/or guardian regarding: the historical points, exam findings, and any diagnostic results supporting the discharge/admit diagnosis, lab results, radiology results, the need for further work-up and treatment in the hospital. Response to treatment: the patient's symptoms have mildly improved after treatment, and as a result, I will admit patient. Admission orders: after a detailed discussion of the patient's condition and case, the admit orders are written by me. ED course: Pt with mild hyperglycemia, clinically dry, gives story of possible CHF with exertional dyspnea and syncope, will admit to Dr. Noonan for further care/ECHO and cardiology consult. . 05/29 16:05 Order name: BMP; Complete Time: 19:05/29 16:05 Order name: CBC with Diff; Complete Time: 16:57 05/29 16:05 Order name: CPK; Complete Time: 19:05/29 16:05 Order name: NT PRO-BNP; Complete Time: 19:05/29 16:05 Order name: PT-INR; Complete Time: 16:57 05/29 16:05 Order name: Ptt, Activated; Complete Time: 16:57 05/29 15:47 Order name: XRAY Chest (1 view); Complete Time: 16:57 05/29 15:47 Order name: EKG; Complete Time: 15:48 05/29 16:05 Order name: Troponin (emerg Dept Use Only); Complete Time: 19:01 rn 05/29 16:05 Order name: Procalcitonin; Complete Time: 18:04 rn 05/29 16:05 Order name: Ketone, Serum; Complete Time: 19:01 rn 05/29 16:34 Order name: Glucose, Ancillary Testing; Complete Time: 16:57 EDMS 05/29 15:47 Order name: EKG - Nurse/Tech; Complete Time: 16:05 rn 05/29 16:05 Order name: Cardiac monitoring; Complete Time: 16:24 rn 05/29 16:05 Order name: IV Saline Lock; Complete Time: 16:24 rn 05/29 16:05 Order name: Labs collected and sent; Complete Time: 16:24 rn 05/29 16:05 Order name: O2 Per Protocol; Complete Time: 16:24 rn 05/29 16:05 Order name: O2 Sat Monitoring; Complete Time: 16:24 rn 05/29 16:05 Order name: Glucose Level; Complete Time: 16:24 rn EC:29 Rate is 92 beats/min. Rhythm is irregular. QRS [place] is Normal. VA interval is normal. rn QRS interval is normal. QT interval is normal. No Q waves. T waves are Normal. No ST changes noted. Clinical impression: NSR w/ Non-specific ST/T Changes and Frequent PVCs. Interpreted by me. Reviewed by me. Administered Medications: 16:46 Drug: NS 0.9% 500 ml Route: IV; Rate: bolus; Site: right forearm; ls4 19:48 Follow up: IV Status: Completed infusion; IV Intake: 500ml ls4 20:07 Drug: Metoprolol 5 mg Route: IVP; Site: right forearm; ls4 20:32 Follow up: Response: No adverse reaction; Marked relief of symptoms ls4 Disposition: 05/29/20 17:24 Hospitalization ordered by Сергей Noonan for Observation. Preliminary diagnosis are Dyspnea, unspecified, Chest pain, unspecified, Syncope and collapse. - Bed requested for Telemetry/MedSurg (observation). - Status is Observation. ls4 - Condition is Stable. - Problem is new. - Symptoms have improved. Signatures: Dispatcher [employer] EDMS Bee Foley RN RN kl Nieto, Roman, MD MD rn Attema, Lee, RESEARCH LEADER-C RESEARCH LEADER-Cla1 Jaz Siegel, RN RN ls4 Cinthya Foley RN RN ll1 Corrections: (The following items were deleted from the chart) 18:05 17:24 Hospitalization Ordered by Сергей Noonan DO for Observation. Preliminary kl diagnosis is Dyspnea, unspecified; Chest pain, unspecified; Syncope and collapse. Bed requested for Telemetry/MedSurg (observation). Status is Observation. Condition is Stable. Problem is new. Symptoms have improved. rn 20:34 18:05 05/29/2020 17:24 Hospitalization Ordered by Сергей Noonan DO for Observation. ls4 Preliminary diagnosis is Dyspnea, unspecified; Chest pain, unspecified; Syncope and collapse. Bed requested for Telemetry/MedSurg (observation). Status is Observation. Condition is Stable. Problem is new. Symptoms have improved. kl
--- NOTE | 2020-05-29 20:07 | P.HP ---
Certification for Inpatient Patient admitted to: Observation With expected LOS: <2 Midnights Patient will require the following post-hospital care: None Practitioner: I am a practitioner with admitting privileges, knowledge of patient current condition, hospital course, and medical plan of care. Services: Services provided to patient in accordance with Admission requirements found in Title 42 Section 412.3 of the Code of Federal Regulations <Hilario Alonzo - Last Filed: 05/29/20 20:08> Patient admitted to: Observation With expected LOS: <2 Midnights <Сергей Noonan - Last Filed: 05/30/20 09:56> Patient History Date of Service: 05/29/20 Primary Care Provider: Dr. Mueller Reason for admission: Chest pain History of Present Illness: 61-year-old male with history of hypertension, hyperlipidemia, diabetes mellitus type 2 presents emergency department for chest pain. Patient reports that he is outside working when he began to have chest pain and headache. Patient reports she is still having some mild chest discomfort but that has improved. Patient evaluated in the emergency department found to have normal chest x-ray, troponin levels within normal limits at this time. Slightly elevated BNP. Patient with frequent PVCs on telemetry. ED provider wishes to admit patient for further evaluation and management. When I saw the patient in emergency department he was awake, alert, oriented x4. Patient in no distress. Patient be admitted for further evaluation and management. - Past Medical/Surgical History Diabetic: No -: Diabetes mellitus type 2 -: Hypertension -: Hyperlipidemia -: None Psychosocial/ Personal History: Patient lives at home with his and is retired - Social History Smoking Status: Never smoker Alcohol use: Yes CD- Drugs: No Caffeine use: Yes Place of Residence: Home <Hilario Alonzo - Last Filed: 05/29/20 20:08> Date of Service: 05/30/20 Home medications list reviewed: Yes - Family History Family History: Reviewed- Non-Contributory <Сергей Noonan - Last Filed: 05/30/20 09:56> Allergies No Known Allergies Allergy (Verified 05/30/20 01:57) Home Medications: Aspirin [Aspirin EC 81 MG] 81 mg PO DAILY #90 tablet. 02/10/17 Metformin HCl [Glucophage*] 500 mg PO BIDWM #60 tab 02/10/17 Insulin Detemir [Levemir Flextouch] 15 unit SQ BEDTIME #1 juany 05/30/20 Lisinopril [Zestril] 20 mg PO BID #60 tablet 05/30/20 Metoprolol Tartrate 50 mg PO BID #60 tablet 05/30/20 Review of Systems 10-point ROS is otherwise unremarkable Cardiovascular: Chest Pain Neurological: Other (Headache) <Hilario Alonzo - Last Filed: 05/29/20 20:08> Physical Examination - Physical Exam General: Alert, In no apparent distress HEENT: Atraumatic, PERRLA, Mucous membr. moist/pink Neck: Supple, 2+ carotid pulse no bruit, No LAD Respiratory: Clear to auscultation bilaterally, Normal air movement Cardiovascular: Regular rate/rhythm, Normal S1 S2 Gastrointestinal: Normal bowel sounds, No tenderness Musculoskeletal: No tenderness Integumentary: No rashes Neurological: Normal gait, Normal speech, Normal strength at 5/5 x4 extr, Normal tone, Normal affect Lymphatics: No axilla or inguinal lymphadenopathy - Studies Laboratory Data (last 24 hrs) 05/29/20 16:22: PT 12.5, INR 1.06, APTT 31.4 05/29/20 16:22: WBC 8.0, Hgb 13.7, Hct 40.0, Plt Count 313 05/29/20 16:22: Sodium 134 L, Potassium 3.8, BUN 20 H, Creatinine 1.08, Glucose 227 H <Hilario Alonzo - Last Filed: 05/29/20 20:08> - Studies Laboratory Data (last 24 hrs) 05/29/20 16:22: PT 12.5, INR 1.06, APTT 31.4 05/29/20 16:22: WBC 8.0, Hgb 13.7, Hct 40.0, Plt Count 313 05/29/20 16:22: Sodium 134 L, Potassium 3.8, BUN 20 H, Creatinine 1.08, Glucose 227 H <Сергей Noonan - Last Filed: 05/30/20 09:56> Assessment and Plan - Plan Assessment Chest pain rule out ACS Diabetes mellitus type 2-insulin dependent Hypertension Hyperlipidemia Plan Chest pain rule out ACS: Cardiology has been consulted, will trend troponins. Patient remain on telemetry throughout this hospitalization. Will continue with patient's current blood pressure medications, daily aspirin, statin. Appreciate further input from cardiology. DVT prophylaxis Lovenox 40 mg subcutaneous once daily. Diabetes mellitus type 2-insulin dependent: A.c. HS Accu-Cheks insulin therapy, also continue with Lantus. Hypertension: Continue with metoprolol, lisinopril at this time. P.r.n. medications. Hyperlipidemia: Statin therapy in place. Discharge Plan: Home Plan to discharge in: 24 Hours - Advance Directives Does patient have a Living Will: No Does patient have a Durable POA for Healthcare: No - Code Status/Comfort Care Code Status Assessed: Yes (Patient is full code) Critical Care: No Time Spent Managing Pts Care (In Minutes): 55 <Hilario Alonzo - Last Filed: 05/29/20 20:08> - Plan Discuss with Hilario Alonzo NP. Agree with evaluation and plan of care. Cardiac enzymes unremarkable. Case discussed with cardiology. Cardiology recommends further cardiac workup as an outpatient including cardiac stress test. Medications have been adjusted for better diabetic and hypertensive control. Please see discharge orders and summary for details. <Сергей Noonan - Last Filed: 05/30/20 09:56>
[2020-05-29] MEDS ORDERED: METOPROLOL TARTRATE 5 MG/5 ML INJ IV ONE (20:18)
[2020-05-29] MEDS ORDERED: ACETAMINOPHEN 500 MG TAB PO PRN (20:56)
[2020-05-29] MEDS ORDERED: D50W 25 GM/50 ML SYRINGE/VIAL IV PRN (20:56)
[2020-05-29] MEDS ORDERED: METOPROLOL TAR 25 MG TAB PO SCH (20:56)
[2020-05-29] MEDS ORDERED: GLUCAGON 1 MG/VIAL IM PRN (20:56)
[2020-05-29] MEDS ORDERED: ONDANSETRON 4 MG/2 ML VIAL IV PRN (20:56)
[2020-05-29] MEDS ORDERED: ATORVASTATIN 40 MG TAB PO SCH (21:00)
[2020-05-29] MEDS ORDERED: INSULIN GLARGINE 100 UNITS/ML SQ SCH (21:00)
[2020-05-29] MEDS: lisinopriL 10 MG TAB PO SCH (21:40)
[2020-05-29 21:41] LABS: CKMB Creatine Kinase MB < 1.0 ng/mL (0.3-3.6); Creatine Phosphokinase 59 U/L (39-308); Troponin I 0.02 ng/mL (0.0-0.045)
[2020-05-29] MEDS: INSULIN -REGULAR HUMAN 50 UNIT/0.5 ML ML SQ SCH (21:41)
[2020-05-29 21:43] VITALS: BMI 27.5
[2020-05-30] MEDS ORDERED: HYDRALAZINE HCL 20 MG/ML VIAL IV PRN (00:01)
[2020-05-30 04:12] LABS: Absolute Lymphocytes (CBC) 2.1 K/uL (0.7-4.9); Hematocrit 39.7 % (39.6-49.0); Lymphocytes % 32.7 % (15.3-44.8); MPV 7.5 fL (7.6-11.3); RBC Red Blood Cell Count 4.54 M/uL (4.33-5.43)
[2020-05-30 04:36] LABS: BUN Blood Urea Nitrogen 20 mg/dL (7-18); Bicarbonate 27 mmol/L (21-32); CKMB Creatine Kinase MB 1.1 ng/mL (0.3-3.6); Creatine Phosphokinase 54 U/L (39-308); Glucose Level 180 mg/dL (74-106); Magnesium 2.3 mg/dL (1.8-2.4); Potassium 3.7 mmol/L (3.5-5.1); Sodium Level 139 mmol/L (136-145); Troponin I 0.02 ng/mL (0.0-0.045)
[2020-05-30] MEDS ORDERED: METOPROLOL TAR 25 MG TAB PO SCH (06:00)
[2020-05-30 06:33] LABS: Urine Appearance CLEAR; Urine Bilirubin NEGATIVE (NEG); Urine Blood NEGATIVE (NEG); Urine Color YELLOW; Urine Glucose 1+ (NEG); Urine Protein 1+ (NEG); Urine Specific Gravity 1.015 (1.005-1.030); Urine Urobilinogen 0.2 mg/dL (0.2-1.0); Urine pH 6.5 (5.0-7.0)
[2020-05-30 06:38] LABS: Urine Microscopic Reflex ORDER UMIC
[2020-05-30 06:53] LABS: Urine Bacteria NONE SEEN /HPF (NONE SEEN); Urine Culture Reflex Order NOT NEEDED; Urine Urothelial Cells <5 /HPF (NONE SEEN)
[2020-05-30] MEDS: lisinopriL 10 MG TAB PO SCH (08:05)
[2020-05-30 08:06] VITALS: BP 197/93
[2020-05-30] MEDS ORDERED: ENOXAPARIN 40 MG/0.4 ML SQ SCH (09:00)
[2020-05-30] MEDS ORDERED: ASPIRIN EC 81 MG TAB PO SCH (09:00)
[2020-05-30] MEDS ORDERED: FUROSEMIDE 20 MG/ 2ML VIAL IV SCH (09:00)
[2020-05-30 09:17] VITALS: TEMP 98.3; O2SAT 97
[2020-05-30] MEDS: INSULIN -REGULAR HUMAN 50 UNIT/0.5 ML ML SQ SCH (09:33)
--- NOTE | 2020-05-30 09:41 | P.DS ---
Admission Date: 05/29/20 Discharge Date: 05/30/20 Primary Care Provider: Dr. Mueller Disposition: ROUTINE DISCHARGE Discharge Condition: GOOD Reason for Admission: Chest pain Consultations: Cardiology-Dr. Murguia Procedures: CXR: Unremarkable Medical Problem List: Chest pain, atypical Diabetes mellitus type 2-insulin dependent with Hyperglycemia Hypertension, uncontrolled Suspect underlying obstructive sleep apnea Brief History of Present Illness: 69-year-old male with history of hypertension, hyperlipidemia, diabetes. Patient presented with chest pain. Patient reported chest pain to the substernal region. It was associated with some headache and shortness of breath. Patient admits working outside over the past several days. He was working yesterday and digging out a tree. He began to have shortness of breath. Patient was evaluated in the emergency room. Initial chest x-ray and cardiac enzymes unremarkable. Due to his risk factors patient was admitted for observation. Blood sugar found to be significantly elevated. Hospital Course: Patient presented with chest pain and shortness of breath. Patient was admitted for further evaluation and treatment. Cardiac enzymes unremarkable. Patient was seen by Cardiology. Echocardiogram performed. Blood pressures and blood sugars were elevated. Patient required additional medication for better control. No further cardiac intervention needed at this time. Chest x-ray unremarkable. Lipid panel within normal range. At discharge no significant chest pain or shortness of breath. Cardiology recommends the patient to follow up in 1-2 weeks for outpatient cardiac stress test. Cardiology also recommends better control of hypertension. At discharge lisinopril and metoprolol were increased. At discharge he will continue with lisinopril 20 mg 1 pill twice daily and metoprolol 50 mg 1 pill twice daily. Recommend to maintain blood pressure less 150/80. If blood pressure remains elevated additional medication may be required. This can be further addressed by his PCP or cardiology. Recommend to reduce outdoor activity especially during summertime. Patient with diabetes mellitus type 2 insulin dependent. Patient with hyperglycemia. A1c 11.3. Blood sugar now better controlled. At discharge will recommend to increase Levemir to 15 units subcu at bedtime. Patient also takes metformin 500 mg 1 pill twice daily. Recommend to maintain blood sugar less than 140 fasting less than 200 after meals. Further adjustment by his PCP may be required. If blood sugar remains elevated greater than 200 Levemir can be increased by 1-2 units for better control. This can be done with the help of his PCP. Further follow up will be required for better diabetic control. Patient may have underlying obstructive sleep apnea. Recommend sleep study to be done as an outpatient to further evaluate and possibly treat. Vital Signs/Physical Exam: Temp Pulse Resp BP Pulse Ox 98.3 F 88 14 197/93 H 96 05/30/20 08:00 05/30/20 08:05 05/30/20 08:00 05/30/20 08:05 05/30/20 08:00 General: Alert, In no apparent distress, Oriented x3, Cooperative HEENT: Atraumatic, Other Neck: Supple Respiratory: Clear to auscultation bilaterally, Normal air movement Cardiovascular: Normal pulses, Regular rate/rhythm Gastrointestinal: Normal bowel sounds, No ascites, No tenderness, No masses, No rebound, No guarding Musculoskeletal: No erythema, No tenderness, No warmth Integumentary: No tenderness/swelling, No erythema, No warmth, No cyanosis Neurological: Normal speech, Normal strength at 5/5 x4 extr, Normal tone, Normal affect Laboratory Data at Discharge: WBC 6.3 K/uL (4.3-10.9) D 05/30/20 03:33 Hgb 13.6 g/dL (13.6-17.9) 05/30/20 03:33 Hct 39.7 % (39.6-49.0) 05/30/20 03:33 Plt Count 282 K/uL (152-406) 05/30/20 03:33 PT 12.5 SECONDS (9.5-12.5) 05/29/20 16:22 INR 1.06 05/29/20 16:22 APTT 31.4 SECONDS (24.3-36.9) 05/29/20 16:22 Sodium 139 mmol/L (136-145) 05/30/20 03:33 Potassium 3.7 mmol/L (3.5-5.1) 05/30/20 03:33 BUN 20 mg/dL (7-18) H 05/30/20 03:33 Creatinine 0.78 mg/dL (0.55-1.3) 05/30/20 03:33 Glucose 180 mg/dL (74-106) H 05/30/20 03:33 Magnesium 2.3 mg/dL (1.8-2.4) D 05/30/20 03:33 Troponin I 0.02 ng/mL (0.0-0.045) 05/30/20 03:33 Triglycerides 114 mg/dL (<150) 05/30/20 03:33 Cholesterol 128 mg/dL (<200) 05/30/20 03:33 HDL Cholesterol 48 mg/dL (40-60) 05/30/20 03:33 Cholesterol/HDL Ratio 2.67 05/30/20 03:33 Home Medications: Aspirin [Aspirin EC 81 MG] 81 mg PO DAILY #90 tablet. 02/10/17 Metformin HCl [Glucophage*] 500 mg PO BIDWM #60 tab 02/10/17 Insulin Detemir [Levemir Flextouch] 15 unit SQ BEDTIME #1 juany 05/30/20 Lisinopril [Zestril] 20 mg PO BID #60 tablet 05/30/20 Metoprolol Tartrate 50 mg PO BID #60 tablet 05/30/20 New Medications: Insulin Detemir [Levemir Flextouch] 15 unit SQ BEDTIME #1 juany Metoprolol Tartrate 50 mg PO BID #60 tablet Lisinopril [Zestril] 20 mg PO BID #60 tablet Patient Discharge Instructions: 1. Recommend follow up with PCP in 1 week to follow up this hospitalization. 2. Patient presented with chest pain and shortness of breath. Patient was admitted for further evaluation and treatment. Cardiac enzymes unremarkable. Patient was seen by Cardiology. Echocardiogram performed. Blood pressures and blood sugars were elevated. Patient required additional medication for better control. No further cardiac intervention needed at this time. Chest x-ray unremarkable. Lipid panel within normal range. At discharge no significant chest pain or shortness of breath. Cardiology recommends the patient to follow up in 1-2 weeks for outpatient cardiac stress test. Cardiology also recommends better control of hypertension. At discharge lisinopril and metoprolol were increased. At discharge he will continue with lisinopril 20 mg 1 pill twice daily and metoprolol 50 mg 1 pill twice daily. Recommend to maintain blood pressure less 150/80. If blood pressure remains elevated additional medication may be required. This can be further addressed by his PCP or cardiology. Recommend to reduce outdoor activity especially during summertime. 3. Patient with diabetes mellitus type 2 insulin dependent. Patient with hyperglycemia. A1c 11.3. Blood sugar now better controlled. At discharge will recommend to increase Levemir to 15 units subcu at bedtime. Patient also takes metformin 500 mg 1 pill twice daily. Recommend to maintain blood sugar less than 140 fasting less than 200 after meals. Further adjustment by his PCP may be required. If blood sugar remains elevated greater than 200 Levemir can be increased by 1-2 units for better control. This can be done with the help of his PCP. Further follow up will be required for better diabetic control. 4. Patient may have underlying obstructive sleep apnea. Recommend sleep study to be done as an outpatient to further evaluate and possibly treat. Diet: ADA Activity: Ad pollo Time spent managing pt's care (in minutes): 55
--- NOTE | 2020-05-30 13:16 | CON ---
Date of Consultation: 05/29/2020 Additional Consulting Physician: Giuliano Murguia MD Reason For Consultation: Syncope, dizziness, shortness of breath, and chest pain. History Of Present Illness: Mr. Rooney is a 69-year-old male. He is a patient of Dr. Mueller. He gipson s a history of hypertension, diabetes, and dyslipidemia. He was working outside in the yard when he had a syncopal episode. He became dizzy and shortness of breath before his syncope. Has some chest pain after the syncope. Denied any nausea, vomiting, diaphoresis, PND, orthopnea, pedal edema, or pa lpitation. Denied any fever or chills or cough. He is pain free now and feels much better now after hydration. He had already had negative echocardiogram, negative carotid Doppler recently. His card iac workup was negative, except for slightly elevated BNP. His glucose was 227. EKG is unremarkable . Chest x-ray is unremarkable. Past Medical History: As stated above. Allergies: NONE. Review of Systems: Negative. Social History: Negative. Family History: Negative. Medications: Include lisinopril, metformin, aspirin, and insulin. Physical Examination: General: He is a very pleasant man, no acute distress. Vital Signs: Stable, afebrile. Neck: Supple without any bruit, lymphadenopathy, JVD, or thyromegaly. Chest: Clear to auscultation and percussion. Cardiac: Revealed a regular rhythm and rate. No murmurs, gallops, or rubs. Abdomen: Benign. Extremities: Revealed no clubbing, cyanosis, or edema. Diagnostic Data: As stated earlier. Impression And Plan: 1.Orthostatic hypotension causing syncope. 2.Hypertension. 3.Diabetes. 4.Dyslipidemia. 5.History of alcohol abuse in the past. Echocardiogram is pending. He is hydrated. He is feeling good. I think he can go home. I will make arrangements for him to have an outpatient stress test. He did complain of some symptoms that are suggestive of claudication and I will have him do an outpat ient BANDAR as well. NB/MODL Voice ID: [id number] Report ID: [id number]
--- NOTE | 2020-05-31 06:43 | ECHO ---
HEIGHT: 5 ft 9 in WEIGHT: 186 lb 3.2 oz DATE OF STUDY: 05/30/[address]: Сергей Noonan DO 2-DIMENSIONAL: YES M.MODE: YES DOPPLER: YES COLOR FLOW: YES TDS: PORTABLE: DEFINITY: BUBBLE STUDY: DIAGNOSIS: CONGESTIVE HEART FAILURE CARDIAC HISTORY: CATHERIZATION: SURGERY: PROSTHETIC VALVE: PACEMAKER: MEASUREMENTS (cm) DIASTOLIC (NORMALS) SYSTOLIC (NORMALS) IVSd 1.2 (0.6-1.2) LA Diam 3.7 (1.9-4.0) LVEF 51% LVIDd 4.1 (3.5-5.7) LVIDs 3.1 (2.0-3.5) %FS 26% LVPWd 1.2 (0.6-1.2) Ao Diam 2.9 (2.0-3.7) 2 DIMENSIONAL ASSESSMENT: RIGHT ATRIUM: NORMAL LEFT ATRIUM: NORMAL RIGHT VENTRICLE: NORMAL LEFT VENTRICLE: MILD LEFT VENTRICULAR HYPERTROPHY TRICUSPID VALVE: NORMAL MITRAL VALVE: MILD MITRAL REGURGITATION PULMONIC VALVE: NORMAL AORTIC VALVE: NORMAL PERICARDIAL EFFUSION: NONE AORTIC ROOT: NORMAL LEFT VENTRICULAR WALL MOTION: NORMAL DOPPLER/COLOR FLOW: NORMAL COMMENTS: NORMAL LEFT VENTRICULAR EJECTION FRACTION 50-55%. NORMAL WALL MOTION. MILD MITRAL REGURGITATION. TECHNOLOGIST: OSMAR BERNSTIEN
== END 2020-05-30 11:56 | disposition home or self-care (01) ==
LOC: ER 15:31 → ERHOLD 17:56 → 4TH 19:49
PROVIDERS: ADMIT Family Medicine; ATTEND Family Medicine
DX: R07.89 Other chest pain (principal); R06.02 Shortness of breath; E11.65 Type 2 diabetes mellitus with hyperglycemia; I95.1 Orthostatic hypotension; I10 Essential (primary) hypertension; E78.5 Hyperlipidemia, unspecified; E78.00 Pure hypercholesterolemia, unspecified; F10.11 Alcohol abuse, in remission; Z71.41 Alcohol abuse counseling and surveillance of alcoholic; Z79.82 Long term (current) use of aspirin; Z79.4 Long term (current) use of insulin; Z20.828 Contact with and (suspected) exposure to other viral communicable diseases
CPT/HCPCS: 96361; 93005; 93306; 85025 ×2; 80048 ×2; 36415 ×2; 82010; 83735; 82550 ×3; 85610; 80061; 82947 ×4; 85730; 84443; 83036; 84484 ×3; 82553 ×2; 84439; 84145; 83880; 71045; 96374; 99285; U0002; J0360; J1940; J1650; J7040; G0378 ×3; 81003; 81015; J1815

== ENCOUNTER 2021-08-28 06:26 | Emergency (ER) | payer OTHER ==
--- OUTSIDE RECORDS SUMMARY | 2021-08-28 06:29 | XMS REPORT | Continuity of Care Document ---
:[address] [facility] t Address [address] [place] [address] Care Team Providers Name Role Phone SG Attending Clinician Unavailable SG Admitting Clinician Unavailable Problems This patient has no known problems. Allergies, Adverse Reactions, Alerts This patient has no known allergies or adverse reactions. Medications Ordered Filled Start Stop Current Ordering Indication Dosage Frequency Signature Comments Components Source Medication Medication Date Date Medication? Clinician (SIG) Name Name MetFORMIN MetFORMIN Yes Marquis [address] [facility] HCl ER HCl ER 05-14 Mueller with meal [facility] Lisinopril- Lisinopril- Yes Marquis [address] [facility] Hydrochloro Hydrochloro 05-14 [facility] th[facility]ide [facility]: [facility] Diclofenac Diclofenac Yes [facility]quis [address] [facility] Sodium Sodium [facility] Victoza Victoza Yes Marquis as [facility] directed [facility] Metformin Metformin Yes Marquis [address] [facility] HCl HCl Mueller with a [facility] - meal [facility] Pantoprazol Pantoprazol Yes [facility]quis [address] [facility] e Sodium e Sodium Mueller [facility] Simvastatin Simvastatin Yes [facility]quis [address] [facility] Mueller in the [facility] evening [facility] Lisinopril Lisinopril Yes Marquis [address] [facility] Procedures This patient has no known procedures. Encounters Start End Encounter Admission Attending Care Care Encounter Source Date/Time Date/Time Type Type Clinicians Facility Department ID 2021-08-25 2021-08-25 ambulatory [facility] [id number] [facility] 2021-05-01 2021-05-01 Outpatient [facility] [id number] [facility] 2021-04-10 2021-04-10 Outpatient [facility] [id number] [facility] 2020-12-03 2020-12-03 [facility] [id number] [facility] 2020-12-03 2020-12-03 Out[facility] [id number] [facility] 2020-09-04 2020-09-04 Out[facility] [id number] [facility] 2020-06-04 2020-06-04 Out[facility] [id number] [facility] 2020-06-04 2020-06-04 Out[facility] [id number] [facility] 2020-05-31 2020-05-31 Outpatient [facility] [id number] [facility] 2020-05-14 2020-05-14 [facility] [id number] [facility] 09:40:00 09:40:00 [employer] [place] [facility] Results Test Description Test Time Test Comments Results Result [facility] e Comments TISSUE EXAM 2018-08-08 Surgical Pathology Report 15:51:00 Case: [id number] Authorizing Provider: Paulina Simpson MD Collected: 08/05/2018 1009 Ordering Location: [address] Received: 08/05/2018 1409 Service Pathologist: Claude Chacon MD Specimens: A) - Biopsy, Gastric, Random B) - Polyp, Colon - Cecum, Polyp A. STOMACH, RANDOM, BIOPSY: - CHRONIC INACTIVE GASTRITIS - NEGATIVE FOR H. PYLORI BY WARTHIN STARRY STAINB. COLON, CECUM, POLYPECTOMY: - TUBULAR ADENOMA Signing Pathologist Direct Phone Line: [phone] y signed by Claude Chacon MD on 08/08/2018 at 3:51 [id number] X 2 , [id number] bleedA. Random gastric biopsy; B. Cecum colon [...] stains. Immunohistochemistry technical testing was performed at [facility], Pathology Laboratory where it was developed [...] Reference Range Interpretation Comme nts POC-GLUCOSE METER (BEAKER) (test 190 mg/dL 70-110 H TESTED AT [facility] [address] [facility] code = 1538) [facility] 7703 0 POCT-GLUCOSE [id number] 10:55:00 Test Item Value Reference Range Interpretation Comments POC-GLUCOSE METER 196 mg/dL 70-110 H TESTED AT [facility] [address] (BEAKER) (test code = RAFIQ [place] 1538) [address] U/S, ABDOMINAL, [id number] 08:36:00Abdomen limited area? Add comment if clarification [...] MDReport Verified Date/Time: 08/05/2018 08:36:42 Reading Location: [address] Ultrasound Reading Room [id number] 07:05:00 Test Item Value Reference Range Interpretation Comments PHOSPHORUS (BEAKER) (test code = 2.1 mg/dL 2.3-4.7 L 604) [id number] 07:05:00 Test Item Value Reference Range Interpretation Comments MAGNESIUM (BEAKER) (test code = 2.2 mg/dL 1.6-2.6 627) BASIC METABOLIC [id number] 07:05:00 Test Item Value Reference Range Interpretation [...] APPLICABLE FOR DIALYSIS PATIEN TS. HEPATIC FUNCTION [id number] 07:05:00 Test Item Value Reference Range Interpretation [...] code = 17 U/L 6-55 347) TROPONIN [id number] 07:03:00 Test Item Value Reference Range Interpretation Comments TROPONIN I (BEAKER) (test code = 397) < ng/mL 0.00-0.03 HEMOGLOBIN AND [id number] 06:11:00 Test Item Value Reference Range Interpretation Comments HEMOGLOBIN (BEAKER) (test code = 10.1 GM/DL 13.7-17.5 L 410) HEMATOCRIT (BEAKER) (test code = 31.4 % 40.1-51.0 L 411) CBC W/PLT COUNT & AUTO [id number] 06:11:00 Test Item Value Reference Range Interpretation [...] PERCENT (BEAKER) (test code = 2801) POCT-GLUCOSE [id number] 20:44:00 Test Item Value Reference Range Interpretation Comments POC-GLUCOSE METER 149 mg/dL 70-110 H TESTED AT [place] [address] ([facility]) (test code = RAFIQ Russo [facility] 1538) [id number] RAD, CHEST, 1 VIEW, NON [id number] 20:38:00Reason for exam:->SOBShould this be performed at the bedside?->YesFINAL REPORT History: Shortness of breath. Comparison: None. Findings: A single view of the chest is submitted. The cardiomediastinal contours are unremarkable. Retrocardiac opacity in the left lung may reflect atelectasis but pneumonitis should be excluded clinically. Thereis no pneumothorax, large pleural effusion, evidence of overt pulmonary edema or acute bony abnormality. Signed: Bubba Juarez Verified Date/Time: 08/04/2018 20:38:15 Reading Location: [address] Reading Room TROPONIN [id number] 20:02:00 Test Item Value Reference Range Interpretation Comments TROPONIN I (BEAKER) (test code = 397) < ng/mL 0.00-0.03 POCT-GLUCOSE [id number] 19:55:00 Test Item Value Reference Range Interpretation Comments POC-GLUCOSE METER 99 mg/dL 70-110 TESTED AT [place] [address] ([facility]) (test code = RAFIQ Russo [facility] [address] 1538) POCT-GLUCOSE [id number] 19:15:00 Test Item Value Reference Range Interpretation Comments POC-GLUCOSE METER 129 mg/dL 70-110 H TESTED AT [place] [address] ([facility]) (test code = RAFIQ Russo [facility] 1538) [id number] 18:38:00 Test Item Value Reference Range Interpretation Comments MAGNESIUM (BEAKER) 2.2 mg/dL 1.6-2.6 Specimen slightly (test code = 627) hemolyzed BASIC METABOLIC [id number] 18:38:00 Test Item Value Reference Range Interpretation [...] NOT APPLICABLE FOR DIALYSIS PATIEN TS. PROTHROMBIN [id number] 18:12:00 Test Item Value Reference Range Interpretation Comments PROTIME (BEAKER) (test code = 16.1 seconds 11.7-14.7 H 759) INR (BEAKER) (test code = 370) 1.3 <=5.9 RECOMMENDED COUMADIN/WARFARIN INR THERAPY RANGESSTANDARD DOSE: 2.0 - 3.0 Includes: PROPHYLAXIS forvenous thrombosis, systemic embolization; TREATMENT for venous thrombosis and/or pulmonary embolus.HIGH RISK: Target INR is 2.5-3.5 for patients with mechanical heart valves.HEMOGLOBIN AND [id number] 18:05:00 Test Item Value Reference Range Interpretation Comments HEMOGLOBIN (BEAKER) (test code = 9.1 GM/DL 13.7-17.5 L 410) HEMATOCRIT (BEAKER) (test code = 28.1 % 40.1-51.0 L 411) POCT-LACTIC ACID, [id number] 17:59:00 Test Item Value Reference Range Interpretation Comments POC-LACTIC ACID, 2.0 mmol/L 0.9-1.7 H TESTED AT [facility] [address] (BEAKER) (test RAFIQ [place] code = 2805) [address] POCT-GLUCOSE [id number] 17:06:00 Test Item Value Reference Range Interpretation Comments POC-GLUCOSE METER 85 mg/dL 70-110 TESTED AT [facility] [address] (BEAKER) (test code = [place] [address] 1538) CBC W/PLT COUNT & AUTO [id number] 16:06:00 Test Item Value Reference Range Interpretation [...] PERCENT (BEAKER) (test code = 2801) POCT-GLUCOSE [id number] 11:55:00 Test Item Value Reference Range Interpretation Comments POC-GLUCOSE METER 350 mg/dL 70-110 H Notified R Bernie BELL/TESTED (BEAKER) (test code = AT [facility] [address] 1538) [facility] 7[address] 0 POCT-GLUCOSE [id number] 07:38:00 Test Item Value Reference Range Interpretation Comments POC-GLUCOSE METER 221 mg/dL 70-110 H TESTED AT [facility] [address] (BEAKER) (test code = RAFIQ Russo [facility] 1538) [address] [id number] 07:01:00 Test Item Value Reference Range Interpretation Comments MAGNESIUM (BEAKER) 2.2 mg/dL 1.6-2.6 Specimen slightly (test code = 627) hemolyzed [id number] 07:01:00 Test Item Value Reference Range Interpretation Comments PHOSPHORUS (BEAKER) 3.4 mg/dL 2.3-4.7 Specimen slightly (test code = 604) hemolyzed BASIC METABOLIC [id number] 07:01:00 Test Item Value Reference Range Interpretation [...] APPLICABLE FOR DIALYSIS PATIEN TS. HEPATIC FUNCTION [id number] 07:01:00 Test Item Value Reference Range Interpretation [...] (test code = 347) hemolyzed HEMOGLOBIN AND [id number] 06:32:00 Test Item Value Reference Range Interpretation Comments HEMOGLOBIN (BEAKER) (test code = 9.2 GM/DL 13.7-17.5 L 410) HEMATOCRIT (BEAKER) (test code = 28.1 % 40.1-51.0 L 411) [id number] 02:43:00 Test Item Value Reference Range Interpretation Comments FERRITIN (BEAKER) (test code = 361) 164 ng/mL 5-275 VITAMIN B12 AND [id number] 02:43:00 Test Item Value Reference Range Interpretation [...] L (test code = 2590) COMPREHENSIVE METABOLIC [id number] 00:56:00 Test Item Value Reference Range Interpretation [...] NOT APPLICABLE FOR DIALYSIS PATIEN TS. PROTHROMBIN [id number] 00:50:00 Test Item Value Reference Range Interpretation [...] EOSINOPHILS ABSOLUTE COUNT 0.15 K/ L 0.04-0.54 ([facility]) (test code = 416) BASOPHILS ABSOLUTE COUNT ([facility]) 0.03 K/ L 0.01-0.08 (test code = 417) IMMATURE GRANULOCYTES-RELATIVE 0 % 0-1 PERCENT ([facility]) (test code = 2801) POCT-GLUCOSE [id number] 23:55:00 Test Item Value Reference Range Interpretation Comments POC-GLUCOSE METER 245 mg/dL 70-110 H TESTED AT [facility] 67[address] ([facility]) (test code = [place] 1538) [address]
[2021-08-28 09:11] LABS: SARS-COV-2 RT PCR POSITIVE (NEGATIVE)
[2021-08-28] MEDS ORDERED: NA CHLORIDE 0.9% 250 ML ONE (09:31)
[2021-08-28] MEDS ORDERED: CASIRIVIMAB/IMDEVIMAB 10 ML VIAL ONE (09:31)
--- NOTE | 2021-08-28 11:06 | ER ---
Nurse's Notes [facility] Name: Anthony Rooney Age: 70 yrs Sex: Male : 1950 Arrival Date: 08/28/2021 Time: 06:30 Bed 6 Private MD: Diagnosis: Coronavirus infection, unspecified Presentation: 08/28 06:43 Chief complaint: Patient states: c/o cough, body aches, dizziness, headache, joint as6 pain. Coronavirus screen: Vaccine status: Patient reports receiving the 2nd dose of the covid vaccine. Client presents with at least one sign or symptom that may indicate coronavirus-19. Standard/surgical mask placed on the client. Ebola Screen: No symptoms or risks identified at this time. Initial Sepsis Screen: Does the patient meet any 2 criteria? No. Patient's initial sepsis screen is negative. Does the patient have a suspected source of infection? No. Patient's initial sepsis screen is negative. Risk Assessment: Do you want to hurt yourself or someone else? Patient reports no desire to harm self or others. Onset of symptoms was August 25, 2021. 06:43 Method Of Arrival: Ambulatory as6 06:43 Acuity: NAE 4 as6 09:26 Acuity: NAE 3 iw Triage Assessment: 07:00 General: Appears distressed, uncomfortable, Behavior is calm, cooperative, appropriate bp for age. Pain: Denies pain. EENT: Reports nasal discharge pain when swallowing. Neuro: Level of Consciousness is awake, alert, obeys commands, Oriented to person, place, time, situation, Appropriate for age. Cardiovascular: No deficits noted. Respiratory: Reports cough that is. GI: No signs and/or symptoms were reported involving the gastrointestinal system. : No signs and/or symptoms were reported regarding the genitourinary system. Derm: No deficits noted. Musculoskeletal: No deficits noted. Historical: - Allergies: 06:49 No Known Allergies; as6 - Home Meds: 06:49 lisinopril 20 mg Oral tab 1 tab twice a day [Active]; metformin 1,000 mg Oral tab 1 tab as6 2 times per day [Active]; pantoprazole 40 mg Oral TbEC 1 tab once daily [Active]; - PMHx: 06:49 Diabetes - IDDM; High Cholesterol; Hypertension; Ulcers; as6 - Immunization history:: Client reports receiving the 2nd dose of the Covid vaccine, Last tetanus immunization: < 5 years ago Pneumococcal vaccine is up to date, Flu vaccine is up to date. - Social history:: Smoking status: Patient denies any tobacco usage or history of. Screenin:56 Abuse screen: Denies threats or abuse. Nutritional screening: No deficits noted. as6 Tuberculosis screening: No symptoms or risk factors identified. Fall Risk None identified. Assessment: 06:54 General: Appears in no apparent distress. comfortable, Behavior is calm, cooperative, as6 anxious. Pain: Complains of pain in body aches, joint pain. Neuro: Level of Consciousness is awake, alert, obeys commands, Oriented to person, place, time, situation, Reports dizziness, headache. Cardiovascular: Capillary refill < 3 seconds Patient's skin is warm and dry. Respiratory: Airway is patent Trachea midline Respiratory effort is even, unlabored, Respiratory pattern is regular, symmetrical, Breath sounds are clear bilaterally. EENT: Throat is clear Reports nasal congestion sore throat . Derm: Skin is intact, is healthy with good turgor. 08:24 Reassessment: No changes from previously documented assessment. Patient and/or family bp updated on plan of care and expected duration. Pain level reassessed. LABS IN PROCESS. 09:45 Reassessment: No changes from previously documented assessment. Patient and/or family bp updated on plan of care and expected duration. Pain level reassessed. PT CONSENTED FOR REGEN-COV INFUSION BY PROVIDER. INFUSION PENDING PREP. 11:00 Reassessment: REGEN INFUSION COMPLETE, PT ON OBS TIME. D/C ON HOLD. bp 11:56 Reassessment: PT D/C HOME AMBULATORY, DX WITH SARS-COVID. bp Vital Signs: 06:43 BP 185 / 105; Pulse 85; Resp 18 S; Temp 99.5(O); Pulse Ox 96% on R/A; Weight 102.06 kg as6 (R); Height 5 ft. 9 in. (175.26 cm) (R); Pain 8/10; 07:22 BP 175 / 90; Pulse 78; Resp 18; Pulse Ox 97% on R/A; ll1 08:23 BP 183 / 90; Pulse 90; Resp 16; Pulse Ox 100% ; bp 09:47 BP 162 / 85; Pulse 80; Resp 16; Pulse Ox 99% ; bp 10:30 BP 169 / 87; Pulse 81; Resp 17; Pulse Ox 100% ; bp 11:30 BP 176 / 95; Pulse 78; Resp 17; Pulse Ox 99% ; bp 06:43 Body Mass Index 33.23 (102.06 kg, 175.26 cm) as6 ED Course: 06:30 Patient arrived in ED. bp1 06:35 Kavya Marie FNP-C is [facility]. kb 06:35 Alondra Mueller MD is Attending Physician. kb 06:41 Raj Burgos, MONIKA is Primary Nurse. as6 06:49 Triage completed. as6 06:51 Arm band placed on. as6 06:56 Bed in low position. Call light in reach. Side rails up X2. Adult w/ patient. Pulse ox as6 on. NIBP on. 07:08 Primary Nurse role handed off by Raj Burgos, MONIKA bp 07:08 Jaison Villa, MONIKA is Primary Nurse. bp 07:10 Jaison Villa RN is Primary Nurse. bp 07:10 Strep Sent. bp 07:10 COVID-19/FLU A+B (Document "Date of Onset" if Symptomatic) Sent. bp 09:30 Inserted saline lock: 22 gauge in right forearm, using aseptic technique. bp 11:32 No provider procedures requiring assistance completed. IV discontinued, intact, bp bleeding controlled, No redness/swelling at site. Pressure dressing applied. Administered Medications: 09:55 Drug: REGEN-COV Dose Pack 120 mg/mL-120 mg/mL (EUA) 1 application Route: IV; Rate: bp calculated rate; Site: right forearm; 11:00 Follow up: IV Status: Completed infusion; IV Intake: 260ml bp Intake: 11:00 IV: 260ml; Total: 260ml. bp Outcome: 11:05 Discharge ordered by . kb 11:56 Discharged to home ambulatory. bp 11:56 Condition: stable 11:56 Discharge instructions given to patient, Instructed on discharge instructions, follow up and referral plans. Demonstrated understanding of instructions, follow-up care. 11:57 Patient left the ED. bp Signatures: Kavya Marie FNP-C FNP-Ckb Williams, Irene, RN RN iw Jaison Villa RN RN bp Cinthya Foley RN RN ll1 Teresa Pearce bp1 Slawson, Raj, RN RN as6
--- NOTE | 2021-08-28 11:06 | EDPHYS ---
Physician Documentation [facility] Name: Anthony Rooney Age: 70 yrs Sex: Male : 1950 Arrival Date: 08/28/2021 Time: 06:30 Bed 6 Private MD: ED Physician Alondra Mueller HPI: 08/28 06:37 This 70 yrs old Male presents to ER via Unassigned with complaints of Cough, kb Runny Nose, Sore Throat. 06:37 The patient or guardian reports cough, that is intermittent, flu symptoms, myalgias. kb Onset: The symptoms/episode began/occurred 3 day(s) ago. Severity of symptoms: At their worst the symptoms were mild, moderate, in the emergency department the symptoms are unchanged. Modifying factors: The symptoms are alleviated by nothing, the symptoms are aggravated by nothing. Associated signs and symptoms: Pertinent positives: rhinorrhea, sore throat, Pertinent negatives: chest pain, diarrhea, ear ache, fever, nausea, vomiting. The patient has not experienced similar symptoms in the past. The patient has not recently seen a physician. Pt reports cough, runny nose, sore throat, malaise and bodyaches for 3 days. Family member recently had covid. Historical: - Allergies: 06:49 No Known Allergies; as6 - Home Meds: 06:49 lisinopril 20 mg Oral tab 1 tab twice a day [Active]; metformin 1,000 mg Oral tab 1 tab as6 2 times per day [Active]; pantoprazole 40 mg Oral TbEC 1 tab once daily [Active]; - PMHx: 06:49 Diabetes - IDDM; High Cholesterol; Hypertension; Ulcers; as6 - Immunization history:: Client reports receiving the 2nd dose of the Covid vaccine, Last tetanus immunization: < 5 years ago Pneumococcal vaccine is up to date, Flu vaccine is up to date. - Social history:: Smoking status: Patient denies any tobacco usage or history of. ROS: 06:37 Abdomen/GI: Negative for abdominal pain, nausea, vomiting, diarrhea, and constipation. kb 06:37 ENT: Positive for rhinorrhea, sinus congestion, sore throat. 06:37 Respiratory: Positive for cough, Negative for dyspnea on exertion, hemoptysis, orthopnea, pleurisy, shortness of breath, sputum production, wheezing. 06:37 All other systems are negative. 06:38 Constitutional: Positive for body aches, malaise. kb Exam: 06:36 Constitutional: This is a well developed, well nourished patient who is awake, alert, kb and in no acute distress. Head/Face: Normocephalic, atraumatic. Cardiovascular: Regular rate and rhythm with a normal S1 and S2. No gallops, murmurs, or rubs. No pulse deficits. Respiratory: Respirations even and unlabored. No increased work of breathing. Talking in full sentences Skin: Warm, dry with normal turgor. Normal color. MS/ Extremity: Pulses equal, no cyanosis. Neurovascular intact. Full, normal range of motion. Neuro: Awake and alert, GCS 15, oriented to person, place, time, and situation. Moves all extremities. Normal gait. Psych: Awake, alert, with orientation to person, place and time. Behavior, mood, and affect are within normal limits. 06:36 ENT: External ear(s): are unremarkable, Ear canal(s): are normal, TM's: are normal, Nose: is normal, Mouth: is normal, Posterior pharynx: erythema, that is moderate. Vital Signs: 06:43 BP 185 / 105; Pulse 85; Resp 18 S; Temp 99.5(O); Pulse Ox 96% on R/A; Weight 102.06 kg as6 (R); Height 5 ft. 9 in. (175.26 cm) (R); Pain 8/10; 07:22 BP 175 / 90; Pulse 78; Resp 18; Pulse Ox 97% on R/A; ll1 08:23 BP 183 / 90; Pulse 90; Resp 16; Pulse Ox 100% ; bp 09:47 BP 162 / 85; Pulse 80; Resp 16; Pulse Ox 99% ; bp 10:30 BP 169 / 87; Pulse 81; Resp 17; Pulse Ox 100% ; bp 11:30 BP 176 / 95; Pulse 78; Resp 17; Pulse Ox 99% ; bp 06:43 Body Mass Index 33.23 (102.06 kg, 175.26 cm) as6 MDM: 06:36 Patient medically screened. kb 06:36 Data reviewed: vital signs, nurses notes. Data interpreted: Pulse oximetry: on room air kb is 100 %. Interpretation: normal. 09:19 Counseling: I had a detailed discussion with the patient and/or guardian regarding: the kb historical points, exam findings, and any diagnostic results supporting the discharge/admit diagnosis, lab results, the need for outpatient follow up, a family practitioner, to return to the emergency department if symptoms worsen or persist or if there are any questions or concerns that arise at home. 08/28 06:36 Order name: COVID-19/FLU A+B (Document "Date of Onset" if Symptomatic) kb 08/28 06:36 Order name: Strep kb 08/28 06:37 Order name: COVID-19/FLU A+B; Complete Time: 09:18 EDMS 08/28 06:37 Order name: Group A Streptococcus Rapid Sc; Complete Time: 07:39 EDMS 08/28 07:40 Order name: Throat Culture EDMS Administered Medications: 09:55 Drug: REGEN-COV Dose Pack 120 mg/mL-120 mg/mL (EUA) 1 application Route: IV; Rate: bp calculated rate; Site: right forearm; 11:00 Follow up: IV Status: Completed infusion; IV Intake: 260ml bp Disposition: 19:42 Co-signature as Attending Physician, Alondra Mueller MD I agree with the assessment and sp3 plan of care. Disposition Summary: 08/28/21 11:05 Discharge Ordered Location: Home kb Condition: Stable kb Diagnosis - Coronavirus infection, unspecified kb Followup: kb - With: Emergency Department - When: As needed - Reason: Worsening of condition Followup: kb - With: Private Physician - When: 2 - 3 days - Reason: Recheck today's complaints, Continuance of care, Re-evaluation by your physician Discharge Instructions: - Discharge Summary Sheet kb - Viral Respiratory Infection, [id number] kb - COVID-19 kb Forms: - Medication Reconciliation Form kb - Thank You Letter kb - Antibiotic Education kb - Prescription Opioid Use kb Signatures: Dispatcher [employer] EDMS Kavya Marie FNP-C FNP-Ckb Peltier, Brian, RN RN Alondra Iqbal MD MD sp3 Raj Burgos RN RN as6 Corrections: (The following items were deleted from the chart) 06:38 06:37 Constitutional: Negative for fever, chills, and weight loss, kb kb
[2021-08-28 12:04] VITALS: TEMP 99.5
[2021-08-28 12:11] VITALS: BP 176/95; O2SAT 99
== END 2021-08-28 11:57 | disposition home or self-care (01) ==
LOC: ER 06:26
DX: U07.1 COVID-19 (principal); E11.9 Type 2 diabetes mellitus without complications; I10 Essential (primary) hypertension
CPT/HCPCS: 96365; 87070; 87081; 0240U; 99284; J7050

== ENCOUNTER 2022-04-24 15:06 | Emergency (ER) | payer OTHER ==
--- OUTSIDE RECORDS SUMMARY | 2022-04-24 15:12 | XMS REPORT | Continuity of Care Document ---
:1950 Author Organization [facility] t Address [address] [place] [address] Care Team Providers Name Role Phone Marquis Mueller Attending Clinician Unavailable RORO BETTENCOURT Attending Clinician Unavailable RORO BETTENCOURT Admitting Clinician Unavailable Problems This patient has no known problems. Allergies, Adverse Reactions, Alerts This patient has no known allergies or adverse reactions. Medications Ordered Filled Start Stop Current Ordering Indication Dosage Frequency Signature Comments Components Source Medication Medication Date Date Medication? Clinician (SIG) Name Name MetFORMIN MetFORMIN Yes Marquis 2 tablets Common HCl ER HCl ER 05-14 Mueller with meal Spiri t 00:00: - [facility] Lisinopril- Lisinopril- Yes Marquis 1 tablet Common Hydrochloro Hydrochloro 05-14 Mueller Spirit thiazide thiazide 00:00: - [facility] Diclofenac Diclofenac Yes Marquis 1 tablet Common Sodium Sodium Mueller [facility] Victoza Victoza Yes Marquis as Common Mueller directed [facility] Metformin Metformin Yes Marquis 1 tablet Common HCl HCl Mueller with a Spirit meal [facility] Pantoprazol Pantoprazol Yes Marquis 1 tablet Common e Sodium e Sodium Mueller [facility] Simvastatin Simvastatin Yes Marquis 1 tablet Common Mueller in the Spirit evening [facility] Lisinopril Lisinopril Yes Marquis 1 tablet Common Mueller [facility] Procedures This patient has no known procedures. Encounters Start End Encounter Admission Attending Care Care Encounter Source Date/Time Date/Time Type Type Clinicians Facility Department ID 2022-04-17 Outpatient Mueller, STLMLC STLMLC [id number] Common 11:25:01 Marquis [facility] 2021-10-08 Outpatient Mueller, STLMLC STLMLC [id number] Common 14:23:27 Marquis [id number] [facility] 2021-10-08 Outpatient Mueller, STLMLC STLMLC [id number] Common 13:50:19 Marquis [id number] [facility] 2021-10-08 Outpatient Mueller, STLMLC STLMLC [id number] Common 13:39:57 Marquis [id number] [facility] 2021-10-08 Outpatient Mueller, STLMLC STLMLC [id number] Common 13:31:57 Marquis [id number] [facility] 2021-10-08 Outpatient Mueller, STLMLC STLMLC [id number] Common 12:43:01 Marquis [id number] [facility] 2021-10-08 Outpatient Mueller, STLMLC STLMLC [id number] Common 11:56:36 Marquis [id number] [facility] 2021-10-08 Outpatient Mueller, STLMLC STLMLC [id number] Common 11:47:29 Marquis [id number] [facility] 2021-10-08 Outpatient Mueller, STLMLC STLMLC [id number] Common 11:42:57 Marquis 11559 [facility] 2021-10-08 Outpatient Mueller, STLMLC STLMLC [id number] Common 11:42:19 Marquis [id number] [facility] 2022-04-20 2022-04-20 ambulatory STLMLC STLMLC [id number] Common 00:00:00 00:00:00 [facility] 2022-03-19 2022-03-19 ambulatory STLMLC STLMLC [id number] Common 00:00:00 00:00:00 [facility] 2022-02-11 2022-02-11 ambulatory STLMLC STLMLC [id number] Common 00:00:00 00:00:00 [facility] 2022-01-21 2022-01-21 ambulatory STLMLC STLMLC [id number] Common 00:00:00 00:00:00 [facility] 2021-09-24 2021-09-24 ambulatory STLMLC STLMLC [id number] Common 00:00:00 00:00:00 [facility] 2021-08-25 2021-08-25 ambulatory STLMLC STLMLC [id number] Common 00:00:00 00:00:00 [facility] 2021-05-01 2021-05-01 Outpatient STLMLC STLMLC [id number] Common 00:00:00 00:00:00 [facility] 2021-04-10 2021-04-10 Outpatient STLMLC STLMLC [id number] Common 00:00:00 00:00:00 [facility] 2020-12-03 2020-12-03 Outpatient STLMLC STLMLC [id number] Common 00:00:00 00:00:00 [facility] 2020-12-03 2020-12-03 Outpatient STLMLC STLMLC [id number] Common 00:00:00 00:00:00 [facility] 2020-09-04 2020-09-04 Outpatient STLMLC STLMLC [id number] Common 00:00:00 00:00:00 [facility] 2020-06-04 2020-06-04 Outpatient STLMLC STLMLC [id number] Common 00:00:00 00:00:00 [facility] 2020-06-04 2020-06-04 Outpatient STLMLC STLMLC [id number] Common 00:00:00 00:00:00 [facility] 2020-05-31 2020-05-31 Outpatient STLMLC STLMLC [id number] Common 00:00:00 00:00:00 [facility] 2020-05-14 2020-05-14 Outpatient Jono Abdul [id number] Common 09:40:00 09:40:00 t Wizer [facility] it [email or web address] [facility] Results Test Description Test Time Test Comments Results Result Sourc e Comments TISSUE EXAM 2018-08-08 Surgical Pathology Report 15:51:00 Case: [id number] Authorizing Provider: Paulina Simpson MD Collected: 08/05/2018 1009 Ordering Location: [address] Received: 08/05/2018 1409 Service Pathologist: Claude Chacon MD Specimens: A) - Biopsy, Gastric, Random B) - Polyp, Colon - Cecum, Polyp A. STOMACH, RANDOM, BIOPSY: - CHRONIC INACTIVE GASTRITIS - NEGATIVE FOR H. PYLORI BY WARTHIN STARRY STAINB. COLON, CECUM, POLYPECTOMY: - TUBULAR ADENOMA Signing Pathologist Direct Phone Line: [phone] y signed by Claude Chacon MD on 08/08/2018 at 3:51 [id number] X 2 , [id number] bleedA. Random gastric biopsy; B. Cecum colon [...] stains. Immunohistochemistry technical testing was performed at [facility], Pathology Laboratory where it was developed [...] (test 190 mg/dL 70-110 H TESTED AT [facility] [address] [facility] code = 1538) [place] [address] POCT-GLUCOSE [id number] 10:55:00 Test Item Value Reference Range Interpretation Comments POC-GLUCOSE METER 196 mg/dL 70-110 H TESTED AT [facility] [address] (BEAKER) (test code = RAFIQ [address] [place] 1538) [address] U/S, ABDOMINAL, [id number] 08:36:00Abdomen limited area? Add comment if clarification is needed.->Right upper quadrantReason for exam:->eval for cirrhosisFINAL REPORT TECHNIQUE: Grayscale ultrasound of the right abdomen. INDICATION: Evaluate for cirrhosis. COMPARISON: None. FINDINGS: MIDLINE VASCULATURE: The visualized inferior venacava is patent. Portal vein is patent. The maximum visualized aortic diameter is 2.5 cm. LIVER: The liver is diffusely hyperechoic with sparing around the gallbladder. The main portal vein measures 1.1cm. BILIARY:Gallbladder: No gallstones or sludge. No gallbladder wall thickening, pericholecystic fluid, or distention. Negative sonographic Lopez sign.Common bile duct measures 0.5 cm, within normal limits. No intrahepatic biliary ductal dilatation. PANCREAS: Incompletely visualized due to overlyingbowel gas. The partially visualized pancreatic neck and body are normal. PERITONEUM: No free fluid. RIGHT KIDNEY: Normal in size. No hydronephrosis. No sonographically evident solid mass lesion. IMPRESSION: Diffuse fatty infiltration of the liver. Signed: Hayden S[facility] Verified Date/Time: 08/05/2018 08:36:42 Reading Location: [address] Ultrasound Reading Room [id number] 07:05:00 Test Item Value Reference Range Interpretation Comments PHOSPHORUS (BEAKER) (test code = 2.1 mg/dL 2.3-4.7 L 604) [id number] 07:05:00 Test Item Value Reference Range Interpretation Comments MAGNESIUM (BEAKER) (test code = 2.2 mg/dL 1.6-2.6 627) BASIC METABOLIC [id number] 07:05:00 Test Item Value Reference Range Interpretation [...] APPLICABLE FOR DIALYSIS PATIEN TS. HEPATIC FUNCTION [id number] 07:05:00 Test Item Value Reference Range Interpretation [...] code = 17 U/L 6-55 347) TROPONIN [id number] 07:03:00 Test Item Value Reference Range Interpretation Comments TROPONIN I (BEAKER) (test code = 397) < ng/mL 0.00-0.03 HEMOGLOBIN AND [id number] 06:11:00 Test Item Value Reference Range Interpretation Comments HEMOGLOBIN (BEAKER) (test code = 10.1 GM/DL 13.7-17.5 L 410) HEMATOCRIT (BEAKER) (test code = 31.4 % 40.1-51.0 L 411) CBC W/PLT COUNT & AUTO [id number] 06:11:00 Test Item Value Reference Range Interpretation [...] PERCENT (BEAKER) (test code = 2801) POCT-GLUCOSE [id number] 20:44:00 Test Item Value Reference Range Interpretation Comments POC-GLUCOSE METER 149 mg/dL 70-110 H TESTED AT [facility] 67[address] ([facility]) (test [facility] = [facility] [place] 1538) [address] RAD, CHEST, 1 VIEW, NON [id number] 20:38:00Reason for exam:->SOBShould this be performed at the bedside?->YesFINAL REPORT History: Shortness of breath. Comparison: None. Findings: A singleview of the chest is submitted. The cardiomediastinal contours are unremarkable. Retrocardiac opacity in the left lung may reflect atelectasis but pneumonitis should be excluded clinically. There is nopneumothorax, large pleural effusion, evidence of overt pulmonary edema or acute bony abnormality. Signed: Fede Skelton Verified Date/Time: 08/04/2018 20:38:15 Reading Location: [address] Reading Room TROPONIN [id number] 20:02:00 Test Item Value Reference Range Interpretation Comments TROPONIN I (BEAKER) (test code = 397) < ng/mL 0.00-0.03 POCT-GLUCOSE [id number] 19:55:00 Test Item Value Reference Range Interpretation Comments POC-GLUCOSE METER 99 mg/dL 70-110 TESTED AT [facility] [address] ([facility]) (test code = [facility] Rafaela [facility] [address] 1538) POCT-GLUCOSE [id number] 19:15:00 Test Item Value Reference Range Interpretation Comments POC-GLUCOSE METER 129 mg/dL 70-110 H TESTED AT [facility] [address] ([facility]) (test code = [facility] Rafaela [facility] 1538) [address] [id number] 18:38:00 Test Item Value Reference Range Interpretation Comments MAGNESIUM (BEAKER) 2.2 mg/dL 1.6-2.6 Specimen slightly (test code = 627) hemolyzed BASIC METABOLIC [id number] 18:38:00 Test Item Value Reference Range Interpretation [...] NOT APPLICABLE FOR DIALYSIS PATIEN TS. PROTHROMBIN [id number] 18:12:00 Test Item Value Reference Range Interpretation Comments PROTIME (BEAKER) (test code = 16.1 seconds 11.7-14.7 H 759) INR (BEAKER) (test code = 370) 1.3 <=5.9 RECOMMENDED COUMADIN/WARFARIN INR THERAPY RANGESSTANDARD DOSE: 2.0 - 3.0 Includes: PROPHYLAXIS for venous thrombosis, systemic embolization; TREATMENT for venous thrombosis and/or pulmonary embolus.HIGH RISK: Target INR is 2.5-3.5 for patients with mechanical heart valves.HEMOGLOBIN AND [id number] 18:05:00 Test Item Value Reference Range Interpretation Comments HEMOGLOBIN (BEAKER) (test code = 9.1 GM/DL 13.7-17.5 L 410) HEMATOCRIT (BEAKER) (test code = 28.1 % 40.1-51.0 L 411) POCT-LACTIC ACID, [id number] 17:59:00 Test Item Value Reference Range Interpretation Comments POC-LACTIC ACID, 2.0 mmol/L 0.9-1.7 H TESTED AT [facility] [address] [place] (BEAKER) (test [place] code = 2805) [address] POCT-GLUCOSE [id number] 17:06:00 Test Item Value Reference Range Interpretation Comments POC-GLUCOSE METER 85 mg/dL 70-110 TESTED AT [facility] [address] (BEAKER) (test code = [place] [address] 1538) CBC W/PLT COUNT & AUTO [id number] 16:06:00 Test Item Value Reference Range Interpretation [...] PERCENT (BEAKER) (test code = 2801) POCT-GLUCOSE [id number] 11:55:00 Test Item Value Reference Range Interpretation Comments POC-GLUCOSE METER 350 mg/dL 70-110 H Notified Rafaela Gibbs MD/TESTED (BEAKER) (test code = AT [facility] [address] 1538) [facility] [address] POCT-GLUCOSE [id number] 07:38:00 Test Item Value Reference Range Interpretation Comments POC-GLUCOSE METER 221 mg/dL 70-110 H TESTED AT [facility] [address] (BEAKER) (test code = [address] [place] [address]) [address] [id number] 07:01:00 Test Item Value Reference Range Interpretation Comments MAGNESIUM (BEAKER) 2.2 mg/dL 1.6-2.6 Specimen slightly (test code = 627) hemolyzed [id number] 07:01:00 Test Item Value Reference Range Interpretation Comments PHOSPHORUS (BEAKER) 3.4 mg/dL 2.3-4.7 Specimen slightly (test code = 604) hemolyzed BASIC METABOLIC [id number] 07:01:00 Test Item Value Reference Range Interpretation [...] APPLICABLE FOR DIALYSIS PATIEN TS. HEPATIC FUNCTION [id number] 07:01:00 Test Item Value Reference Range Interpretation [...] (test code = 347) hemolyzed HEMOGLOBIN AND [id number] 06:32:00 Test Item Value Reference Range Interpretation Comments HEMOGLOBIN (BEAKER) (test code = 9.2 GM/DL 13.7-17.5 L 410) HEMATOCRIT (BEAKER) (test code = 28.1 % 40.1-51.0 L 411) [id number] 02:43:00 Test Item Value Reference Range Interpretation Comments FERRITIN (BEAKER) (test code = 361) 164 ng/mL 5-275 VITAMIN B12 AND [id number] 02:43:00 Test Item Value Reference Range Interpretation [...] L (test code = 2590) COMPREHENSIVE METABOLIC [id number] 00:56:00 Test Item Value Reference Range Interpretation [...] NOT APPLICABLE FOR DIALYSIS PATIEN TS. PROTHROMBIN [id number] 00:50:00 Test Item Value Reference Range Interpretation Comments PROTIME (BEAKER) (test code = 15.6 seconds 11.7-14.7 H 759) INR (BEAKER) (test code = 370) 1.2 <=5.9 RECOMMENDED COUMADIN/WARFARIN INR THERAPY RANGESSTANDARD DOSE: 2.0 - 3.0 Includes: PROPHYLAXIS for venous thrombosis, systemic embolization; TREATMENT for venous thrombosis and/or pulmonary embolus.HIGH RISK: Target INR is 2.5-3.5 for patients with mechanical heart valves.CBC W/PLT COUNT & AUTO [id number] 00:35:00 Test Item Value Reference Range Interpretation [...] NEUTROPHILS ABSOLUTE COUNT 4.21 K/ L 1.78-5.38 ([facility]) (test code = 670) LYMPHOCYTES ABSOLUTE COUNT 1.26 K/ L 1.32-3.57 L ([facility]) (test code = 414) MONOCYTES ABSOLUTE COUNT ([facility]) 0.42 K/ L 0.30-0.82 (test code = 415) EOSINOPHILS ABSOLUTE COUNT 0.15 K/ L 0.04-0.54 ([facility]) (test code = 416) BASOPHILS ABSOLUTE COUNT ([facility]) 0.03 K/ L 0.01-0.08 (test code = 417) IMMATURE GRANULOCYTES-RELATIVE 0 % 0-1 PERCENT ([facility]) (test code = 2802) POCT-GLUCOSE [id number] 23:55:00 Test Item Value Reference Range Interpretation Comments POC-GLUCOSE METER 245 mg/dL 70-110 H TESTED AT [facility] 6727 ([facility]) (test code = [place] 1538) [address]
[2022-04-24] MEDS ORDERED: TETANUS & DIPHTHERIA TOX,ADULT 0.5 ML VIAL ONE (15:34)
--- NOTE | 2022-04-24 17:01 | RAD REPORT ---
EXAM DESCRIPTION: RAD - Knee Left 3 View - 04/24/2022 4:21 pm CLINICAL HISTORY: knee pain,fall COMPARISON: Knee Left 3 View dated 02/08/2017 FINDINGS: No fracture, dislocation or periosteal reaction.Medial and lateral compartments are narrow ed slightly compared to 2017. Medial compartment marginal spurs are present. There is spurring along the articular margins of the patella with narrowing of the patellofemoral joint space. Small joint ef fusion is present. Laceration changes are evident along the superior margin of the patella. No foreig n body is identified. Extension into the joint space is not suspected. Quadriceps tendon is not gross ly abnormal on plain film. 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 Degenerative leong ges are progressive from 2017. Soft tissue laceration along the superior margin of the patella. Intra-articular extension is not richy pected. No foreign body identified.
--- NOTE | 2022-04-24 17:29 | ER ---
Nurse's Notes [facility] Name: Anthony Rooney Age: 71 yrs Sex: Male : 1950 Arrival Date: 04/24/2022 Time: 15:09 Bed 3 Private MD: Diagnosis: Laceration of the Left Lower Extremity Presentation: 04/24 15:21 Chief complaint: Patient states: was putting away the water hose when slipped in the vg1 mud and landed on Left knee on a piece of metal. Also stated has had three beers today. Coronavirus screen: Vaccine status: Client denies travel out of the [place] in the last 14 days. Ebola Screen: Patient denies exposure to infectious person. Patient denies travel to an Ebola-affected area in the 21 days before illness onset. Initial Sepsis Screen: Does the patient meet any 2 criteria? No. Patient's initial sepsis screen is negative. Does the patient have a suspected source of infection? No. Patient's initial sepsis screen is negative. Risk Assessment: Do you want to hurt yourself or someone else? Patient reports no desire to harm self or others. Onset of symptoms was April 24, 2022. 15:21 Method Of Arrival: Wheelchair vg1 15:21 Acuity: NAE 3 vg1 Triage Assessment: 15:24 General: Appears uncomfortable, Behavior is calm, cooperative. Pain: Complains of pain vg1 in left knee Pain currently is 8 out of 10 on a pain scale. Pain began 30 min ago. Neuro: Level of Consciousness is awake, alert, obeys commands, Oriented to person, place, time, situation, Reports dizziness. Derm: Skin is pink, warm \T\ dry. Injury Description: Laceration sustained to left knee is jagged, not bleeding. Historical: - Home Meds: 15:24 lisinopril 20 mg Oral tab 1 tab twice a day [Active]; metformin 1,000 mg Oral tab 1 tab vg1 2 times per day [Active]; - PMHx: 15:24 Diabetes - IDDM; High Cholesterol; Hypertension; Ulcers; vg1 - Immunization history:: Client reports receiving the 2nd dose of the Covid vaccine. - Social history:: Smoking status: Patient denies any tobacco usage or history of. Screenin:13 Abuse screen: Denies threats or abuse. Nutritional screening: No deficits noted. bm7 Tuberculosis screening: No symptoms or risk factors identified. Fall Risk None identified. Assessment: 15:20 Reassessment: PA at bedside. bm7 16:07 Reassessment: Patient and/or family updated on plan of care and expected duration. Pain bm7 level reassessed. Patient is alert, oriented x 3, equal unlabored respirations, skin warm/dry/pink. 16:13 General: Appears in no apparent distress. comfortable, Behavior is calm, cooperative, bm7 appropriate for age. Pain: Complains of pain in left knee Pain does not radiate. Neuro: No deficits noted. Cardiovascular: No deficits noted. Respiratory: No deficits noted. GI: No deficits noted. : No deficits noted. No signs and/or symptoms were reported regarding the genitourinary system. EENT: No deficits noted. No signs and/or symptoms were reported regarding the EENT system. Derm: Skin is intact, is healthy with good turgor, Skin is dry, Wound noted left knee. Musculoskeletal: Reports pain in left knee. Injury Description: Laceration sustained to left knee. Vital Signs: 15:21 BP 208 / 112; Pulse 89; Resp 18; Pulse Ox 99% on R/A; Weight 87.09 kg; Height 5 ft. 9 vg1 in. (175.26 cm); Pain 10/10; 16:13 BP 171 / 85; Pulse 99; Resp 16; Pulse Ox 99% on R/A; bm7 16:54 BP 156 / 85; Pulse 80; Resp 16; Pulse Ox 99% on R/A; bm7 15:21 Body Mass Index 28.35 (87.09 kg, 175.26 cm) vg1 ED Course: 15:09 Patient arrived in ED. mr 15:12 Erik Thomas PA is PHCP. jmm 15:12 Zhang Vega MD is Attending Physician. jmm 15:20 Teresa Lewis, RN is Primary Nurse. bm7 15:23 Triage completed. vg1 15:24 Arm band placed on. vg1 16:07 No apparent distress. Resting quietly. Awaiting for x-ray. bm7 16:13 Patient has correct armband on for positive identification. Placed in gown. Bed in low bm7 position. Call light in reach. Side rails up X 1. Adult w/ patient. 16:13 Patient maintains SpO2 saturation greater than 95% on room air. bm7 16:13 X-ray(s) taken. bm7 16:23 Knee Left 3 View XRAY In Process Unspecified. EDMS 16:32 Assist provider with laceration repair on left knee that was between 2.6 to 7.5 cm bm7 using sutures. Set up tray. Performed by Erik CHONG. 16:53 Dressings: Kerlix X 1; left knee 4X4s X 1; left knee. bm7 16:54 Assisted with urinal. bm7 17:43 Patient did not have IV access during this emergency room visit. 6 Administered Medications: 15:27 Drug: Tetanus-Diphtheria Toxoid Adult 0.5 ml {Group Segment Consultant: [employer]. Exp: bm7 01/17/2024. Lot #: [id number]. } Route: IM; Site: left deltoid; 17:03 Follow up: Response: No adverse reaction 7 Medication: 16:13 Vaccine Information Statement (VIS) provided today. Questions and/or concerns banner addressed. VIS edition date: April 24, 2022. Outcome: 17:28 Discharge ordered by . [facility] 17:43 Discharged to home via wheelchair. [facility] 17:43 Condition: improved 17:43 Discharge instructions given to patient, family, Instructed on discharge instructions, follow up and referral plans. Demonstrated understanding of instructions, follow-up care, medications, wound care, Prescriptions given X 1. 17:43 Patient left the ED. 6 Signatures: Dispatcher [employer] EDMS Erik Thomas PA PA [facility] Luz Mcgregor Kandace Mccall, RN RN vg1 Teresa Lewis, RN RN 7 Megan Mo, MONIKA RN 6 Corrections: (The following items were deleted from the chart) 15:24 15:21 Chief complaint: Patient states: was putting away the water hose when slipped in vg1 the mud and landed on Left knee on a piece of metal. vg1 15:24 15:21 BP 208 / 112; Pulse 89bpm; Resp 18bpm; Pulse Ox 99% RA; vg1 vg1
--- NOTE | 2022-04-24 17:29 | EDPHYS ---
Physician Documentation [facility] Name: Anthony Rooney Age: 71 yrs Sex: Male : 1950 Arrival Date: 04/24/2022 Time: 15:09 Bed 3 Private MD: ED Physician Zhang Vega HPI: 04/24 15:21 This 71 yrs old Male presents to ER via Wheelchair with complaints of Fall jmm Injury. 15:21 Details of fall: The patient fell from an upright position, while walking. Onset: The jmm symptoms/episode began/occurred acutely. -year-old male with history of diabetes mellitus, hyperlipidemia, hypertension the presents emerged department with a laceration to the left fall denies other injury. Denies hitting his head. Denies neck pain.. Historical: - Home Meds: 15:24 lisinopril 20 mg Oral tab 1 tab twice a day [Active]; metformin 1,000 mg Oral tab 1 tab vg1 2 times per day [Active]; - PMHx: 15:24 Diabetes - IDDM; High Cholesterol; Hypertension; Ulcers; vg1 - Immunization history:: Client reports receiving the 2nd dose of the Covid vaccine. - Social history:: Smoking status: Patient denies any tobacco usage or history of. ROS: 15:21 Constitutional: Negative for fever, chills, and weight loss, Cardiovascular: Negative jmm for chest pain, palpitations, and edema, Respiratory: Negative for shortness of breath, cough, wheezing, and pleuritic chest pain. 15:21 MS/extremity: Positive for laceration. 15:21 All other systems are negative. Exam: 15:21 Constitutional: This is a well developed, well nourished patient who is awake, alert, jmm and in no acute distress. Head/Face: atraumatic. Eyes: EOMI, no conjunctival erythema appreciated ENT: Moist Mucus Membranes Neck: Trachea midline, Supple Chest/axilla: Normal chest wall appearance and motion. Cardiovascular: Regular rate and rhythm. No edema appreciated Respiratory: Normal respirations, no respiratory distress appreciated Abdomen/GI: Non distended Back: Normal ROM 15:21 Musculoskeletal/extremity: Full range of motion noted to the left knee, compartments are soft, full dorsalis pedis pulse, neurovascular intact. 15:21 Skin: For similar laceration noted to the left knee, no active bleeding appreciated. 15:21 Neuro: Orientation: is normal, Mentation: is normal, Memory: is normal. 15:21 Psych: Behavior/mood is pleasant, cooperative. Vital Signs: 15:21 BP 208 / 112; Pulse 89; Resp 18; Pulse Ox 99% on R/A; Weight 87.09 kg; Height 5 ft. 9 vg1 in. (175.26 cm); Pain 10/10; 16:13 BP 171 / 85; Pulse 99; Resp 16; Pulse Ox 99% on R/A; bm7 16:54 BP 156 / 85; Pulse 80; Resp 16; Pulse Ox 99% on R/A; bm7 15:21 Body Mass Index 28.35 (87.09 kg, 175.26 cm) vg1 MDM: 15:21 Patient medically screened. [facility] 17:26 Data reviewed: vital signs, nurses notes. Counseling: I had a detailed discussion with martín the patient and/or guardian regarding: the historical points, exam findings, and any diagnostic results supporting the discharge/admit diagnosis, radiology results, the need for outpatient follow up. 04/24 15:21 Order name: Knee Left 3 View XRAY; Complete Time: 17:02 [facility] 04/24 17:03 Order name: Isauro wrap-joint: left knee; Complete Time: 17:17 [facility] Administered Medications: 15:27 Drug: Tetanus-Diphtheria Toxoid Adult 0.5 ml {Video Library Assistant: [employer]. Exp: bm7 01/17/2024. Lot #: [id number]. } Route: IM; Site: left deltoid; 17:03 Follow up: Response: No adverse reaction [facility] Disposition Summary: 04/24/22 17:28 Discharge Ordered Location: Home [facility] Condition: Stable [facility] Diagnosis - Laceration of the Left Lower Extremity [facility] Followup: [facility] - With: Private Physician - When: 10 - 14 days - Reason: Recheck today's complaints, Continuance of care, Re-evaluation by your physician Discharge Instructions: - Discharge Summary Sheet [facility] - Laceration Care, Adult [facility] Forms: - Medication Reconciliation Form [facility] - Thank You Letter [facility] - Antibiotic Education [facility] - Prescription Opioid Use [facility] Prescriptions: - Doxycycline Hyclate 100 mg Oral Tablet - take 1 tablet by ORAL route every 12 hours; 20 tablet; Refills: 0, Product [facility] Selection Permitted Addendum: 04/26/2022 14:08 Attestation: The patient's history, exam findings, diagnostics, and a summary of any j r11 interventions or procedures was reviewed in detail with Erik CHONG. Signatures: Dispatcher [employer] EDMS Erik Thomas PA PA jmm Garcia, Victoria, RN RN vg1 Teresa Lewis RN RN bm7 Zhang Vega MD MD [id number] Corrections: (The following items were deleted from the chart) 04/24 15:31 15:24 Knee Right 3 View+RAD.RAD.BRZ ordered. EDMS EDMS
[2022-04-24 18:04] VITALS: O2SAT 99
[2022-04-24 18:09] VITALS: BP 156/85
== END 2022-04-24 17:43 | disposition home or self-care (01) ==
LOC: ER 15:06
PROC: 0JQP0ZZ Repair Left Lower Leg Subcutaneous Tissue and Fascia, Open Approach (ICD-10-PCS; principal; 2022-04-24)
DX: S81.812A Laceration without foreign body, left lower leg, initial encounter (principal); E11.9 Type 2 diabetes mellitus without complications; I10 Essential (primary) hypertension; Z23 Encounter for immunization
CPT/HCPCS: 90471; 90714; 99284

== ENCOUNTER 2023-03-03 17:35 | Emergency (ER) | payer OTHER ==
--- OUTSIDE RECORDS SUMMARY | 2023-03-03 17:40 | XMS REPORT | Continuity of Care Document ---
:1950 Author Organization [facility] t Address 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 mellitus mellitus 00:00: Medica l without without 00 Center complicati complicati on, on, without without long-term long-term current current use of use of insulin insulin Hyperlipid Hyperlipi Problem Active 2021-11-20 [facility] emia demia 23:08:27 l (disorder) (disorder) He rmann Active Problem 11/20/2021 [facility] Hypertensi Hypertens Problem Active 2021-11-20 Memoria ve pauline 23:08:27 l disorder, disorder, Herm ally systemic systemic arterial arterial (disorder) (disorder) Active Problem 11/20/2021 [facility] Ptosis of Ptosis of Problem Active 2021-11-20 [facility] eyelid eyelid 23:08:27 l (disorder) (disorder) He rmann Active Problem 11/20/2021 [facility] 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 [place] weakness weakness (disorder) (disorder) Active Problem 11/20/2021 [facility] Arthritis Arthritis Problem Resolve 2021-11-20 Memoria (disorder) (disorder) d 23:08:27 l Resolved [place] Problem 11/20/2021 [facility] Disease Disease Problem Resolve 2021-11-20 M emoria caused by caused by d 23:08:27 l 2018-nCoV nCoV Herm ally Resolved Problem 11/20/2021 [facility] Disorder Disorder Problem Resolve 2021-11-20 Memoria of eye of eye d 23:08:27 l proper proper Aleksandar (disorder) (disorder) Resolved [facility] [id number] Mixed Problem Common hyperlipid Spirit emia - [facility] [id number] Essential Problem Comm on hypertensi Spirit on - [facility] [id number] nursing home Problem Com mon (current) Spirit use of - [facility] insulin [facility] [id number] Type 2 Problem Common diabetes Spirit mellitus - [facility] with [facility] without Center long-term current use of insulin [id number] Asymptomat Problem Co mmon ic Spirit hypertensi - [facility] ve urgency [facility] [id number] 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 - [facility] Center itis type [id number] GERD Problem Common without Spirit esophagiti - [facility] s [facility] Allergies, Adverse Reactions, Alerts Allergy Allergy Status Severity Reaction(s) Onset Inactive Treating Comm ents Source Name Type Date Date Clinician No Known No Known Active Memori a Medicati Medicati l on on [place] Allergie Allergie s s Social History Social Habit Start Date Stop Date Quantity Comments Source History of Tobacco Common Spirit - Use [facility] Social History 2021-10-20 2021-10-20 [facility] 21:28:53 21:28:53 Alcohol intake 2018-08-08 2018-08-08 [facility] (finding) Tobacco use and 2018-08-05 2018-08-05 Smokeless tobacco [facility] exposure 00:00[facility]00 00:00:00 non-user Medical Center History [facility] 2018-08-04 2018-08-[address] [facility] Alcohol Frequency 00:00:00 00:00:00 Medical Center History [facility] 2018-08-04 2018-08-[address] [facility] Alcohol Std Drinks 00:00:00 00:00:00 Medica l Center History [facility] 2018-08-04 2018-08-[address] [facility] Alcohol Binge 00:00:00 00:00:[address] Alcohol Comment 2018-08-04 2018-08-04 Patient stated [facility]:00 quit drinking a Medical C enter week ago Sex Assigned At [address] [facility] Candida kes 00:00:00 00:00:00 Medical Center Smoking Status Start Date Stop Date Source Never Smoker Common Spirit - [facility] Medications Ordered Filled Start Stop Current Ordering Indication Dosage Frequency Signature Comments Components Source Medication Medication Date Date Medication? Clinician (SIG) Name Name Amoxicillin Amoxicillin 2021- No 1{table BID Amoxicilli -Pot -Pot 05-04- t} n-Pot Clavulanate Clavulanate 00:00: 00:00 Clavulanat 875-125 MG 875-125 MG 00 :00 e 875-125 MG Victoza 18 Victoza 18 2021- No QD Victoza 18 MG/3ML MG/3ML 8-08 10-07 MG/3ML 00:00: 00:00 00 :00 Victoza 18 Victoza 18 2021- No QD Victoza 18 MG/3ML MG/3ML 8-08 10-07 MG/3ML 00:00: 00:00 00 :00 Victoza 18 Victoza 18 2021- No QD Victoza 18 MG/3ML MG/3ML 8-08 10-07 MG/3ML 00:00: 00:00 00 :00 Hydrochloro Yes TAKE 1 Rafael jacques thiazide 25 2-07 TABLET BY l MG / 21:30: MOUTH [place] Lisinopril 00 TWICE A 20 MG Oral DAY Tablet Hydrochloro Yes TAKE 1 Rafael jacques thiazide 25 2-07 TABLET BY l MG / 21:30: MOUTH Aleksandar Lisinopril 00 TWICE A 20 MG Oral DAY Tablet MetFORMIN Yes 0 Memoria (Eqv-Glucop 2-07 Refill(s) l nito XR) 21:30: [place] 500 mg oral 00 tablet, extended release MetFORMIN Yes 0 Memoria (Eqv-Glucop 2-07 Refill(s) l nito XR) 21:30: [place] 500 mg oral 00 tablet, extended release 3 ML Yes 20 unit, Memoria insulin 2-07 SUB-Q, l detemir 100 21:29: Bedtime, # Aleksandar UNT/ML 00 3 mL, 3 Prefilled Refill(s) Syringe [Levemir] 3 ML Yes 20 unit, Memoria insulin 2-07 SUB-Q, l detemir 100 21:29: Bedtime, # [place] UNT/ML 00 3 mL, 3 Prefilled Refill(s) Syringe [Levemir] MetFORMIN MetFORMIN Yes Marquis 2 tablets Common HCl ER HCl ER 05-14 Mueller with meal Spiri t 00:00: - [facility] Lisinopril- Lisinopril- Yes Marquis 1 tablet Common Hydrochloro Hydrochloro 05-14 Mueller Spirit thiazide thiazide 00:00: - [facility] metFORMIN 2017-09 Yes 500mg Take [address] (GLUCOPHAGE 1-23 mg by [facility] ) 500 MG 15:04: mouth 2 Medica l tablet 06 (two) Center times daily with breakfast and dinner. simvastatin 2017-09 Yes 40mg QD Take [address] (ZOCOR) 40 1-23 by mouth [facility] MG tablet 15:04: nightly. Medi britni [address] [place] [address] metFORMIN 2017-09 Yes 500mg Take [address] (GLUCOPHAGE 1-23 mg by [facility] ) 500 MG 15:04: mouth 2 Medica l tablet 06 (two) Center times daily with breakfast and dinner. simvastatin 2017-09 Yes 40mg QD Take [address] (ZOCOR) 40 1-23 by mouth [facility] MG tablet 15:04: nightly. Medi britni [address] [place] [address] 2017-09 Yes 1.2mg QD Inject 1.[address] 2-YAQUELIN 0.6 0-23 mg [facility] mg/0.1 mL 00:00: subcutaneo Me dical (18 mg/3 00 usly Center mL) PnIj daily. VICTOZA 2017-09 Yes 1.2mg QD Inject 1.[address] 2-YAQUELIN 0.6 0-23 mg [facility] mg/0.1 mL 00:00: subcutaneo Me dical (18 mg/3 00 usly Center mL) PnIj daily. lisinopril 2017-09 Yes 20mg Take [address] (PRINIVIL,Z 0-08 by mouth Luke s ESTRIL) 20 00:00: every 12 Med ical MG tablet 00 (twelve) Center hours. lisinopril 2017-09 Yes 20mg Take [address] (PRINIVIL,Z 0-08 by mouth Luke s ESTRIL) 20 00:00: every 12 Med ical MG tablet 00 (twelve) Center hours. Diclofenac Diclofenac Yes Marquis 1 tablet Common Sodium Sodium Mueller [facility] Walker Yes Marquis as Common Mueller directed [facility] Metformin Metformin Yes Marquis 1 tablet Common HCl HCl Mueller with a Spirit meal [facility] Pantoprazol Pantoprazol Yes Marquis 1 tablet Common e Sodium e Sodium Mueller [facility] Simvastatin Simvastatin Yes Marquis 1 tablet Common Mueller in the Spirit evening [facility] Lisinopril Lisinopril Yes Marquis 1 tablet Common Mueller [facility] Lisinopril- Lisinopril- No 1{table BID Lisinopril hydroCHLORO hydroCHLORO t} -hydroCHLO thiazide thiazide ROthiazide 20-25 MG 20-25 MG 20-25 MG Simvastatin Simvastatin No 1{table QD Simvastati 80 MG 80 MG t_in_th n 80 MG e_eveni ng} Tradjenta 5 Tradjenta 5 No 1{table QD Tradjenta MG MG t} 5 MG Diclofenac Diclofenac No 1{table BID Diclofenac Sodium 75 Sodium 75 t} Sodium 75 MG MG MG Metoprolol Metoprolol No Metoprolol Tartrate 50 Tartrate 50 Tartrate MG MG 50 MG Metoprolol Metoprolol No BID Metoprolol Tartrate Tartrate Tartrate 100 MG 100 MG 100 MG Metoprolol Metoprolol No BID Metoprolol Tartrate Tartrate Tartrate 100 MG 100 MG 100 MG Pantoprazol Pantoprazol No 1{table QD Pantoprazo e Sodium 40 e Sodium 40 t} le Sodium MG MG 40 MG Levemir Levemir No Levemir FlexTouch FlexTouch FlexTouch 100 UNIT/ML 100 UNIT/ML 100 UNIT/ML Lisinopril- Lisinopril- No Lisinopril hydroCHLORO hydroCHLORO -hydroCHLO thiazide thiazide ROthiazide 20-12.5 MG 20-12.5 MG 20-12.5 MG Metoprolol Metoprolol No Metoprolol Tartrate Tartrate Tartrate 100 MG 100 MG 100 MG Pantoprazol Pantoprazol No 1{table QD Pantoprazo e Sodium 40 e Sodium 40 t} le Sodium MG MG 40 MG Simvastatin Simvastatin No 1{table QD Simvastati 80 MG 80 MG t_in_ n 80 MG e_eveni ng} Diclofenac Diclofenac No 1{table BID Diclofenac Sodium 75 Sodium 75 t} Sodium 75 MG MG MG Tradjenta 5 Tradjenta 5 No 1{table QD Tradjenta MG MG t} 5 MG Lisinopril- Lisinopril- No Lisinopril hydroCHLORO hydroCHLORO -hydroCHLO thiazide thiazide ROthiazide 20-25 MG 20-25 MG 20-25 MG Levemir Levemir No QD Levemir FlexTouch FlexTouch FlexTouch 100 UNIT/ML 100 UNIT/ML 100 UNIT/ML Diclofenac Diclofenac No Diclofenac Sodium 1 % Sodium 1 % Sodium 1 % Metoprolol Metoprolol No Metoprolol Tartrate 50 Tartrate 50 Tartrate MG MG 50 MG metFORMIN metFORMIN No BID metFORMIN HCl ER 500 HCl ER 500 HCl ER 500 MG MG MG hydrALAZINE hydrALAZINE No 1{table TID hydrALAZIN HCl 50 MG HCl 50 MG t_with_ E HCl 50 food} MG hydrALAZINE hydrALAZINE No 1{table TID hydrALAZIN HCl 50 MG HCl 50 MG t_with_ E HCl 50 food} MG Lisinopril- Lisinopril- No 1{table BID Lisinopril hydroCHLORO hydroCHLORO t} -hydroCHLO thiazide thiazide ROthiazide 20-25 MG 20-25 MG 20-25 MG Simvastatin Simvastatin No 1{table QD Simvastati 80 MG 80 MG t_in_th n 80 MG e_eveni ng} Lisinopril- Lisinopril- No Lisinopril hydroCHLORO hydroCHLORO -hydroCHLO thiazide thiazide ROthiazide 20-12.5 MG 20-12.5 MG 20-12.5 MG Tradjenta 5 Tradjenta 5 No 1{table QD Tradjenta MG MG t} 5 MG metFORMIN metFORMIN No BID metFORMIN HCl ER 500 HCl ER 500 HCl ER 500 MG MG MG Metoprolol Metoprolol No Metoprolol Tartrate 50 Tartrate 50 Tartrate MG MG 50 MG Lisinopril- Lisinopril- No Lisinopril hydroCHLORO hydroCHLORO -hydroCHLO thiazide thiazide ROthiazide 20-25 MG 20-25 MG 20-25 MG Diclofenac Diclofenac No 1{table BID Diclofenac Sodium 75 Sodium 75 t} Sodium 75 MG MG MG hydrALAZINE hydrALAZINE No 1{table TID hydrALAZIN HCl 50 MG HCl 50 MG t_with_ E HCl 50 food} MG Pantoprazol Pantoprazol No 1{table QD Pantoprazo e Sodium 40 e Sodium 40 t} le Sodium MG MG 40 MG Pantoprazol Pantoprazol No 1{table QD Pantoprazo e Sodium 40 e Sodium 40 t} le Sodium MG MG 40 MG Levemir Levemir No Levemir FlexTouch FlexTouch FlexTouch 100 UNIT/ML 100 UNIT/ML 100 UNIT/ML Diclofenac Diclofenac No Diclofenac Sodium 1 % Sodium 1 % Sodium 1 % Levemir Levemir No QD Levemir FlexTouch FlexTouch FlexTouch 100 UNIT/ML 100 UNIT/ML 100 UNIT/ML Metoprolol Metoprolol No BID Metoprolol Tartrate Tartrate Tartrate 100 MG 100 MG 100 MG Metoprolol Metoprolol No Metoprolol Tartrate Tartrate Tartrate 100 MG 100 MG 100 MG Tradjenta 5 Tradjenta 5 No 1{table QD Tradjenta MG MG t} 5 MG Levemir Levemir No Levemir FlexTouch FlexTouch FlexTouch 100 UNIT/ML 100 UNIT/ML 100 UNIT/ML Lisinopril- Lisinopril- No 1{table BID Lisinopril hydroCHLORO hydroCHLORO t} -hydroCHLO thiazide thiazide ROthiazide 20-25 MG 20-25 MG 20-25 MG Diclofenac Diclofenac No 1{table BID Diclofenac Sodium 75 Sodium 75 t} Sodium 75 MG MG MG Lisinopril- Lisinopril- No Lisinopril hydroCHLORO hydroCHLORO -hydroCHLO thiazide thiazide ROthiazide 20-25 MG 20-25 MG 20-25 MG Metoprolol Metoprolol No Metoprolol Tartrate 50 Tartrate 50 Tartrate MG MG 50 MG Pantoprazol Pantoprazol No 1{table QD Pantoprazo e Sodium 40 e Sodium 40 t} le Sodium MG MG 40 MG Diclofenac Diclofenac No 1{appli BID Diclofenac Sodium 1 % Sodium 1 % cation_ Sodium 1 % to_affe cted_ar ea} Lisinopril- Lisinopril- No Lisinopril hydroCHLORO hydroCHLORO -hydroCHLO thiazide thiazide ROthiazide 20-12.5 MG 20-12.5 MG 20-12.5 MG Metoprolol Metoprolol No Metoprolol Tartrate Tartrate Tartrate 100 MG 100 MG 100 MG metFORMIN metFORMIN No BID metFORMIN HCl ER 500 HCl ER 500 HCl ER 500 MG MG MG hydrALAZINE hydrALAZINE No 1{table BID hydrALAZIN HCl 100 MG HCl 100 MG t_with_ E HCl 100 food} MG hydrALAZINE hydrALAZINE No 1{table TID hydrALAZIN HCl 50 MG HCl 50 MG t_with_ E HCl 50 food} MG Pantoprazol Pantoprazol No 1{table QD Pantoprazo e Sodium 40 e Sodium 40 t} le Sodium MG MG 40 MG Levemir Levemir No QD Levemir FlexTouch FlexTouch FlexTouch 100 UNIT/ML 100 UNIT/ML 100 UNIT/ML Diclofenac Diclofenac No Diclofenac Sodium 1 % Sodium 1 % Sodium 1 % Simvastatin Simvastatin No 1{table QD Simvastati 80 MG 80 MG t_in_th n 80 MG e_eveni ng} Metoprolol Metoprolol No BID Metoprolol Tartrate Tartrate Tartrate 100 MG 100 MG 100 MG Diclofenac Diclofenac No Diclofenac Sodium 1 % Sodium 1 % Sodium 1 % Lisinopril- Lisinopril- No Lisinopril hydroCHLORO hydroCHLORO -hydroCHLO thiazide thiazide ROthiazide 20-25 MG 20-25 MG 20-25 MG Metoprolol Metoprolol No Metoprolol Tartrate Tartrate Tartrate 100 MG 100 MG 100 MG Simvastatin Simvastatin No 1{table QD Simvastati 80 MG 80 MG t_in_th n 80 MG e_eveni ng} Lisinopril- Lisinopril- No Lisinopril hydroCHLORO hydroCHLORO -hydroCHLO thiazide thiazide ROthiazide 20-12.5 MG 20-12.5 MG 20-12.5 MG metFORMIN metFORMIN No BID metFORMIN HCl ER 500 HCl ER 500 HCl ER 500 MG MG MG hydrALAZINE hydrALAZINE No 1{table TID hydrALAZIN HCl 50 MG HCl 50 MG t_with_ E HCl 50 food} MG Levemir Levemir No Levemir FlexTouch FlexTouch FlexTouch 100 UNIT/ML 100 UNIT/ML 100 UNIT/ML Metoprolol Metoprolol No BID Metoprolol Tartrate Tartrate Tartrate 100 MG 100 MG 100 MG Pantoprazol Pantoprazol No 1{table QD Pantoprazo e Sodium 40 e Sodium 40 t} le Sodium MG MG 40 MG Diclofenac Diclofenac No 1{appli BID Diclofenac Sodium 1 % Sodium 1 % cation_ Sodium 1 % to_affe cted_ar ea} Levemir Levemir No QD Levemir FlexTouch FlexTouch FlexTouch 100 UNIT/ML 100 UNIT/ML 100 UNIT/ML Metoprolol Metoprolol No Metoprolol Tartrate 50 Tartrate 50 Tartrate MG MG 50 MG Diclofenac Diclofenac No 1{table BID Diclofenac Sodium 75 Sodium 75 t} Sodium 75 MG MG MG hydrALAZINE hydrALAZINE No 1{table BID hydrALAZIN HCl 100 MG HCl 100 MG t_with_ E HCl 100 food} MG Pantoprazol Pantoprazol No 1{table QD Pantoprazo e Sodium 40 e Sodium 40 t} le Sodium MG MG 40 MG Lisinopril- Lisinopril- No 1{table BID Lisinopril hydroCHLORO hydroCHLORO t} -hydroCHLO thiazide thiazide ROthiazide 20-25 MG 20-25 MG 20-25 MG Diclofenac Diclofenac No Diclofenac Sodium 1 % Sodium 1 % Sodium 1 % Lisinopril- Lisinopril- No Lisinopril hydroCHLORO hydroCHLORO -hydroCHLO thiazide thiazide ROthiazide 20-25 MG 20-25 MG 20-25 MG Metoprolol Metoprolol No Metoprolol Tartrate Tartrate Tartrate 100 MG 100 MG 100 MG Simvastatin Simvastatin No 1{table QD Simvastati 80 MG 80 MG t_in_th n 80 MG e_eveni ng} Lisinopril- Lisinopril- No Lisinopril hydroCHLORO hydroCHLORO -hydroCHLO thiazide thiazide ROthiazide 20-12.5 MG 20-12.5 MG 20-12.5 MG metFORMIN metFORMIN No BID metFORMIN HCl ER 500 HCl ER 500 HCl ER 500 MG MG MG hydrALAZINE hydrALAZINE No 1{table TID hydrALAZIN HCl 50 MG HCl 50 MG t_with_ E HCl 50 food} MG Levemir Levemir No Levemir FlexTouch FlexTouch FlexTouch 100 UNIT/ML 100 UNIT/ML 100 UNIT/ML Metoprolol Metoprolol No BID Metoprolol Tartrate Tartrate Tartrate 100 MG 100 MG 100 MG Pantoprazol Pantoprazol No 1{table QD Pantoprazo e Sodium 40 e Sodium 40 t} le Sodium MG MG 40 MG Diclofenac Diclofenac No 1{appli BID Diclofenac Sodium 1 % Sodium 1 % cation_ Sodium 1 % to_affe cted_ar ea} Levemir Levemir No QD Levemir FlexTouch FlexTouch FlexTouch 100 UNIT/ML 100 UNIT/ML 100 UNIT/ML Metoprolol Metoprolol No Metoprolol Tartrate 50 Tartrate 50 Tartrate MG MG 50 MG Diclofenac Diclofenac No 1{table BID Diclofenac Sodium 75 Sodium 75 t} Sodium 75 MG MG MG hydrALAZINE hydrALAZINE No 1{table BID hydrALAZIN HCl 100 MG HCl 100 MG t_with_ E HCl 100 food} MG Pantoprazol Pantoprazol No 1{table QD Pantoprazo e Sodium 40 e Sodium 40 t} le Sodium MG MG 40 MG Lisinopril- Lisinopril- No 1{table BID Lisinopril hydroCHLORO hydroCHLORO t} -hydroCHLO thiazide thiazide ROthiazide 20-25 MG 20-25 MG 20-25 MG Lisinopril- Lisinopril- No Lisinopril hydroCHLORO hydroCHLORO -hydroCHLO thiazide thiazide ROthiazide 20-12.5 MG 20-12.5 MG 20-12.5 MG Simvastatin Simvastatin No 1{table QD Simvastati 80 MG 80 MG t_in_th n 80 MG e_eveni ng} Levemir Levemir No Levemir FlexTouch FlexTouch FlexTouch 100 UNIT/ML 100 UNIT/ML 100 UNIT/ML Lisinopril- Lisinopril- No 1{table BID Lisinopril hydroCHLORO hydroCHLORO t} -hydroCHLO thiazide thiazide ROthiazide 20-25 MG 20-25 MG 20-25 MG Diclofenac Diclofenac No Diclofenac Sodium 1 % Sodium 1 % Sodium 1 % Pantoprazol Pantoprazol No 1{table QD Pantoprazo e Sodium 40 e Sodium 40 t} le Sodium MG MG 40 MG hydrALAZINE hydrALAZINE No 1{table TID hydrALAZIN HCl 50 MG HCl 50 MG t_with_ E HCl 50 food} MG Pantoprazol Pantoprazol No 1{table QD Pantoprazo e Sodium 40 e Sodium 40 t} le Sodium MG MG 40 MG Diclofenac Diclofenac No 1{table BID Diclofenac Sodium 75 Sodium 75 t} Sodium 75 MG MG MG Metoprolol Metoprolol No Metoprolol Tartrate 50 Tartrate 50 Tartrate MG MG 50 MG Diclofenac Diclofenac No 1{appli BID Diclofenac Sodium 1 % Sodium 1 % cation_ Sodium 1 % to_affe cted_ar ea} hydrALAZINE hydrALAZINE No 1{table BID hydrALAZIN HCl 100 MG HCl 100 MG t_with_ E HCl 100 food} MG Levemir Levemir No QD Levemir FlexTouch FlexTouch FlexTouch 100 UNIT/ML 100 UNIT/ML 100 UNIT/ML Metoprolol Metoprolol No BID Metoprolol Tartrate Tartrate Tartrate 100 MG 100 MG 100 MG Metoprolol Metoprolol No Metoprolol Tartrate Tartrate Tartrate 100 MG 100 MG 100 MG metFORMIN metFORMIN No BID metFORMIN HCl ER 500 HCl ER 500 HCl ER 500 MG MG MG Lisinopril- Lisinopril- No Lisinopril hydroCHLORO hydroCHLORO -hydroCHLO thiazide thiazide ROthiazide 20-25 MG 20-25 MG 20-25 MG Diclofenac Diclofenac No Diclofenac Sodium 1 % Sodium 1 % Sodium 1 % Lisinopril- Lisinopril- No Lisinopril hydroCHLORO hydroCHLORO -hydroCHLO thiazide thiazide ROthiazide 20-12.5 MG 20-12.5 MG 20-12.5 MG hydrALAZINE hydrALAZINE No 1{table TID hydrALAZIN HCl 50 MG HCl 50 MG t_with_ E HCl 50 food} MG hydrALAZINE hydrALAZINE No 1{table BID hydrALAZIN HCl 100 MG HCl 100 MG t_with_ E HCl 100 food} MG Levemir Levemir No Levemir FlexTouch FlexTouch FlexTouch 100 UNIT/ML 100 UNIT/ML 100 UNIT/ML Levemir Levemir No QD Levemir FlexTouch FlexTouch FlexTouch 100 UNIT/ML 100 UNIT/ML 100 UNIT/ML Pantoprazol Pantoprazol No 1{table QD Pantoprazo e Sodium 40 e Sodium 40 t} le Sodium MG MG 40 MG Simvastatin Simvastatin No 1{table QD Simvastati 80 MG 80 MG t_in_th n 80 MG e_eveni ng} Metoprolol Metoprolol No Metoprolol Tartrate 50 Tartrate 50 Tartrate MG MG 50 MG Metoprolol Metoprolol No BID Metoprolol Tartrate Tartrate Tartrate 100 MG 100 MG 100 MG Diclofenac Diclofenac No 1{appli BID Diclofenac Sodium 1 % Sodium 1 % cation_ Sodium 1 % to_affe cted_ar ea} metFORMIN metFORMIN No BID metFORMIN HCl ER 500 HCl ER 500 HCl ER 500 MG MG MG Victoza 18 Victoza 18 No QD Victoza 18 MG/3ML MG/3ML MG/3ML Pantoprazol Pantoprazol No 1{table QD Pantoprazo e Sodium 40 e Sodium 40 t} le Sodium MG MG 40 MG Lisinopril- Lisinopril- No 1{table BID Lisinopril hydroCHLORO hydroCHLORO t} -hydroCHLO thiazide thiazide ROthiazide 20-25 MG 20-25 MG 20-25 MG Metoprolol Metoprolol No Metoprolol Tartrate Tartrate Tartrate 100 MG 100 MG 100 MG Diclofenac Diclofenac No 1{table BID Diclofenac Sodium 75 Sodium 75 t} Sodium 75 MG MG MG Lisinopril- Lisinopril- No Lisinopril hydroCHLORO hydroCHLORO -hydroCHLO thiazide thiazide ROthiazide 20-25 MG 20-25 MG 20-25 MG Diclofenac Diclofenac No Diclofenac Sodium 1 % Sodium 1 % Sodium 1 % Lisinopril- Lisinopril- No Lisinopril hydroCHLORO hydroCHLORO -hydroCHLO thiazide thiazide ROthiazide 20-12.5 MG 20-12.5 MG 20-12.5 MG hydrALAZINE hydrALAZINE No 1{table TID hydrALAZIN HCl 50 MG HCl 50 MG t_with_ E HCl 50 food} MG hydrALAZINE hydrALAZINE No 1{table BID hydrALAZIN HCl 100 MG HCl 100 MG t_with_ E HCl 100 food} MG Levemir Levemir No Levemir FlexTouch FlexTouch FlexTouch 100 UNIT/ML 100 UNIT/ML 100 UNIT/ML Levemir Levemir No QD Levemir FlexTouch FlexTouch FlexTouch 100 UNIT/ML 100 UNIT/ML 100 UNIT/ML Pantoprazol Pantoprazol No 1{table QD Pantoprazo e Sodium 40 e Sodium 40 t} le Sodium MG MG 40 MG Simvastatin Simvastatin No 1{table QD Simvastati 80 MG 80 MG t_in_th n 80 MG e_eveni ng} Metoprolol Metoprolol No Metoprolol Tartrate 50 Tartrate 50 Tartrate MG MG 50 MG Metoprolol Metoprolol No BID Metoprolol Tartrate Tartrate Tartrate 100 MG 100 MG 100 MG Diclofenac Diclofenac No 1{appli BID Diclofenac Sodium 1 % Sodium 1 % cation_ Sodium 1 % to_affe cted_ar ea} metFORMIN metFORMIN No BID metFORMIN HCl ER 500 HCl ER 500 HCl ER 500 MG MG MG Victoza 18 Victoza 18 No QD Victoza 18 MG/3ML MG/3ML MG/3ML Pantoprazol Pantoprazol No 1{table QD Pantoprazo e Sodium 40 e Sodium 40 t} le Sodium MG MG 40 MG Lisinopril- Lisinopril- No 1{table BID Lisinopril hydroCHLORO hydroCHLORO t} -hydroCHLO thiazide thiazide ROthiazide 20-25 MG 20-25 MG 20-25 MG Metoprolol Metoprolol No Metoprolol Tartrate Tartrate Tartrate 100 MG 100 MG 100 MG Diclofenac Diclofenac No 1{table BID Diclofenac Sodium 75 Sodium 75 t} Sodium 75 MG MG MG Lisinopril- Lisinopril- No Lisinopril hydroCHLORO hydroCHLORO -hydroCHLO thiazide thiazide ROthiazide 20-25 MG 20-25 MG 20-25 MG Victoza 18 Victoza 18 No QD Victoza 18 MG/3ML MG/3ML MG/3ML Diclofenac Diclofenac No Diclofenac Sodium 1 % Sodium 1 % Sodium 1 % Diclofenac Diclofenac No 1{appli BID Diclofenac Sodium 1 % Sodium 1 % cation_ Sodium 1 % to_affe cted_ar ea} Metoprolol Metoprolol No Metoprolol Tartrate 50 Tartrate 50 Tartrate MG MG 50 MG Metoprolol Metoprolol No Metoprolol Tartrate Tartrate Tartrate 100 MG 100 MG 100 MG Simvastatin Simvastatin No 1{table QD Simvastati 80 MG 80 MG t_in_th n 80 MG e_eveni ng} hydrALAZINE hydrALAZINE No 1{table TID hydrALAZIN HCl 50 MG HCl 50 MG t_with_ E HCl 50 food} MG Lisinopril- Lisinopril- No Lisinopril hydroCHLORO hydroCHLORO -hydroCHLO thiazide thiazide ROthiazide 20-25 MG 20-25 MG 20-25 MG Pantoprazol Pantoprazol No 1{table QD Pantoprazo e Sodium 40 e Sodium 40 t} le Sodium MG MG 40 MG Lisinopril- Lisinopril- No Lisinopril hydroCHLORO hydroCHLORO -hydroCHLO thiazide thiazide ROthiazide 20-12.5 MG 20-12.5 MG 20-12.5 MG metFORMIN metFORMIN No BID metFORMIN HCl ER 500 HCl ER 500 HCl ER 500 MG MG MG Metoprolol Metoprolol No BID Metoprolol Tartrate Tartrate Tartrate 100 MG 100 MG 100 MG Diclofenac Diclofenac No 1{table BID Diclofenac Sodium 75 Sodium 75 t} Sodium 75 MG MG MG Levemir Levemir No Levemir FlexTouch FlexTouch FlexTouch 100 UNIT/ML 100 UNIT/ML 100 UNIT/ML Pantoprazol Pantoprazol No 1{table QD Pantoprazo e Sodium 40 e Sodium 40 t} le Sodium MG MG 40 MG hydrALAZINE hydrALAZINE No 1{table BID hydrALAZIN HCl 100 MG HCl 100 MG t_with_ E HCl 100 food} MG Victoza 18 Victoza 18 No Victoza 18 MG/3ML MG/3ML MG/3ML Levemir Levemir No QD Levemir FlexTouch FlexTouch FlexTouch 100 UNIT/ML 100 UNIT/ML 100 UNIT/ML Lisinopril- Lisinopril- No 1{table BID Lisinopril hydroCHLORO hydroCHLORO t} -hydroCHLO thiazide thiazide ROthiazide 20-25 MG 20-25 MG 20-25 MG hydrALAZINE hydrALAZINE No hydrALAZIN HCl 100 MG HCl 100 MG E HCl 100 MG Pantoprazol Pantoprazol No 1{table QD Pantoprazo e Sodium 40 e Sodium 40 t} le Sodium MG MG 40 MG Lisinopril- Lisinopril- No Lisinopril hydroCHLORO hydroCHLORO -hydroCHLO thiazide thiazide ROthiazide 20-25 MG 20-25 MG 20-25 MG Levemir Levemir No QD Levemir FlexTouch FlexTouch FlexTouch 100 UNIT/ML 100 UNIT/ML 100 UNIT/ML Victoza 18 Victoza 18 No Victoza 18 MG/3ML MG/3ML MG/3ML Diclofenac Diclofenac No 1{appli BID Diclofenac Sodium 1 % Sodium 1 % cation_ Sodium 1 % to_affe cted_ar ea} Lisinopril- Lisinopril- No Lisinopril hydroCHLORO hydroCHLORO -hydroCHLO thiazide thiazide ROthiazide 20-12.5 MG 20-12.5 MG 20-12.5 MG Lisinopril- Lisinopril- No 1{table BID Lisinopril hydroCHLORO hydroCHLORO t} -hydroCHLO thiazide thiazide ROthiazide 20-25 MG 20-25 MG 20-25 MG hydrALAZINE hydrALAZINE No 1{table BID hydrALAZIN HCl 100 MG HCl 100 MG t_with_ E HCl 100 food} MG Diclofenac Diclofenac No 1{table BID Diclofenac Sodium 75 Sodium 75 t} Sodium 75 MG MG MG metFORMIN metFORMIN No BID metFORMIN HCl ER 500 HCl ER 500 HCl ER 500 MG MG MG hydrALAZINE hydrALAZINE No 1{table TID hydrALAZIN HCl 50 MG HCl 50 MG t_with_ E HCl 50 food} MG Victoza 18 Victoza 18 No QD Victoza 18 MG/3ML MG/3ML MG/3ML Metoprolol Metoprolol No BID Metoprolol Tartrate Tartrate Tartrate 100 MG 100 MG 100 MG Levemir Levemir No Levemir FlexTouch FlexTouch FlexTouch 100 UNIT/ML 100 UNIT/ML 100 UNIT/ML Metoprolol Metoprolol No Metoprolol Tartrate Tartrate Tartrate 100 MG 100 MG 100 MG Diclofenac Diclofenac No Diclofenac Sodium 1 % Sodium 1 % Sodium 1 % Simvastatin Simvastatin No 1{table QD Simvastati 80 MG 80 MG t_in_th n 80 MG e_eveni ng} Pantoprazol Pantoprazol No 1{table QD Pantoprazo e Sodium 40 e Sodium 40 t} le Sodium MG MG 40 MG Metoprolol Metoprolol No Metoprolol Tartrate 50 Tartrate 50 Tartrate MG MG 50 MG Diclofenac Diclofenac No 1{table BID Diclofenac Sodium 75 Sodium 75 t} Sodium 75 MG MG MG Metoprolol Metoprolol No Metoprolol Tartrate 50 Tartrate 50 Tartrate MG MG 50 MG hydrALAZINE hydrALAZINE No hydrALAZIN HCl 25 MG HCl 25 MG E HCl 25 MG Metoprolol Metoprolol No BID Metoprolol Tartrate Tartrate Tartrate 100 MG 100 MG 100 MG Pantoprazol Pantoprazol No 1{table QD Pantoprazo e Sodium 40 e Sodium 40 t} le Sodium MG MG 40 MG Pantoprazol Pantoprazol No 1{table QD Pantoprazo e Sodium 40 e Sodium 40 t} le Sodium MG MG 40 MG Tradjenta 5 Tradjenta 5 No 1{table QD Tradjenta MG MG t} 5 MG Lisinopril- Lisinopril- No Lisinopril hydroCHLORO hydroCHLORO -hydroCHLO thiazide thiazide ROthiazide 20-25 MG 20-25 MG 20-25 MG Levemir Levemir No QD Levemir FlexTouch FlexTouch FlexTouch 100 UNIT/ML 100 UNIT/ML 100 UNIT/ML hydrALAZINE hydrALAZINE No 1{table TID hydrALAZIN HCl 50 MG HCl 50 MG t_with_ E HCl 50 food} MG metFORMIN metFORMIN No BID metFORMIN HCl ER 500 HCl ER 500 HCl ER 500 MG MG MG metFORMIN metFORMIN No metFORMIN HCl ER 500 HCl ER 500 HCl ER 500 MG MG MG Lisinopril- Lisinopril- No 1{table BID Lisinopril hydroCHLORO hydroCHLORO t} -hydroCHLO thiazide thiazide ROthiazide 20-25 MG 20-25 MG 20-25 MG Lisinopril- Lisinopril- No Lisinopril hydroCHLORO hydroCHLORO -hydroCHLO thiazide thiazide ROthiazide 20-12.5 MG 20-12.5 MG 20-12.5 MG Simvastatin Simvastatin No 1{table QD Simvastati 80 MG 80 MG t_in_th n 80 MG e_eveni ng} metFORMIN metFORMIN No BID metFORMIN HCl ER 500 HCl ER 500 HCl ER 500 MG MG MG hydrALAZINE hydrALAZINE No 1{table TID hydrALAZIN HCl 50 MG HCl 50 MG t_with_ E HCl 50 food} MG Lisinopril- Lisinopril- No Lisinopril hydroCHLORO hydroCHLORO -hydroCHLO thiazide thiazide ROthiazide 20-12.5 MG 20-12.5 MG 20-12.5 MG Metoprolol Metoprolol No Metoprolol Tartrate Tartrate Tartrate 100 MG 100 MG 100 MG Pantoprazol Pantoprazol No 1{table QD Pantoprazo e Sodium 40 e Sodium 40 t} le Sodium MG MG 40 MG Pantoprazol Pantoprazol No 1{table QD Pantoprazo e Sodium 40 e Sodium 40 t} le Sodium MG MG 40 MG Levemir Levemir No QD Levemir FlexTouch FlexTouch FlexTouch 100 UNIT/ML 100 UNIT/ML 100 UNIT/ML Immunizations Ordered Immunization Filled Immunization Date Status Commen ts Source Name Name FLUZONE HIGH DOSE FLUZONE HIGH DOSE 2022-07-30 [facility] OVER [facility] 15:16:[facility] - [facility] FLUZONE HIGH DOSE FLUZONE HIGH DOSE 2022-07-30 Completed [facility] OVER 65 OVER 65 15:16:00 - [facility] Fluzone Fluzone 2021-08-25 Completed [facility] 10:55:00 - [facility] Fluzone Fluzone 2021-08-25 [facility]pleted [facility] 10:55:00 - [facility] Fluzone Fluzone 2021-08-25 Completed [facility] 10:55:00 - [facility] Fluzone Fluzone 2021-08-25 Completed [facility] 10:55:00 - [facility] Fluzone Fluzone 2021-08-25 Completed [facility] 10:55:00 - [facility] Fluzone Fluzone 2021-08-25 Completed [facility] 10:55:00 - [facility] Fluzone Fluzone 2021-08-25 Completed [facility] 10:55:00 - [facility] Fluzone Fluzone 2021-08-25 Completed [facility] 10:55:00 - [facility] Fluzone Fluzone 2021-08-25 Completed [facility] 10:55:00 - [facility] Fluzone Fluzone 2021-08-25 Completed [facility] 10:55:00 - [facility] Fluzone Fluzone 2021-08-25 Completed [facility] 10:55:00 - [facility] Fluzone Fluzone 2021-08-25 Completed [facility] 10:55:00 - [facility] FluAD FluAD 2020-09-04 Completed [facility] 11:40:00 - [facility] FluAD FluAD 2020-09-04 Completed [facility] 11:40:00 - [facility] FluAD FluAD 2020-09-04 Completed [facility] 11:40:00 - [facility] FluAD FluAD 2020-09-04 Completed [facility] 11:40:00 - [facility] FluAD FluAD 2020-09-04 Completed [facility] 11:40:00 - [facility] FluAD FluAD 2020-09-04 Completed [facility] 11:40:00 - [facility] FluAD FluAD 2020-09-04 Completed [facility] 11:40:00 - [facility] FluAD FluAD 2020-09-04 Completed [facility] 11:40:00 - [facility] FluAD FluAD 2020-09-04 Completed [facility] 11:40:00 - [facility] FluAD FluAD 2020-09-04 Completed [facility] 11:40:00 - [facility] FluAD FluAD 2020-09-04 Completed [facility] 11:40:00 - [facility] FluAD FluAD 2020-09-04 Completed [facility] 11:40:00 [facility] Vital Signs Vital Name Observation Time Observation Value Comments Source height 2022-09-03 08:00:00 69 [in_i] [facility] weight 2022-09-03 08:00:00 189.4 [lb_av] [facility] temperature 2022-09-03 08:00:00 96.8 [degF] [facility] bmi 2022-09-03 08:00:00 27.97 kg/m2 [facility] oximetry 2022-09-03 08:00:00 98 % [facility] respiratory rate 2022-09-03 08:00:00 18 /min Comm on [facility] blood pressure 2022-09-03 08:00:00 135 mm[Hg] [facility] - systolic [facility] blood pressure 2022-09-03 08:00:00 76 mm[Hg] [facility] - diastolic [facility] height 2022-07-30 14:50:00 69 [in_i] [facility] weight 2022-07-30 14:50:00 190 [lb_av] [facility] temperature 2022-07-30 14:50:00 98.0 [degF] [facility] bmi 2022-07-30 14:50:00 28.06 kg/m2 [facility] oximetry 2022-07-30 14:50:00 98 % [facility] respiratory rate 2022-07-30 14:50:00 16 /min Comm on [facility] blood pressure 2022-07-30 14:50:00 132 mm[Hg] [facility] - systolic [facility] blood pressure 2022-07-30 14:50:00 76 mm[Hg] [facility] - diastolic [facility] height 2022-05-04 15:00:00 69 [in_i] [facility] 2022-05-04 15:00:00 188.6 [lb_av] [facility] temperature 2022-05-04 15:00:00 98.1 [degF] [facility] bmi 2022-05-04 15:00:00 27.85 kg/m2 [facility] oximetry 2022-05-04 15:00:00 98 % [facility] respiratory rate 2022-05-04 15:00:00 18 /min Comm on [facility] blood pressure 2022-05-04 15:00:00 139 mm[Hg] [facility] - systolic [facility] blood pressure 2022-05-04 15:00:00 87 mm[Hg] [facility] - diastolic [facility] height 2022-04-20 08:40:00 69 [in_i] [facility] weight 2022-04-20 08:40:00 193.2 [lb_av] [facility] temperature 2022-04-20 08:40:00 96.8 [degF] [facility] bmi 2022-04-20 08:40:00 28.53 kg/m2 [facility] oximetry 2022-04-20 08:40:00 99 % [facility] respiratory rate 2022-04-20 08:40:00 18 /min Comm on [facility] blood pressure 2022-04-20 08:40:00 138 mm[Hg] [facility] - systolic [facility] blood pressure 2022-04-20 08:40:00 85 mm[Hg] [facility] - diastolic [facility] height 2022-03-19 08:20:00 69 [in_i] [facility] weight 2022-03-19 08:20:00 191.1 [lb_av] [facility] temperature 2022-03-19 08:20:00 97.0 [degF] [facility] bmi 2022-03-19 08:20:00 28.22 kg/m2 [facility] oximetry 2022-03-19 08:20:00 100 % [facility] respiratory rate 2022-03-19 08:20:00 18 /min Comm on [facility] blood pressure 2022-03-19 08:20:00 139 mm[Hg] [facility] - systolic [facility] blood pressure 2022-03-19 08:20:00 88 mm[Hg] [facility] - diastolic [facility] height 2022-02-11 09:10:00 69 [in_i] [facility] weight 2022-02-11 09:10:00 192.0 [lb_av] [facility] temperature 2022-02-11 09:10:00 97.7 [degF] [facility] 2022-02-11 09:10:00 28.35 kg/m2 [facility] oximetry 2022-02-11 09:10:00 98 % [facility] respiratory rate 2022-02-11 09:10:00 17 /min Comm on [facility] blood pressure 2022-02-11 09:10:00 135 mm[Hg] [facility] - systolic [facility] blood pressure 2022-02-11 09:10:00 76 mm[Hg] [facility] - diastolic [facility] height 2021-09-24 10:50:00 69 [in_i] [facility] weight 2021-09-24 10:50:00 192.6 [lb_av] [facility] temperature 2021-09-24 10:50:00 97.2 [degF] [facility] bmi 2021-09-24 10:50:00 28.44 kg/m2 [facility] oximetry 2021-09-24 10:50:00 99 % [facility] respiratory rate 2021-09-24 10:50:00 18 /min Comm on [facility] blood pressure 2021-09-24 10:50:00 153 mm[Hg] [facility] - systolic [facility] blood pressure 2021-09-24 10:50:00 78 mm[Hg] [facility] - diastolic [facility] height 2021-08-25 10:40:00 69 [in_i] [facility] weight 2021-08-25 10:40:00 192.3 [lb_av] [facility] temperature 2021-08-25 10:40:00 97.7 [degF] [facility] bmi 2021-08-25 10:40:00 28.39 kg/m2 [facility] oximetry 2021-08-25 10:40:00 100 % [facility] respiratory rate 2021-08-25 10:40:00 18 /min Comm on [facility] blood pressure 2021-08-25 10:40:00 152 mm[Hg] [facility] systolic [facility] blood pressure 2021-08-25 10:40:00 75 mm[Hg] [facility] diastolic [facility] Heart Rate 2021-10-20 21:24:00 Niranjan Aleksandar Respitory Rate 2021-10-20 21:24:00 Delfino pearce Aleksandar Height 2021-10-20 21:24:00 165.1 cm [facility] Weight 2021-10-20 21:24:00 [facility] BMI Calculated 2021-10-20 21:24:00 Deejayori al [place] Systolic (mm Hg) 2021-10-20 21:24:00 Rafael Huertas Diastolic (mm Hg) 2021-10-20 21:24:00 Mem orial [place] Procedures This patient has no known procedures. Encounters Start End Encounter Admission Attending Care Care Encounter Source Date/Time Date/Time Type Type Clinicians Facility Department ID 2023-02-24 Outpatient Mueller, STLMLC STLMLC [id number] [facility] 06:50:00 Marquis [id number] [facility] 2023-02-23 Outpatient Mueller, STLMLC STLMLC [id number] [facility] 16:14:01 Marquis [id number] [facility] 2022-12-01 Outpatient Mueller, STLMLC STLMLC [id number] Common 07:51:00 Marquis [id number] [facility] 2022-09-01 Outpatient Mueller, STLMLC STLMLC [id number] [facility] 11:17:01 Marquis 11983 [facility] 2022-08-31 Outpatient Mueller, STLMLC STLMLC [id number] Common 09:10:02 Marquis [facility] 2022-07-28 Outpatient Mueller, STLMLC STLMLC [id number] Common 13:10:02 Marquis [id number] [facility] 2022-04-17 Outpatient Mueller, STLMLC STLMLC [id number] Common 11:25:01 Marquis [id number] [facility] 2021-10-08 Outpatient Mueller, STLMLC STLMLC [id number] Common 14:23:27 Marquis [id number] [facility] 2021-10-08 Outpatient Mueller, STLMLC STLMLC [id number] Common 13:50:19 [place] [id number] [facility] 2021-10-08 Outpatient Mueller, STLMLC STLMLC [id number] Common 13:39:57 Marquis [id number] [facility] 2021-10-08 Outpatient Mueller, STLMLC STLMLC [id number] Common 13:31:57 Marquis [id number] [facility] 2021-10-08 Outpatient Mueller, STLMLC STLMLC [id number] Common 12:43:01 Marquis [id number] [facility] 2021-10-08 Outpatient Mueller, STLMLC STLMLC [id number] Common 11:56:36 Mar[place] [id number] [facility] 2021-10-08 Outpatient Mueller, STLMLC STLMLC [id number] Common 11:47:29 Marquis [id number] [facility] 2021-10-08 Outpatient Mueller, STLMLC STLMLC [id number] Common 11:42:57 [place] [id number] [facility] 2021-10-08 Outpatient Mueller, STLMLC STLMLC [id number] [facility] 11:42:19 [place] [address] [facility] 2022-09-03 2022-09-03 OFFICE STLMLC STLMLC [id number] Co mmon 00:00:00 00:00:00 VISIT [facility] ESTAB PT - CHI LEVEL 4 [facility] 2022-07-30 2022-07-30 OFFICE STLMLC STLMLC [id number] Co mmon 00:00:00 00:00:00 VISIT [facility] ESTAB PT - CHI LEVEL 4 [facility] 2022-07-23 2022-07-23 (TEL) STLMLC STLMLC [id number] Co mmon 00:00:00 00:00:00 [facility] 2022-05-04 2022-05-04 OFFICE STLMLC STLMLC [id number] Co mmon 00:00:00 00:00:00 VISIT [facility] PT LEVEL 3 - CHI [facility] 2022-05-04 2022-05-04 (TEL) STLMLC STLMLC [id number] Co mmon 00:00:00 00:00:00 [facility] 2022-04-29 2022-04-29 (TEL) STLMLC STLMLC [id number] Co mmon 00:00:00 00:00:00 [facility] 2022-04-20 2022-04-20 OFFICE STLMLC STLMLC [id number] Co mmon 00:00:00 00:00:00 [facility] EST[facility] PT - CHI LEVEL 4 [facility] 2022-03-19 2022-03-19 OFFICE STLMLC STLMLC [id number] Co mmon 00:00:00 00:00:00 [facility] ESTAB PT - CHI LEVEL 4 [facility] 2022-02-11 2022-02-11 SUB ANNUAL STLMLC STLMLC [id number] [facility] 00:00:00 00:00:00 [facility] WELLNESS - CHI VISIT [facility] 2022-01-21 2022-01-21 (TEL) STLMLC STLMLC [id number] Co mmon 00:00:00 00:00:00 [facility] - CHI [facility] 2021-11-18 2021-11-18 Ambulatory nullFlavo MNA [id number] [facility] 17:45:00 17:45:00 Pre-Reg r Neurology 01 l Hadley Huertas 2021-11-18 2021-11-18 Ambulatory nullFlavo MNA [id number] [facility] 17:45:00 17:45:00 Pre-Reg r Neurology 01 markie Tannerann 2021-11-18 2021-11-18 Outpatient MHIE MHIE [id number] [facility] 11:45:00 11:45:00 01 markie Huertas 2021-11-18 2021-11-18 Outpatient ABENA England MORGANSCHER [id number] 11:45:00 11:45:00 Jc 01 Justice 2021-10-20 2021-10-21 Outpatient nullFlavo MNA [id number] [facility] 21:00:00 05:59:59 r Neurology 00 markie Riversidedeisy Tannerann 2021-10-20 2021-10-21 Outpatient nullFlavo MNA [id number] [facility] 21:00:00 05:59:59 r Neurology 00 markie Hadley Huertas 2021-10-20 2021-10-20 Outpatient ABENA England M[facility]ER [id number] 15:00:00 23:59:59 Jc 00 Justice 2021-10-20 2021-10-20 Outpatient MHIE MHIE [id number] [facility] 15:00:00 15:00:00 00 markie Aleksandar 2021-09-24 2021-09-24 OFFICE STLMLC STLMLC [id number] Co mmon 00:00:00 00:00:00 [facility] PT - CHI LEVEL 4 [facility] 2021-08-25 2021-08-25 OFFICE STLMLC STLMLC [id number] Co mmon 00:00:00 00:00:00 [facility] PT - CHI LEVEL 4 [facility] 2021-05-01 2021-05-01 Outpatient STLMLC STLMLC [id number] [facility] 00:00:00 00:00:00 [facility] 2021-04-10 2021-04-10 Outpatient STLMLC STLMLC [id number] [facility] 00:00:00 00:00:00 [facility] 2020-12-03 2020-12-03 Outpatient STLMLC STLMLC [id number] [facility] 00:00:00 00:00:00 [facility] 2020-12-03 2020-12-03 Outpatient STLMLC STLMLC [id number] [facility] 00:00:00 00:00:00 [facility] 2020-09-04 2020-09-04 Outpatient STLMLC STLMLC [id number] Common 00:00:00 00:00:00 [facility] 2020-06-04 2020-06-04 Outpatient STLMLC STLMLC [id number] Common 00:00:00 00:00:00 [facility] 2020-06-04 2020-06-04 Outpatient STLMLC STLMLC [id number] [facility] 00:00:00 00:00:00 [facility] 2020-05-31 2020-05-31 Outpatient STLMLC STLMLC [id number] [facility] 00:00:00 00:00:00 [facility] 2020-05-14 2020-05-14 [facility] [id number] [facility] 09:40:00 09:40:00 [facility] it [facility] Results Test Description Test Time Test Comments Results Result Comments Source HEMOGLOBIN A1C 2022-09-03 00:00:00 Test Item Value Reference Range Interpretation Comme nts A1C (test code = 4548-4) 10.3 HEMOGLOBIN [id number] 00:00:00 Test Item Value Reference Range Interpretation Comments A1C (test code = 4548-4) 10.3 HEMOGLOBIN [id number] 00:00:00 Test Item Value Reference Range Interpretation Comments A1C (test code = 4548-4) 10.3 HEMOGLOBIN [id number] 00:00:00 Test Item Value Reference Range Interpretation Comments A1C (test code = 4548-4) 11.2 TISSUE [id number] 15:51:00Surgical Pathology Report Case: [id number] Authorizing Provider: Paulina Simpson MD Collected: 08/05/2018 1009 Ordering Location: [address] Received: 08/05/2018 1409 Service Pathologist: Claude Chacon MD Specimens: A) - Biopsy, Gastric, Random B) - Polyp, Colon - Cecum, Polyp A. STOMACH, RANDOM, BIOPSY: - CHRONIC INACTIVE GASTRITIS - NEGATIVE FOR H. PYLORI BY WARTHIN STARRY STAINB. COLON, CECUM, POLYPECTOMY: - TUBULAR ADENOMA Signing Pathologist Direct Phone Line: [phone] signed by Claude Chacon MD on 08/08/2018 at 3:51 [id number] X 2 , 17124CK bleedA. Random gastric biopsy; B. Cecum colon [...] stains. Immunohistochemistry technical testing was performed at [facility], Pathology Laboratory where it was developed [...] qualified to perform high complexity clinical laboratory testing.POCT-GLUCOSE [id number] 12:49:00 Test Item Value Reference Range Interpretation Comments POC-GLUCOSE METER 190 mg/dL 70-110 H TESTED AT [facility] 3920 (SHENAELLIOT) (test code = RAFIQ CASTR[place] 1538) [address] POCT-GLUCOSE [id number] 10:55:00 Test Item Value Reference Range Interpretation Comments POC-GLUCOSE METER 196 mg/dL 70-110 H TESTED AT [facility] 6720 (JESSICA) (test code = RAFIQ [place]STR[place] 1538) [address] U/S, ABDOMINAL, [id number] 08:36:00Abdomen limited area? Add comment if clarification [...] Sahu Verified Date/Time: 08/05/2018 08:36:42 Reading Location: [address] Ultrasound Reading Room [id number] 07:05:00 Test Item Value Reference Range Interpretation Comments PHOSPHORUS (BEAKER) (test code = 2.1 mg/dL 2.3-4.7 L 604) [id number] 07:05:00 Test Item Value Reference Range Interpretation Comments MAGNESIUM (BEAKER) (test code = 2.2 mg/dL 1.6-2.6 627) BASIC METABOLIC [id number] 07:05:00 Test Item Value Reference Range Interpretation [...] APPLICABLE FOR DIALYSIS PATIEN TS. HEPATIC FUNCTION [id number] 07:05:00 Test Item Value Reference Range Interpretation [...] code = 17 U/L 6-55 347) TROPONIN [id number] 07:03:00 Test Item Value Reference Range Interpretation Comments TROPONIN I (BEAKER) (test code = 397) < ng/mL 0.00-0.03 HEMOGLOBIN AND [id number] 06:11:00 Test Item Value Reference Range Interpretation Comments HEMOGLOBIN (BEAKER) (test code = 10.1 GM/DL 13.7-17.5 L 410) HEMATOCRIT (BEAKER) (test code = 31.4 % 40.1-51.0 L 411) CBC W/PLT COUNT & AUTO [id number] 06:11:00 Test Item Value Reference Range Interpretation [...] 417) IMMATURE GRANULOCYTES-RELATIVE 0 % 0-1 PERCENT ([facility]) (test code = 2801) POCT-GLUCOSE [id number] 20:44:00 Test Item Value Reference Range Interpretation Comments POC-GLUCOSE METER 149 mg/dL 70-110 H TESTED AT [facility] 6720 ([facility]) (test code = RAFIQ Russo [facility] 1538) [address] RAD, CHEST, 1 VIEW, NON [id number] 20:38:00Reason for exam:->SOBShould this be performed at the bedside?->YesFINAL REPORT History: Shortness of breath. Comparison: None. Findings: A singleview of the chest is submitted. The cardiomediastinal contours are unremarkable. Retrocardiac opacity in the left lung may reflect atelectasis but pneumonitis should be excluded clinically. There is nopneumothorax, large pleural effusion, evidence of overt pulmonary edema or acute bony abnormality. Signed: Fede [facility] Verified Date/Time: 08/04/2018 20:38:15 Reading Location: [address] Reading Room TROPONIN [id number] 20:02:00 Test Item Value Reference Range Interpretation Comments TROPONIN I ([facility]) (test code = 397) < ng/mL 0.00-0.03 POCT-GLUCOSE [id number] 19:55:00 Test Item Value Reference Range Interpretation Comments POC-GLUCOSE METER 99 mg/dL 70-110 TESTED AT [facility] 67 ([facility]) (test code = RAFIQ Russo [facility] [address] 1538) POCT-GLUCOSE [id number] 19:15:00 Test Item Value Reference Range Interpretation Comments POC-GLUCOSE METER 129 mg/dL 70-110 H TESTED AT [facility] 6720 ([facility]) (test code = RAFIQ Russo [facility] 1538) [address] [id number] 18:38:00 Test Item Value Reference Range Interpretation Comments MAGNESIUM ([facility]) 2.2 mg/dL 1.6-2.6 Specimen slightly (test code = 627) hemolyzed BASIC METABOLIC [id number] 18:38:00 Test Item Value Reference Range Interpretation [...] NOT APPLICABLE FOR DIALYSIS PATIEN TS. PROTHROMBIN [id number] 18:12:00 Test Item Value Reference Range Interpretation Comments PROTIME (BEAKER) (test code = 16.1 seconds 11.7-14.7 H 759) INR (BEAKER) (test code = 370) 1.3 <=5.9 RECOMMENDED COUMADIN/WARFARIN INR THERAPY RANGESSTANDARD DOSE: 2.0 - 3.0 Includes: PROPHYLAXIS for venous thrombosis, systemic embolization; TREATMENT for venous thrombosis and/or pulmonary embolus.HIGH RISK: Target INR is 2.5-3.5 for patients with mechanical heart valves.HEMOGLOBIN AND [id number] 18:05:00 Test Item Value Reference Range Interpretation Comments HEMOGLOBIN (BEAKER) (test code = 9.1 GM/DL 13.7-17.5 L 410) HEMATOCRIT (BEAKER) (test code = 28.1 % 40.1-51.0 L 411) POCT-LACTIC ACID, [id number] 17:59:00 Test Item Value Reference Range Interpretation Comments POC-LACTIC ACID, 2.0 mmol/L 0.9-1.7 H TESTED AT [facility] [address] (BEAKER) (test [facility] Rafaela CASTRO [place] code = 2805) [address] POCT-GLUCOSE [id number] 17:06:00 Test Item Value Reference Range Interpretation Comments POC-GLUCOSE METER 85 mg/dL 70-110 TESTED AT [facility] 6720 (BEAKER) (test code = [place] [address] 1538) CBC W/PLT COUNT & AUTO [id number] 16:06:00 Test Item Value Reference Range Interpretation [...] PERCENT (BEAKER) (test code = 2801) POCT-GLUCOSE [id number] 11:55:00 Test Item Value Reference Range Interpretation Comments POC-GLUCOSE METER 350 mg/dL 70-110 H Notified R Bernie BELL/TESTED (BEAKER) (test code = AT [facility] [address] [facility]) [facility] 7703 0 POCT-GLUCOSE [id number] 07:38:00 Test Item Value Reference Range Interpretation Comments POC-GLUCOSE METER 221 mg/dL 70-110 H TESTED AT [facility] 67[address] (BEAKER) (test code = RAFIQ Russo [place] [address]) [address] [id number] 07:01:00 Test Item Value Reference Range Interpretation Comments MAGNESIUM (BEAKER) 2.2 mg/dL 1.6-2.6 Specimen slightly (test code = 627) hemolyzed [id number] 07:01:00 Test Item Value Reference Range Interpretation Comments PHOSPHORUS (BEAKER) 3.4 mg/dL 2.3-4.7 Specimen slightly (test code = 604) hemolyzed BASIC METABOLIC [id number] 07:01:00 Test Item Value Reference Range Interpretation [...] APPLICABLE FOR DIALYSIS PATIEN TS. HEPATIC FUNCTION [id number] 07:01:00 Test Item Value Reference Range Interpretation [...] (test code = 347) hemolyzed HEMOGLOBIN AND [id number] 06:32:00 Test Item Value Reference Range Interpretation Comments HEMOGLOBIN (BEAKER) (test code = 9.2 GM/DL 13.7-17.5 L 410) HEMATOCRIT (BEAKER) (test code = 28.1 % 40.1-51.0 L 411) [id number] 02:43:00 Test Item Value Reference Range Interpretation Comments FERRITIN (BEAKER) (test code = 361) 164 ng/mL 5-275 VITAMIN B12 AND [id number] 02:43:00 Test Item Value Reference Range Interpretation [...] L (test code = 2590) COMPREHENSIVE METABOLIC [id number] 00:56:00 Test Item Value Reference Range Interpretation [...] NOT APPLICABLE FOR DIALYSIS PATIEN TS. PROTHROMBIN [id number] 00:50:00 Test Item Value Reference Range Interpretation [...] mechanical heart valves.CBC W/PLT COUNT & AUTO [id number] 00:35:00 Test Item Value Reference Range Interpretation [...] ABSOLUTE COUNT 1.26 K/ L 1.32-3.57 L ([facility]) (test code = 414) MONOCYTES ABSOLUTE COUNT ([facility]) 0.42 K/ L 0.30-0.82 (test code = 415) EOSINOPHILS ABSOLUTE COUNT 0.15 K/ L 0.04-0.54 ([facility]) (test code = 416) BASOPHILS ABSOLUTE COUNT ([facility]) 0.03 K/ L 0.01-0.08 (test code = 417) IMMATURE GRANULOCYTES-RELATIVE 0 % 0-1 PERCENT ([facility]) (test code = 2801) POCT-GLUCOSE [id number] 23:55:00 Test Item Value Reference Range Interpretation Comments POC-GLUCOSE METER 245 mg/dL 70-110 H TESTED AT [facility] 67[address] ([facility]) (test code = RAFIQ PADILLA 1538) [address]
[2023-03-03] MEDS ORDERED: HYDROCODONE/APAP 7.5/325 MG TAB ONE (19:23)
--- NOTE | 2023-03-03 19:37 | RAD REPORT ---
EXAM DESCRIPTION: RAD - Foot Left 3 View - 03/03/2023 7:20 pm CLINICAL HISTORY: Swelling;Pain COMPARISON: No comparisons TECHNIQUE: Left foot, 3 views. FINDINGS: Mildly comminuted and displaced fracture of the midshaft of the second metatarsal. No disl ocation or periosteal reaction. Soft tissue swelling throughout the foot most pronounced dorsal. Vascular calcifications. Large calca claudette spur. Scattered mild degenerative changes. No air or foreign body in the soft tissues. IMPRESSION: Mildly comminuted and displaced midshaft second metatarsal fracture.
--- NOTE | 2023-03-03 19:44 | ER ---
Nurse's Notes [facility] Name: Anthony Rooney Age: 72 yrs Sex: Male : 1950 Arrival Date: 03/03/2023 Time: 17:35 Bed 18 Private MD: Diagnosis: Crushing injury of foot;Cellulitis of left lower limb Presentation: 03/03 17:49 Chief complaint: Patient states: Pain and swelling to L foot after stepped on by horse. ph Coronavirus screen: Vaccine status: Patient reports receiving the 1st dose of the Covid vaccine. Ebola Screen: No symptoms or risks identified at this time. Initial Sepsis Screen: Does the patient meet any 2 criteria? No. Patient's initial sepsis screen is negative. Does the patient have a suspected source of infection? No. Patient's initial sepsis screen is negative. Risk Assessment: Do you want to hurt yourself or someone else? Patient reports no desire to harm self or others. Onset of symptoms was March 03, 2023. 17:49 Method Of Arrival: Ambulatory ph 17:49 Acuity: NAE 4 ph Triage Assessment: 20:55 General: Appears in no apparent distress. comfortable, Behavior is calm, cooperative, nj1 appropriate for age. Historical: - Allergies: 17:51 No Known Allergies; ph - PMHx: 17:51 Diabetes - IDDM; High Cholesterol; Hypertension; Ulcers; ph - Immunization history:: Adult Immunizations unknown. - Social history:: Smoking status: Patient denies any tobacco usage or history of. Screenin:27 [facility] ED Fall Risk Assessment (Adult) History of falling in the last 3 months, nj1 including since admission No falls in past 3 months (0 pts) Confusion or Disorientation No (0 pts) Intoxicated or Sedated No (0 pts) Impaired Gait No (0 pts) Mobility Assist Device Used No (0 pt) Altered Elimination No (0 pt) Score/Fall Risk Level 0 - 2 = Low Risk Oriented to surroundings, Maintained a safe environment, Hourly rounding (assess needs \T\ fall precautionary measures) done. 19:27 Abuse screen: Denies threats or abuse. Denies injuries from another. Nutritional nj1 screening: No deficits noted. Tuberculosis screening: No symptoms or risk factors identified. Assessment: 19:27 General: Appears in no apparent distress. comfortable, Behavior is calm, cooperative, nj1 appropriate for age. Pain: Complains of pain in left foot Pain currently is 10 out of 10 on a pain scale. 19:27 Neuro: Level of Consciousness is awake, alert, obeys commands, Oriented to person, nj1 place, time, situation. Cardiovascular: Patient's skin is warm and dry. Respiratory: Airway is patent Respiratory effort is even, unlabored. Musculoskeletal: Swelling present in left foot Reports pain in left foot. 20:50 Reassessment: Patient appears in no apparent distress at this time. Patient and/or nj1 family updated on plan of care and expected duration. Pain level reassessed. Patient is alert, oriented x 3, equal unlabored respirations, skin warm/dry/pink. Patient states feeling better. Patient states symptoms have improved. Vital Signs: 17:49 BP 159 / 81; Pulse 78; Resp 18; Temp 97.8; Pulse Ox 100% on R/A; Weight 85.73 kg; ph Height 5 ft. 9 in. ; 20:34 BP 171 / 79; Pulse 67; Resp 18; Pulse Ox 99% ; nj1 17:49 Body Mass Index 27.91 (85.73 kg, 175.26 cm) ph ED Course: 17:36 Patient arrived in ED. rg4 17:45 [facility] Igles[facility]C [facility] snw 17:45 Baljinder Chavarria MD is Attending Physician. snw 17:51 Triage completed. ph 17:51 Arm band placed on Patient placed in waiting room, Patient notified of wait time. X-ray ph ordered. 19:19 Rey Rucker RN is Primary Nurse. ll3 19:22 XRAY Foot LEFT 3 View In Process Unspecified. EDMS 19:30 Patient has correct armband on for positive identification. Bed in low position. Call nj1 light in reach. 19:46 Orthoglass splint: Posterior short lleg splint applied on left leg. oe 20:55 No provider procedures requiring assistance completed. nj1 20:55 Patient did not have IV access during this emergency room visit. nj1 Administered Medications: 19:18 Drug: Hydrocodone-Acetaminophen PO (7.5 mg-325 mg) 1 tabs Route: PO; ll3 19:30 Follow up: Response: No adverse reaction nj1 20:04 Drug: Cephalexin PO 500 mg Route: PO; nj1 20:35 Follow up: Response: No adverse reaction nj1 Medication: 20:55 VIS not applicable for this client. nj1 Outcome: 19:44 Discharge ordered by . rt 20:55 Discharged to home via wheelchair, with family. nj1 20:55 Condition: stable 20:55 Discharge instructions given to patient, family, Instructed on discharge instructions, follow up and referral plans. medication usage, safety practices, Walker use Demonstrated understanding of instructions, follow-up care, medications, Walker use. 21:00 Patient left the ED. nj1 Signatures: Dispatcher [employer] EDMS Melany Iglesias, HEAVY TRUCK MECHANIC-C HEAVY TRUCK MECHANIC-Csnw Vivi Johns, RN RN ph Liz Wilkes rg4 Denis Ramos Lacie, RN RN lg3 Rey Rucker, RN RN ll3 Baljinder Chavarria MD MD rt Mikaela Guzman RN RN nj1 Corrections: (The following items were deleted from the chart) 17:52 17:51 Arm band placed on Patient placed in an exam room, ph ph 21:13 21:04 Patient left the ED. lg3 nj1
--- NOTE | 2023-03-03 19:44 | EDPHYS ---
Physician Documentation [facility] Name: Anthony Rooney Age: 72 yrs Sex: Male : 1950 Arrival Date: 03/03/2023 Time: 17:35 Bed 18 Private MD: ED Physician Baljinder Chavarria HPI: 03/03 18:34 This 72 yrs old Male presents to ER via Ambulatory with complaints of Foot snw Pain. 18:34 The patient presents with an injury, pain, swelling. The complaints affect the dorsum snw of left foot. Onset: The symptoms/episode began/occurred acutely. Modifying factors: the symptoms are aggravated by pt seen recently for heel pain, + calcaneal spur, discussed with pt that cortisone injection would probably not be a good idea 2nd to DM. Pt states he did get "the shot" and initially his foot felt better but one week later the top of his foot started hurting a lot, got a little red, pt states that today his horse stepped on his foot and now the swelling is so bad he is unable to wear a shoe. Associated signs and symptoms: The patient has no apparent associated signs or symptoms. Severity of symptoms: At their worst the symptoms were moderate, severe. as noted. Historical: - Allergies: 17:51 No Known Allergies; ph - PMHx: 17:51 Diabetes - IDDM; High Cholesterol; Hypertension; Ulcers; ph - Immunization history:: Adult Immunizations unknown. - Social history:: Smoking status: Patient denies any tobacco usage or history of. ROS: 18:38 Constitutional: Negative for fever, chills, and weight loss, Eyes: Negative for injury, snw pain, redness, and discharge, ENT: Negative for injury, pain, and discharge, Neck: Negative for injury, pain, and swelling, Cardiovascular: Negative for chest pain, palpitations, and edema, Respiratory: Negative for shortness of breath, cough, wheezing, and pleuritic chest pain, Abdomen/GI: Negative for abdominal pain, nausea, vomiting, diarrhea, and constipation, Back: Negative for injury and pain, : Negative for injury, bleeding, discharge, and swelling, Skin: Negative for injury, rash, and discoloration, Neuro: Negative for headache, weakness, numbness, tingling, and seizure, Psych: Negative for depression, anxiety, suicide ideation, homicidal ideation, and hallucinations. 18:38 MS/extremity: Positive for injury or acute deformity, contusion, pain, swelling, of the dorsum of left foot. Exam: 18:33 Constitutional: This is a well developed, well nourished patient who is awake, alert, snw and in no acute distress. Head/Face: Normocephalic, atraumatic. Eyes: Pupils equal round and reactive to light, extra-ocular motions intact. Lids and lashes normal. Conjunctiva and sclera are non-icteric and not injected. Cornea within normal limits. Periorbital areas with no swelling, redness, or edema. ENT: Nares patent. No nasal discharge, no septal abnormalities noted. Tympanic membranes are normal and external auditory canals are clear. Oropharynx with no redness, swelling, or masses, exudates, or evidence of obstruction, uvula midline. Mucous membranes moist. Neck: Trachea midline, no thyromegaly or masses palpated, and no cervical lymphadenopathy. Supple, full range of motion without nuchal rigidity, or vertebral point tenderness. No Meningismus. Chest/axilla: Normal chest wall appearance and motion. Nontender with no deformity. No lesions are appreciated. Cardiovascular: Regular rate and rhythm with a normal S1 and S2. No gallops, murmurs, or rubs. Normal PMI, no JVD. No pulse deficits. Respiratory: Lungs have equal breath sounds bilaterally, clear to auscultation and percussion. No rales, rhonchi or wheezes noted. No increased work of breathing, no retractions or nasal flaring. Abdomen/GI: Soft, non-tender, with normal bowel sounds. No distension or tympany. No guarding or rebound. No evidence of tenderness throughout. Back: No spinal tenderness. No costovertebral tenderness. Full range of motion. Neuro: Awake and alert, GCS 15, oriented to person, place, time, and situation. Cranial nerves II-XII grossly intact. Motor strength 5/5 in all extremities. Sensory grossly intact. Cerebellar exam normal. Normal gait. Psych: Awake, alert, with orientation to person, place and time. Behavior, mood, and affect are within normal limits. 18:33 Skin: Appearance: normal except for affected area, cellulitis, that is mild, on the dorsum of left foot, injury, contusion(s), that are deep, of the dorsum of left foot. Vital Signs: 17:49 BP 159 / 81; Pulse 78; Resp 18; Temp 97.8; Pulse Ox 100% on R/A; Weight 85.73 kg; ph Height 5 ft. 9 in. ; 20:34 BP 171 / 79; Pulse 67; Resp 18; Pulse Ox 99% ; nj1 17:49 Body Mass Index 27.91 (85.73 kg, 175.26 cm) ph MDM: 18:01 Patient medically screened. snw 19:15 Differential diagnosis: closed fracture, tendonitis. Data reviewed: vital signs, nurses snw notes, radiologic studies, plain films. Counseling: I had a detailed discussion with the patient and/or guardian regarding: the historical points, exam findings, and any diagnostic results supporting the discharge/admit diagnosis, the presence of at least one elevated blood pressure reading (>120/80) during this emergency department visit, radiology results, the need for outpatient follow up, for definitive care, to return to the emergency department if symptoms worsen or persist or if there are any questions or concerns that arise at home. Special discussion: I have referred the patient to see his PCP for further evaluation of high blood pressure. Based on the history and exam findings, there is no indication for further emergent testing or inpatient evaluation. I discussed with the patient/guardian the need to see the orthopedic surgeon for further evaluation of the symptoms. I discussed with the patient/guardian the need to see the primary care provider for further evaluation of the symptoms. 19:20 Independent interpretation of the following test(s) in the Emergency Department X-Ray: snw My interpretation is at least one metatarsal fracture. 19:25 Transition of care: After a detail discussion of the patient's case, care is snw transferred to Baljinder Chavarria MD. 03/03 17:52 Order name: XRAY Foot LEFT 3 View; Complete Time: 19:39 ph 03/03 18:39 Order name: Betty. Order: elevate left lower ext; Complete Time: 19:18 snw 03/03 19:15 Order name: Posterior Orthoglass Ankle Splint; Complete Time: 19:46 snw 03/03 19:15 Order name: Betty. Order: Walker; Complete Time: 20:35 snw Administered Medications: 19:18 Drug: Hydrocodone-Acetaminophen PO (7.5 mg-325 mg) 1 tabs Route: PO; ll3 19:30 Follow up: Response: No adverse reaction nj1 20:04 Drug: Cephalexin PO 500 mg Route: PO; nj1 20:35 Follow up: Response: No adverse reaction nj1 Disposition: 19:44 Co-signature as Attending Physician, Baljinder Chavarria MD I reviewed the patient's care rt provided by Advanced Practice Provider \\T\\ agree w/ the diagnosis \\T\\ care plan. I personally saw the pt \\T\\ performed a substantive portion of the visit, incldng all aspects of the (History/Exam/Medical Decision Making). I reevaluated the patient's foot after splinting. He has neurovascularly intact, good capillary refill, good movement. I discussed findings of the x-ray with the patient, he will follow-up with orthopedics as an outpatient.. Disposition Summary: 03/03/23 19:44 Discharge Ordered Location: Home rt Condition: Stable rt Diagnosis - Crushing injury of foot rt - Cellulitis of left lower limb rt Followup: snw - With: Emergency Department - When: As needed - Reason: Worsening of condition Followup: snw - With: Private Physician - When: 1 - 2 days - Reason: Recheck today's complaints, Continuance of care, Re-evaluation by your physician Discharge Instructions: - Discharge Summary Sheet snw - Cast or Splint Care, Adult snw - Cellulitis, Adult snw - Metatarsal Fracture snw - RICE Therapy for Routine Care of Injuries snw - How to Use a Walker snw - Foot Pain snw Forms: - Medication Reconciliation Form rt - Thank You Letter rt - Antibiotic Education rt - Prescription Opioid Use rt Prescriptions: - Cephalexin 500 mg Oral Capsule - take 1 capsule by ORAL route every 8 hours for 10 days; 30 capsule; Refills: 0, snw Product Selection Permitted - Tramadol 50 mg Oral Tablet - take 1 tablet by ORAL route every 8 hours as needed; 12 tablet; Refills: 0, snw Product Selection Permitted Signatures: Dispatcher [employer] Melany Lynne FNP-C FINISH MOLDER-Csnw Vivi Johns RN RN Rey Rucker RN RN ll3 Baljinder Chavarria MD MD rt Mikaela Guzman RN RN nj1
[2023-03-03] MEDS ORDERED: CEPHALEXIN 250 MG CAP ONE (20:01)
[2023-03-03 21:32] VITALS: TEMP 97.8
[2023-03-03 21:33] VITALS: BP 171/79; O2SAT 99
== END 2023-03-03 21:04 | disposition home or self-care (01) ==
LOC: ER 17:35
PROC: 2W3TX1Z Immobilization of Left Foot using Splint (ICD-10-PCS; principal; 2023-03-03)
DX: L03.116 Cellulitis of left lower limb (principal)

== ENCOUNTER → 2023-11-02 | Emergency (ER) | payer OTHER ==
[~2023-11-02] MED LIST: HYDROCODONE/APAP 10/325 TAB ONE
--- NOTE | 2023-11-02 11:41 | RAD REPORT ---
EXAM DESCRIPTION: RAD - Foot Left 3 View - 11/02/2023 11:19 am CLINICAL HISTORY: PAIN COMPARISON: Foot Left 3 View dated 03/03/2023 FINDINGS: Prominent bony remodeling and callus formation is seen at the level of the second metatars al shaft. This is compatible with remote fracture. There is prominent degenerative change at the firs t tarsal metatarsal joint. Mild widening at the base of the first and second metatarsals is up to 5 m m can be seen in underlying Lisfranc injury.
--- NOTE | 2023-11-02 13:34 | EDPHYS ---
Physician Documentation [facility] Name: Anthony Rooney Age: 72 yrs Sex: Male : 1950 Arrival Date: 11/02/2023 Time: 10:43 Bed 7 Private MD: Delonte Muellerh ED Physician Baljinder Chavarria HPI: 11/02 15:28 This 72 yrs old Male presents to ER via Ambulatory with complaints of Foot rt Injury. 15:28 Patient presents to the ED with injury to the left foot. Patient dropped an 80 pound rt concrete block on his left foot about 2 days ago. Reports pain, swelling to the area. Denies other acute complaints at this time, symptoms are moderate in severity, aching nature, nonradiating, no other aggravating or alleviating factors.. Historical: - Allergies: 10:53 No Known Allergies; db - PMHx: 10:53 Diabetes - IDDM; High Cholesterol; Hypertension; Ulcers; db - PSHx: 10:53 None; db - Immunization history:: Adult Immunizations unknown. - Social history:: Smoking status: Patient denies any tobacco usage or history of. - Family history:: not pertinent. ROS: 15:28 Constitutional: Negative for fever, chills, and weight loss, Cardiovascular: Negative rt for chest pain, palpitations, and edema, Respiratory: Negative for shortness of breath, cough, wheezing, and pleuritic chest pain, Abdomen/GI: Negative for abdominal pain, nausea, vomiting, diarrhea, and constipation, Skin: Negative for injury, rash, and discoloration, Neuro: Negative for headache, weakness, numbness, tingling, and seizure, Psych: Negative for depression, anxiety, suicide ideation, homicidal ideation, and hallucinations, 15:28 MS/extremity: Positive for pain, swelling, Exam: 15:28 Constitutional: This is a well developed, well nourished patient who is awake, alert, rt and in no acute distress. Head/Face: Normocephalic, atraumatic. Chest/axilla: Normal chest wall appearance and motion. Nontender with no deformity. No lesions are appreciated. Cardiovascular: Regular rate and rhythm with a normal S1 and S2. No gallops, murmurs, or rubs. Normal PMI, no JVD. No pulse deficits. Respiratory: Lungs have equal breath sounds bilaterally, clear to auscultation and percussion. No rales, rhonchi or wheezes noted. No increased work of breathing, no retractions or nasal flaring. Abdomen/GI: Soft, non-tender, with normal bowel sounds. No distension or tympany. No guarding or rebound. No evidence of tenderness throughout. Neuro: Awake and alert, GCS 15, oriented to person, place, time, and situation. Cranial nerves II-XII grossly intact. Motor strength 5/5 in all extremities. Sensory grossly intact. Cerebellar exam normal. Normal gait. Psych: Awake, alert, with orientation to person, place and time. Behavior, mood, and affect are within normal limits. 15:28 Musculoskeletal/extremity: Bruising, swelling to the left foot, tenderness diffusely, no tenderness to the medial or lateral malleolus, pulses, motor, sensation are intact.. Vital Signs: 10:52 BP 199 / 102; Pulse 85; Resp 18; Temp 98.1(O); Pulse Ox 98% ; Weight 86.18 kg; Height 5 db ft. 9 in. ; Pain 9/10; 12:43 BP 160 / 71; Pulse 107; Resp 18; Pulse Ox 95% on R/A; me1 13:00 BP 183 / 90; Pulse 70; Resp 16; Pulse Ox 100% on R/A; me1 10:52 Body Mass Index 28.06 (86.18 kg, 175.26 cm) db 10:52 Pain Scale: Adult db MDM: 10:53 Patient medically screened. rt 15:28 Differential diagnosis: Fracture, ligamentous disruption, contusion. Data reviewed: rt vital signs, nurses notes, radiologic studies. Management of patient was discussed with the following: Sanitation Officer: Discussed with Dr. Ziegler, orthopedics for possibility of Lisfranc injury. States they will follow-up the patient, recommends splinting. This injury may be old as he has a prior healed metatarsal fracture. Independent interpretation of the following test(s) in the Emergency Department X-Ray: My interpretation is Old second metatarsal fracture seen on interpretation of x-ray images. Care significantly affected by the following chronic conditions: Diabetes, Hypertension. Counseling: I had a detailed discussion with the patient and/or guardian regarding the historical points, exam findings, and any diagnostic results supporting the discharge/admit diagnosis, radiology results, the need for outpatient follow up, to return to the emergency department if symptoms worsen or persist or if there are any questions or concerns that arise at home. ED course: I reevaluated the foot prior to after splinting, pulses, motor, sensation are intact. 11/02 11:07 Order name: Glucose, Ancillary Testing; Complete Time: 11:09 EDMS 11/02 10:53 Order name: Foot Left 3 View XRAY; Complete Time: 11:44 rt 11/02 13:07 Order name: Splint Leg: Short Leg; Complete Time: 13:37 rt 11/02 13:07 Order name: Crutches; Complete Time: 13:35 rt Administered Medications: 11:05 Drug: [place] PO 10 mg-325 mg 1 tabs PO once Route: PO; ph 13:30 Follow up: Response: No adverse reaction me1 Point of Care Testing: Blood Glucose: 10:55 Blood Glucose: 155 mg/dL; db Ranges: Critical Glucose Levels:Adult <50 mg/dl or >400 mg/dl <40 mg/dl or >180 mg/dl Disposition Summary: 11/02/23 13:33 Discharge Ordered Notes: Location: Home rt Problem: new rt Symptoms: have improved rt Condition: Stable rt Diagnosis - Contusion to left foot, possible Lisfranc injury rt Followup: rt - With: Favian Ziegler MD - When: 2 - 3 days - Reason: Discharge Instructions: - Discharge Summary Sheet rt - Contusion rt - Lisfranc Injury rt Forms: - Medication Reconciliation Form rt - Thank You Letter rt - Antibiotic Education rt - Prescription Opioid Use rt - Patient Portal Instructions rt - Leadership Thank You Letter rt Prescriptions: - acetaminophen-codeine 300-30 mg Oral tablet - take 1 tablet ORAL route every 4 hours; 18 tablet; Refills: 0, Product rt Selection Permitted Signatures: Dispatcher [employer] Vivi Bartholomew RN RN ph Cailin Louis RN RN db Baljinder Chavarria MD MD rt Cathryn Diaz RN me1
--- NOTE | 2023-11-02 13:34 | ER ---
Nurse's Notes [facility] Name: Anthony Rooney Age: 72 yrs Sex: Male : 1950 Arrival Date: 11/02/2023 Time: 10:43 Bed 7 Private MD: Marquis Mueller Diagnosis: Contusion to left foot, possible Lisfranc injury Presentation: 11/02 10:52 Chief complaint: Patient states: LEFT FOOT INJURY 2 DAYS STATES DROPPED ABOUT 80 LB ON db FOOT. NOTED SWELLING AND PAIN WITH AMBULATION. Coronavirus screen: Client denies travel out of the [place] in the last 14 days. At this time, the client does not indicate any symptoms associated with coronavirus-19. Ebola Screen: Patient negative for fever greater than or equal to 101.5 degrees Fahrenheit, and additional compatible Ebola Virus Disease symptoms Patient denies exposure to infectious person. Patient denies travel to an Ebola-affected area in the 21 days before illness onset. No symptoms or risks identified at this time. Initial Sepsis Screen: Does the patient meet any 2 criteria? No. Patient's initial sepsis screen is negative. Does the patient have a suspected source of infection? No. Patient's initial sepsis screen is negative. Risk Assessment: Do you want to hurt yourself or someone else? Patient reports no desire to harm self or others. Onset of symptoms was October 31, 2023. 10:52 Method Of Arrival: Ambulatory db 10:52 Acuity: NAE 3 db Triage Assessment: 10:55 General: Appears in no apparent distress. uncomfortable, Behavior is calm, cooperative. db Pain: Complains of pain in left foot. Musculoskeletal: Circulation, motion, and sensation intact. Capillary refill < 3 seconds, Swelling present in left foot. 14:04 Injury Description: dropped an 80 lb bag of concrete on his left foot. me1 Historical: - Allergies: 10:53 No Known Allergies; db - PMHx: 10:53 Diabetes - IDDM; High Cholesterol; Hypertension; Ulcers; db - PSHx: 10:53 None; db - Immunization history:: Adult Immunizations unknown. - Social history:: Smoking status: Patient denies any tobacco usage or history of. - Family history:: not pertinent. Screenin:22 [facility] ED Fall Risk Assessment (Adult) History of falling in the last 3 months, ph including since admission No falls in past 3 months (0 pts) Score/Fall Risk Level 0 - 2 = Low Risk Oriented to surroundings, Maintained a safe environment, Provided non-skid footwear, Hourly rounding (assess needs \T\ fall precautionary measures) done. Abuse screen: Denies threats or abuse. Denies injuries from another. Nutritional screening: No deficits noted. Tuberculosis screening: No symptoms or risk factors identified. Assessment: 11:22 General: Appears in no apparent distress. Behavior is calm, cooperative, appropriate ph for age. Pain: Complains of pain in left foot. Neuro: Level of Consciousness is awake, alert, obeys commands, Oriented to person, place, time, situation. Derm: Skin is pink, warm \T\ dry. Musculoskeletal: Swelling present in left foot. Vital Signs: 10:52 BP 199 / 102; Pulse 85; Resp 18; Temp 98.1(O); Pulse Ox 98% ; Weight 86.18 kg; Height 5 db ft. 9 in. ; Pain 9/10; 12:43 BP 160 / 71; Pulse 107; Resp 18; Pulse Ox 95% on R/A; me1 13:00 BP 183 / 90; Pulse 70; Resp 16; Pulse Ox 100% on R/A; me1 10:52 Body Mass Index 28.06 (86.18 kg, 175.26 cm) db 10:52 Pain Scale: Adult db ED Course: 10:46 Patient arrived in ED. rg4 10:46 Marquis Mueller DO is Private Physician. rg4 10:46 Baljinder Chavarria MD is Attending Physician. rt 10:53 Triage completed. db 10:55 Arm band placed on Patient placed in an exam room. db 10:58 Vivi Johns, RN is Primary Nurse. ph 11:21 Foot Left 3 View XRAY In Process Unspecified. EDMS 11:23 Patient has correct armband on for positive identification. Bed in low position. Call ph light in reach. Side rails up X 1. Door closed. Noise minimized. Ice pack to injury. 13:30 Favian Ziegler MD is Referral Physician. rt 13:40 Patient did not have IV access during this emergency room visit. me1 14:03 Provided Education on: POC. Verbalized understanding. . me1 14:03 No provider procedures requiring assistance completed. me1 Administered Medications: 11:05 Drug: [place] PO 10 mg-325 mg 1 tabs PO once Route: PO; ph 13:30 Follow up: Response: No adverse reaction me1 Medication: 11:23 VIS not applicable for this client. Point of Care Testing: Blood Glucose: 10:55 Blood Glucose: 155 mg/dL; db Ranges: Outcome: 13:33 Discharge ordered by . rt 13:48 Patient left the ED. bd 14:03 Discharged to home via wheelchair, with crutches, with family, vt1 14:03 Condition: stable 14:03 Discharge instructions given to patient, family, Instructed on discharge instructions, follow up and referral plans. medication usage, Demonstrated understanding of instructions, follow-up care, medications, Prescriptions given X 1, Signatures: Dispatcher [employer] EDMS Pam Villegas Patricia, RN RN Liz Wilkes rg4 Cailin Louis RN RN db Baljinder Chavarria MD MD rt Cathryn Diaz RN RN me1
[2023-11-02 14:15] VITALS: BP 160/71; TEMP 98.1; O2SAT 95
== END ==
LOC: ER 10:43
DX: S90.32XA Contusion of left foot, initial encounter (principal)
CPT/HCPCS: 82947

== ENCOUNTER 2024-08-30 08:38 | Emergency (ER) | payer OTHER ==
[2024-08-30 10:31] LABS: Absolute Eosinophils 0.2 K/uL (0-0.5); Absolute Lymphocytes (CBC) 1.5 K/uL (0.7-4.9); Absolute Monocytes 0.4 K/uL (0.1-1.3); Absolute Neutrophil 2.2 K/uL (1.8-8.0); Basophils % 0.7 % (0-1.3); Eosinophils % 5.1 % (0-4.4); Hematocrit 38.7 % (39.6-49.0); Hemoglobin 12.8 g/dL (13.6-17.9); Lymphocytes % 34.5 % (15.3-44.8); MCH 28.8 pg (27.0-35.0); MCHC 33.2 g/dL (32.0-36.0); MPV 6.6 fL (7.6-11.3); Monocytes % 8.8 % (3.3-12.3); Neutrophils % 50.9 % (41.7-73.7); Platelets 325 thou/uL (152-406); RBC Red Blood Cell Count 4.45 M/uL (4.33-5.43)
[2024-08-30] MEDS ORDERED: HYDROCODONE/APAP 10/325 TAB ONE (10:34)
[2024-08-30 10:45] LABS: Anion Gap 14.9 mEq/L (5.0-15.0); Potassium 3.9 mEq/L (3.5-5.1)
--- NOTE | 2024-08-30 10:45 | RAD REPORT ---
EXAM: CT brain without contrast HISTORY: headache, right eye pain COMPARISON: Brain MRI 10/06/2021, brain CT 06/12/2019 TECHNIQUE: Multiple contiguous axial images were obtained and a CT of the brain without contrast. Sag ittal and coronal reformats were performed. One or more of the following dose reduction techniques were used: Automated exposure control, adjust ment of the mA and/or kV according to patient size, and/or iterative reconstruction. FINDINGS: No evidence of hydrocephalus, intracranial hemorrhage, or extra-axial fluid collection. Mild brain atrophy with mild periventricular and deep white matter chronic microvascular ischemic ch anges present. Mild divergent gaze. No evidence of midline shift or areas of brain edema. The calvarium is intact. The visualized paranasal sinuses and mastoid air cells are essentially clear . Mild vertebral atherosclerosis. IMPRESSION: No evidence of acute intracranial abnormality.
--- NOTE | 2024-08-30 11:07 | RAD REPORT ---
EXAMINATION: CTA HEAD CLINICAL INDICATION: headache, right eye pain TECHNIQUE: Axial CT images were obtained through the head after intravenous contrast utilizing angiog raphic protocol with 3D post-processing (maximum intensity projection images, volume rendered images and/or shaded surface rendered images). One or more of the following dose reduction technique s were used: Automated exposure control, adjustment of the mA and/or kV according to patient size, and/or iterative reconstruction. Unless otherwise specified, incidental findings do not require dedic ated imaging follow-up. COMPARISON: No prior exam. FINDINGS: ICA: The petrous, cavernous, and supraclinoid segments of the bilateral internal carotid arteries are normal. The ophthalmic artery origins are visualized and normal. The posterior communicating arteries are patent. PEYMAN: Anterior cerebral arteries are normal bilaterally. The anterior communicating artery is patent. MCA: Small potential 3 mm aneurysm at the trifurcation of the right M1 segment. CYLINDER STEAMER: Posterior cerebral arteries are normal bilaterally. Vertebrobasilar: The vertebral arteries are patent. The basilar artery is normal in appearance. 3D images confirm these findings. IMPRESSION: Small 3 mm aneurysm likely present trifurcation of the right M1 segment. Elsewhere, there is no signi ficant flow abnormality detected.
--- NOTE | 2024-08-30 12:33 | ER ---
Nurse's Notes [facility] Name: Anthony Rooney Age: 73 yrs Sex: Male : 1950 Arrival Date: 08/30/2024 Time: 08:38 Bed 13 Private MD: Diagnosis: Headache;Cerebral aneurysm, nonruptured Presentation: 08/30 08:50 Chief complaint: Patient states: she shoulder pain and right eye pain, he has been iw unable to open his right eye for months due to an aneurysm. 08:50 Method Of Arrival: Ambulatory iw 08:52 Coronavirus screen: At this time, the client does not indicate any symptoms associated iw with coronavirus-19. Ebola Screen: No symptoms or risks identified at this time. Mechanism of Injury: No Mechanism of Injury. The patient denies any loss of vision. Initial Sepsis Screen: Does the patient meet any 2 criteria? No. Patient's initial sepsis screen is negative. Does the patient have a suspected source of infection? No. Patient's initial sepsis screen is negative. Risk Assessment: Do you want to hurt yourself or someone else? Patient reports no desire to harm self or others. Onset of symptoms. 08:52 Acuity: NAE 3 iw Triage Assessment: 08:56 General: Appears in no apparent distress. uncomfortable, Behavior is calm, cooperative, bp appropriate for age. Pain: Complains of pain in right eye. EENT: Reports pain in right eye. Neuro: No deficits noted. Cardiovascular: No deficits noted. Respiratory: No deficits noted. GI: No signs and/or symptoms were reported involving the gastrointestinal system. : No signs and/or symptoms were reported regarding the genitourinary system. Derm: No deficits noted. Musculoskeletal: No deficits noted. Historical: - Allergies: 12:39 No Known Allergies; bp - PMHx: 08:52 Diabetes - IDDM; High Cholesterol; Hypertension; Ulcers; iw - Immunization history:: Adult Immunizations up to date. - Infectious Disease History:: Denies. - Family history:: not pertinent. - Social history:: Smoking status: Patient denies any tobacco usage or history of. - Hospitalizations: : No recent hospitalization is reported. Screenin:58 [facility] ED Fall Risk Assessment (Adult) History of falling in the last 3 months, bp including since admission No falls in past 3 months (0 pts) Confusion or Disorientation No (0 pts) Intoxicated or Sedated No (0 pts) Impaired Gait No (0 pts) Mobility Assist Device Used No (0 pt) Altered Elimination No (0 pt) Score/Fall Risk Level 0 - 2 = Low Risk Oriented to surroundings. Abuse screen: Denies threats or abuse. Denies injuries from another. Nutritional screening: No deficits noted. Tuberculosis screening: No symptoms or risk factors identified. Assessment: 08:58 General: Appears in no apparent distress. comfortable, Behavior is cooperative, bp appropriate for age, anxious. EENT: Eyes are tearing on right eye Sclera/Cornea are reddened in right eye. 11:47 Reassessment: Patient appears in no apparent distress at this time. Patient is alert, iw oriented x 3, equal unlabored respirations, skin warm/dry/pink. Vital Signs: 10:31 BP 192 / 83; Pulse 63; Resp 16; Temp 98; Pulse Ox 100% ; iw 11:46 BP 191 / 78; Pulse 57; Resp 16; Pulse Ox 100% ; iw 12:37 BP 178 / 79; Pulse 56; Resp 15; Pulse Ox 99% ; bp ED Course: 08:40 Patient arrived in ED. im 08:44 Yogesh Pacheco MD is Attending Physician. rn 08:52 Triage completed. iw 08:53 Jaison Villa, MONIKA is Primary Nurse. bp 08:56 Arm band placed on. bp 08:58 Patient has correct armband on for positive identification. bp 10:32 CT Head Brain wo Cont In Process Unspecified. EDMS 10:32 Initial lab(s) drawn, by me, sent to lab. Inserted saline lock: 20 gauge in right iw antecubital area, using aseptic technique. Blood collected. 10:[address] In Process Unspecified. EDMS 12:38 No provider procedures requiring assistance completed. IV discontinued, intact, bp bleeding controlled, No redness/swelling at site. Pressure dressing applied. 12:39 Provided Education on: n/a. bp Administered Medications: 10:42 Drug: [place] PO 10 mg-325 mg 1 tabs PO once Route: PO; iw 12:38 Follow up: Response: No adverse reaction bp Medication: 08:58 VIS not applicable for this client. bp Outcome: 12:32 Discharge ordered by . rn 12:38 Discharged to home ambulatory, bp 12:38 Condition: stable 12:38 Discharge instructions given to patient, Instructed on discharge instructions, follow up and referral plans. medication usage, Demonstrated understanding of instructions, follow-up care, medications, Prescriptions given X 1, 12:41 Patient left the ED. iw Signatures: Dispatcher [employer] Jessica Heath, RN RN Yogesh Washington MD MD rn Peltier, Brian, RN RN bp Mendoza, Itzel im
--- NOTE | 2024-08-30 12:33 | EDPHYS ---
Physician Documentation [facility] Name: Anthony Rooney Age: 73 yrs Sex: Male : 1950 Arrival Date: 08/30/2024 Time: 08:38 Bed 13 Private MD: ED Physician Yogesh Pacheco HPI: 08/30 11:05 This 73 yrs old Male presents to ER via Ambulatory with complaints of headache.rn 11:05 The patient is experiencing pain. rn 11:06 Onset: The symptoms/episode began/occurred 1 week(s) ago. Aggravated by nothing. rn Alleviated by nothing. Severity of symptoms: At their worst the symptoms were moderate in the emergency department the symptoms are unchanged. The patient has experienced similar episodes in the past. Patient reports right headache, pain posterior to right eye for at least a week if not longer. Reports has had an aneurysm that left his right eye drooping shot 4 months and has seen ophthalmology with laser treatments for vitreous bleed as well. Reports vision is normal if he opens his eyelid. Reports pain behind right eye. No trauma. Reports clear drainage out of right eye.. Historical: - Allergies: 12:39 No Known Allergies; bp - PMHx: 08:52 Diabetes - IDDM; High Cholesterol; Hypertension; Ulcers; iw - Immunization history:: Adult Immunizations up to date. - Infectious Disease History:: Denies. - Family history:: not pertinent. - Social history:: Smoking status: Patient denies any tobacco usage or history of. - Hospitalizations: : No recent hospitalization is reported. ROS: 11:06 Constitutional: Negative for fever, chills, and weight loss, Eyes: Positive for pain to rn right eye and behind right eye Cardiovascular: Negative for chest pain, palpitations, and edema, Respiratory: Negative for shortness of breath, cough, wheezing, and pleuritic chest pain, Abdomen/GI: Negative for abdominal pain, nausea, vomiting, diarrhea, and constipation, Neuro: Negative for weakness, numbness, tingling, and seizure, Exam: 11:06 Constitutional: This is a well developed, well nourished patient who is awake, alert, rn and in no acute distress. Head/Face: Normocephalic, atraumatic. Eyes: Pupils equal round and reactive to light, extra-ocular motions intact. Right eye closed, normal vision when eyes open. Clear ocular drainage from right eye. Neck: No Meningismus. Neuro: Awake and alert, GCS 15 Vital Signs: 10:31 BP 192 / 83; Pulse 63; Resp 16; Temp 98; Pulse Ox 100% ; iw 11:46 BP 191 / 78; Pulse 57; Resp 16; Pulse Ox 100% ; iw 12:37 BP 178 / 79; Pulse 56; Resp 15; Pulse Ox 99% ; bp MDM: 08:44 Medical Screening Exam initiated rn 12:30 Differential diagnosis: known cerebral aneurysm, ocular pain, migraine, headache. Data rn reviewed: vital signs, nurses notes, lab test result(s), radiologic studies, CT scan, and as a result, I will discharge patient. Counseling: I had a detailed discussion with the patient and/or guardian regarding the historical points, exam findings, and any diagnostic results supporting the discharge/admit diagnosis, lab results, radiology results, the need for outpatient follow up, to return to the emergency department if symptoms worsen or persist or if there are any questions or concerns that arise at home. Response to treatment: the patient's symptoms have resolved after treatment, the patient's condition has returned to base line, the patient is now symptom free, and as a result, I will discharge patient. Special discussion: I discussed with the patient/guardian in detail that at this point there is no indication for admission to the hospital. It is understood, however, that if the symptoms persist or worsen the patient needs to return immediately for re-evaluation. Based on the history and exam findings, there is no indication for further emergent testing or inpatient evaluation. neurosurgery. ED course: CT shows small 3 mm nonbleeding aneurysm right side. Patient states has known about this aneurysm for 15 years now and has just been watched in the past. No active bleeding. No acute complication at this time. Pain resolved with hydrocodone. Will discharge home with follow-up with ophthalmology and neurosurgery for aneurysm.. 08/30 10:09 Order name: BMP; Complete Time: 10:55 rn 08/30 10:09 Order name: CBC with Diff; Complete Time: 10:55 rn 08/30 11:46 Order name: CREATININE WHOLE BLOOD; Complete Time: 12:24 EDMS 08/30 10:09 Order name: CT Head Brain wo Cont; Complete Time: 10:55 rn 08/30 10:09 Order name: Head Angio CT; Complete Time: 12:24 rn 08/30 10:09 Order name: IV Start; Complete Time: : rn 08/30 10:09 Order name: Glucose Level; Complete Time: : rn Administered Medications: 10:42 Drug: [place] PO 10 mg-325 mg 1 tabs PO once Route: PO; iw 12:38 Follow up: Response: No adverse reaction bp Disposition Summary: 08/30/24 12:32 Discharge Ordered Notes: Location: Home rn Problem: chronic rn Symptoms: have improved rn Condition: Stable rn Diagnosis - Headache rn - Cerebral aneurysm, nonruptured rn Followup: rn - With: Private Physician - When: As needed - Reason: Recheck today's complaints, Re-evaluation by your physician Discharge Instructions: - Discharge Summary Sheet rn - General Headache Without Cause rn - Cerebral Aneurysm rn Forms: - Medication Reconciliation Form rn - Antibiotic rn access - Prescription Opioid Use rn - Patient Portal Instructions rn - Leadership Thank You Letter rn Prescriptions: - Tramadol 50 mg Oral tablet - take 1 tablet ORAL route every 8 hours As needed as needed; 15 tablet; Refills: rn 0, Product Selection Permitted Signatures: Dispatcher [employer] Jessica Heath, RN RN Yogesh Washington MD MD rn Peltier, Brian, RN RN bp
[2024-08-30 12:56] VITALS: TEMP 98
[2024-08-30 13:08] VITALS: BP 178/79; O2SAT 99
== END 2024-08-30 12:41 | disposition home or self-care (01) ==
LOC: ER 08:38
DX: I67.1 Cerebral aneurysm, nonruptured (principal); E11.9 Type 2 diabetes mellitus without complications; E78.00 Pure hypercholesterolemia, unspecified; I10 Essential (primary) hypertension; Z79.4 Long term (current) use of insulin
CPT/HCPCS: 85025; 80048; 36415; 82565; 70450; 70496; 99284; Q9967